=== PATIENT | male | born 1955 | race Caucasian/White ===

== ENCOUNTER 2024-03-06 20:45 | Inpatient (IN) | payer MEDICARE, SELFPAY ==
[2024-03-06] VITALS (10 sets, daily range): BP systolic 115–135; BP diastolic 78–95; BMI 28.5
[2024-03-06 16:26] LABS: Glucose - Point of Care 70 mg/dl (70-99)
--- NOTE | 2024-03-06 16:34 | ED.GENMED ---
History of Present Illness
General
Chief Complaint: Change in Mental Status
Source: health care facilities inspector, physician ([employer]) and senior living records
Exam Limitations: altered mental status
Time Seen by Provider: 03/06/24 16:25
Nursing documentation reviewed up to this point in time: agreed with
Travel History
Have you had any contact with someone who has COVID-19?: Unable to Answer
Do you have any symptoms of coronavirus? Fever > 100 degrees, chills, cough, shortness of breath, sore throat, loss of taste or smell, muscle aches, or headache?: Unable to Answer
History of Present Illness
History of Present Illness:
69-year-old male with a past medical history of hypertension, hyperlipidemia, diabetes, recent stroke, alcohol abuse who presents to the emergency department from cardiology office for a change in mental status. Patient cannot participate in
history as he is essentially unresponsive. Chart review shows that he had a stroke last year and has severe dysarthria and is a chronic senior living resident. According to caregiver patient apparently has had increasing lethargy over the past 5
days. Apparently today presented to a routine cardiology appointment and physician walked in to find patient essentially unresponsive and he was sent over to the emergency room to be assessed. Had an EKG in the office which showed sinus
tachycardia. Reviewed senior living records�patient is DNR/DNI.
Past History
Past History
ED Past Medical History: CVA (2017 and 2022), HTN, Hypercholesterolemia, NIDDM, Psychiatric (Generalized anxiety disorder) and Other (Orthostatic hypotension, episode encephalopathy January 2023)
ED Past Surgical History: Orthopedic
Patient has exhibited threatening behavior?: No
PSI?: No
Social History
Tobacco: Smoker
Alcohol: Other (unclear from October 2022)
Drug: None
Personal:
Living: with family
Employment: Employed ([employer])
Family History
Family History: Other (reviewed and non-contributory)
Review of Systems
Review of Systems
Unable to obtain full review of systems at this time due to: non-verbal
All Other Systems: Not applicable
Phy Exam
Physical Exam
Physical Exam:
General: Laying in bed eyes closed, opens eyes to vigorous physical stimulation; not responding verbally to questioning
Head: Normocephalic, atraumatic
Eyes: Conjunctiva normal, pupils are equal round and reactive to light bilaterally approximately 3 to 4 mm
Throat: Airway intact, handling secretions
Neck: Trachea midline, supple without meningismus
Lungs: Diminished at the lung bases bilaterally; his respiratory rate is in the low 20s, pulse ox 94% on room air
Heart: Tachycardia with regular rhythm, no murmurs, gallops, or rubs
Abd: Soft, non distended, no palpable masses
Neuro: Lethargic and difficult to arouse, no verbal response; he is contracted in his extremities
Extremities: Contracted, no edema in extremities, equal pulses in all extremities
Scores
Heart Failure Risk
Heart Failure Risk Score: Not Applicable
Heart Score for Chest Pain Patients
STEMI patient?: Not applicable
Withdrawal Assessment of Alcohol
Withdrawal Assessment Completed?: Not applicable
Course
Orders/Labs/Results
Orders:
Orders
03/06/24 16:25
CT Head W/o Iv Contrast Urgent
Comment:
Reason For Exam: unresponsive
03/06/24 16:26
Electrocardiogram (*1) Urgent
Reason for Study: Fatigue / Weakness
EKG- Treatment ONCE
CR Chest Portable - 1 View Urgent
Comment:
Reason For Exam: confused, eval for pna
Reason Study Needs to be Portable: Unable to Transport
03/06/24 16:27
Electrocardiogram (*1) Urgent
Reason for Study: Tachycardia
EKG- Treatment ONCE
03/06/24 16:30
Dextrose 50%-Water [Dextrose 50% Syringe] 25 grams .ROUTE .[facility]
03/06/24 16:31
Acetaminophen [Tylenol/Feverall] 650 mg .ROUTE .[facility]
03/06/24 17:00
Alcohol Urgent
CPK [Creatine Phosphokinase] Urgent
Complete Blood Count/With Diff Urgent
Comprehensive Metabolic Panel Urgent
Lactate Level [Lactic Acid] Urgent
Blood Culture Q30M
DOM Source: Blood/Venous
Specimen Description:
Blood Culture Q30M
DOM Source: Blood/Venous
Specimen Description:
03/06/24 17:30
Drug Screen, Urine [Urine Drug Abuse Screen] Urgent
Date Specimen was Collected: 03/06/24
Time Specimen was Collected: 17:28
Urinalysis Reflex To Culture Urgent
Date Specimen was Collected: 03/06/24
Time Specimen was Collected: 17:28
Urine Microscopic Reflex Cult Urgent
Urine Culture Urgent
DOM Source: U
Specimen Description:
Date Specimen was Collected: 03/06/24
Time Specimen was Collected: 17:28
03/06/24 17:32
COVID-19 Antigen Urgent
Source: Nasal Swab
Influenza A+B Rapid Molecular Urgent
DOM Source: Nasal Swab
Specimen Description:
03/06/24 18:13
Dextrose 50%-Water [Dextrose 50% Syringe] 25 grams IV NOW STA
03/06/24 18:26
Acetaminophen [Tylenol/Feverall] 650 mg RECTAL NOW STA
03/06/24 18:28
0.9% Sodium Chloride 500 ml [Nss] 500 ml IV BOLUS
03/06/24 19:30
Vancomycin 1500 mg IVPB NOW Vancomycin [Vancocin] 1,500 mg 0.9% Sodium Chloride [Nss] 20 ml 0.9% Sodium Chloride 250 ml [Nss] 250 ml IV NOW
Zosyn 3.375 grams IVPB NOW Piperacillin/Tazo 3.375 Gram [Zosyn] 3.375 gram in 50 ml IV NOW
Abnormal Lab Results
03/06/24 03/06/24
17:00 17:30
WBC 14.0 H 10^3/uL
(4.8-10.8)
MCHC 31.7 L g/dL
(33.0-37.0)
MPV 11.5 H fL
(7.4-10.4)
Abs Immat Gran (auto) 0.1 H 10^3/uL
(0-0.05)
Absolute Neuts (auto) 11.5 H 10^3/uL
(1.4-6.5)
Absolute Monos (auto) 1.2 H 10^3/uL
(0.1-0.6)
Neutrophils % 82.4 H %
(42.2-75.2)
Lymphocytes % 8.6 L %
(20.5-51.1)
Sodium 154 H mmol/L
(135-145)
Chloride 114 H mmol/L
(98-107)
BUN 75 H mg/dl
(9-20)
Creatinine 1.9 H mg/dL
(0.7-1.3)
Alkaline Phosphatase 154 H U/L
(38-126)
Creatine Kinase 294 H U/L
(55-170)
Urine Bilirubin 1+ A
(Negative)
Urine Urobilinogen 2+ A
(Neg - 1+)
Leukocyte Esterase Rfl 1+ A
(Negative)
Urine WBC (Reflex) 11-15 A /HPF
(0-5)
Urine Bacteria (Reflex) Many A
(Negative)
03/06/24 17:00
03/06/24 17:00
Vital Signs
Temp: 39.3 C
Initial and Last Documented VS:
Initial Vital Signs
Pulse Resp BP Pulse Ox
141 25 118/95 94
03/06/24 16:26 03/06/24 16:26 03/06/24 16:26 03/06/24 16:26
Last Documented Vital Signs
Temp Pulse Resp BP Pulse Ox
39.3 C H 104 18 130/83 94
03/06/24 17:14 03/06/24 17:00 03/06/24 17:00 03/06/24 17:00 03/06/24 17:00
MDM/Problems Addressed
Differential Diagnosis Includes:
Infection including UTI or pneumonia, stroke/brain hemorrhage, hypoglycemia, seizure with postictal period
MDM/Problems Addressed:
69-year-old male with history as documented presents unresponsive from cardiology office�apparently has had worsening lethargy over the past 5 days. He arrives to us tachycardic, febrile, tachypneic; normotensive, normal pulse ox. Exam as above.
EKG shows sinus tachycardia. Accu-Chek 70 on arrival given one half amp of D50. IV fluids: 500 cc bolus. Given 650 mg rectal Tylenol. IV placed labs sent off including CBC and CMP, lactate and blood cultures. Will send a urinalysis. Check a
stat chest x-ray. Call placed to [facility] take for stat CT head. Concern at this point is sepsis causing encephalopathy. Will monitor closely reassess after the above�anticipate admission.
Labs reviewed: CBC shows leukocytosis to 14 with predominant neutrophils. CMP shows significant hypernatremia 154 with an DENAE creatinine of 1.9 suspect likely hypovolemic, IV fluids in progress. Lactate less than 2. His urinalysis is positive for
infection with bacteria and pyuria. Chest x-ray shows no acute disease. Heart rate improved with fluids and antipyretic but still mildly tachycardic. Concern would be for sepsis at this point secondary to UTI. Will cover with broad-spectrum
antibiotics and admit for continued management. Case discussed with hospitalist for admission.
Chronic conditions affecting care:
Diabetes, prior stroke
*Radiology
Radiology exam reviewed: preliminary read by ED provider and radiology read reviewed
*Pulse Oximetry
Patient hypoxic: no
*EKG
Interpreted by ED Provider?: Yes
Heart Rate: 140
Rate: tachycardiac
Rhythm: sinus and sinus tachycardia
[place]: left axis deviation
Interval: normal interval
QRS Pattern: normal QRS
Ischemia: non-specific ST changes
*Critical Care Note
Total Time (30-74mins, 75-104mins- exclusive of procedures): 36
comment:
Critical care statement: A total of 36 minutes of critical care time was provided for this patient. This includes management of unstable vital signs, evaluation of the patient at bedside, frequent reassessment, discussion with
consultants/hospitalist, and review of pertinent medical records. This time was separate from time utilized to perform any aforementioned documented procedures
Data Reviewed
Review of Other/Old Records Reveals: Labs, Records and Discharge Summary
Source: records, health care facilities inspector and physician
Patient Management
Discussion with other providers: Hospitalist (Discussed with hospitalist)
Escalation/DeEscalation of care consider admission/obs:
Admission indicated
ED Attending Note
-
Portions of this chart may have been created with voice recognition software.� Occasional wrong word or��sound alike� substitutions may have occurred due to the inherent limitations of voice recognition software.
Discharge Plan
Departure
Patient Disposition: Admit
Date of Disposition: 03/06/24
Time of Disposition: 19:31
Admit to doctor: Magdalena
Presentation/result/management discussed w/ accepting MD/DO: Hospitalist
Discharge Problem:
Sepsis, Acute UTI, DENAE (acute kidney injury), Hypernatremia
Prescriptions:
No Action
acetaminophen 325 mg Tablet
650 mg PO Q6H PRN (Reason: mild pain/temp>100.4)
midodrine 5 mg Tablet
5 mg PO BID
Rx Instructions:
hold for sbp>140
magnesium hydroxide [Milk of Magnesia] 400 mg/5 mL Suspension
30 ml PO DAILY PRN (Reason: if no bm x3 days)
nystatin 100,000 unit/gram Powder
1 applic TOPICAL BID
Rx Instructions:
apply to rash on groin area
lidocaine [Aspercreme (lidocaine)] 4 % adhesive patch,medicated
1 patch topical DAILY
Patient Comments:
03/06/2024: left hip
bisacodyl 10 mg suppository
10 mg [place] DAILY PRN (Reason: if mom ineffective)
insulin aspart U-100 [Novolog FlexPen U-100 Insulin] 100 unit/mL (3 mL) insulin pen
1 - 6 sliding scale dose SC AC
Patient Comments:
03/06/2024: if 150-200= 1; 201-250=2; 251-300= 3; 301-340= 4; 341-380= 5; 381-420= 6
atorvastatin 40 mg tablet
40 mg PO QPM
thiamine HCl (vitamin B1) 100 mg tablet
100 mg PO BID
clopidogrel 75 mg tablet
75 mg PO DAILY
Fleet Enema 19-7 gram/118 mL Enema
118 ml NH DAILY PRN (Reason: if suppository is ineffective)
mupirocin 2 % Ointment
1 applic TOPICAL DAILY
Patient Comments:
03/06/2024: apply L foot great toe
furosemide 20 mg Tablet
20 mg PO DAILY
insulin aspart U-100 [Novolog FlexPen U-100 Insulin] 100 unit/mL (3 mL) Insulin Pen
13 unit SC BIDWMEAL
insulin aspart U-100 [Novolog FlexPen U-100 Insulin] 100 unit/mL (3 mL) Insulin Pen
14 sliding scale dose SC DAILY
cyclobenzaprine 5 mg Tablet
5 mg PO DAILY
melatonin 1 mg Tablet
8 mg PO DAILY@1999
pregabalin [Lyrica] 50 mg capsule
50 mg PO DAILY
pregabalin [Lyrica] 75 mg capsule
75 mg PO QPM
insulin glargine [Lantus Solostar U-100 Insulin] 100 unit/mL (3 mL) insulin pen
21 unit SC HS
Referrals:
Jesus Guerra DO [Family Provider] -
Discharge Date and Time
Print Language: ALBANIAN
[2024-03-06 17:20] LABS: % Basophils 0.2 % (0-2); % Immature Granulocytes 0.4 % (0-0.5); % Lymphocytes 8.6 % (20.5-51.1); % Monocytes 8.4 % (1.7-9.3); % Neutrophils 82.4 % (42.2-75.2); Absolute Immature Granulocytes 0.1 10^3/uL (0-0.05); Absolute Lymphocytes 1.2 10^3/uL (1.2-3.4); Absolute Monocytes 1.2 10^3/uL (0.1-0.6); Absolute Neutrophils 11.5 10^3/uL (1.4-6.5); Hematocrit 50.2 % (39.0-52.0); Hemoglobin 15.9 g/dL (13.0-18.0); Mean Corp Hgb Conc. 31.7 g/dL (33.0-37.0); Mean Corpuscular Hgb 29.3 pg (27.0-31.0); Mean Corpuscular Volume 92.6 fL (80.0-94.0); Mean Platelet Volume 11.5 fL (7.4-10.4); Nucleated Red Blood Cells % 0 % (-); Platelet Count 221 10^3/uL (130-400); Red Blood Cell Count 5.42 10^6/uL (4.70-6.10); Red Cell Dist. Width 13.9 % (11.5-14.5)
[2024-03-06 17:30] LABS: Lactic Acid 1.7 mmol/L (0.7-2.0)
[2024-03-06 17:32] LABS: AST (SGOT) 39 U/L (17-59); Albumin 4.3 g/dl (3.5-5.0); Alkaline Phosphatase 154 U/L (38-126); Blood Urea Nitrogen 75 mg/dl (9-20); Calcium 9.5 mg/dl (8.4-10.2); Carbon Dioxide 30 mmol/L (22-30); Chloride 114 mmol/L (98-107); Creatine Phosphokinase 294 U/L (55-170); Glucose 79 mg/dl (70-99); Potassium 4.2 mmol/L (3.5-5.1); Sodium 154 mmol/L (135-145); Total Bilirubin 1.3 mg/dl (0.2-1.3); Total Protein 8.2 g/dl (6.3-8.2); eGFR 37.95
[2024-03-06 17:33] LABS: ALT (SGPT) 27 U/L (0-50); Alcohol None Detected
[2024-03-06 17:47] LABS: Urine Albumin Trace (Neg - Trace); Urine Bilirubin 1+ (Negative); Urine Character Clear (Clear); Urine Color Yellow; Urine Glucose Negative (Negative); Urine Ketone Negative (Negative); Urine Leukocyte 1+ (Negative); Urine Nitrite Negative (Negative); Urine Occult Blood Negative (Negative); Urine Urobilinogen 2+ (Neg - 1+); Urine pH 6.5 (5.0-9.0)
[2024-03-06 17:59] LABS: Urine Bacteria Many (Negative); Urine Red Blood Cell 0-2 /HPF (0-2)
[2024-03-06] MEDS: DEXTROSE 50% SYRINGE 25 GRAMS IV (18:13)
[2024-03-06 18:15] LABS: Amphetamines Negative (Negative); Barbiturates Negative (Negative); Benzodiazepines Negative (Negative); Buprenorphine Negative (Negative); Cocaine Negative (Negative); Marijuana Negative (Negative); Methadone Negative (Negative); Methamphetamines Negative (Negative); Opiates Negative (Negative); Phencyclidine Negative (Negative); Tricyclic Antidepressants Negative (Negative)
[2024-03-06] MEDS: TYLENOL/FEVERALL 650 MG RECTAL (18:27)
[2024-03-06] MEDS: NSS 500 IV (18:28)
--- NOTE | 2024-03-06 19:45 | HPS.HSE ---
Family Physician
-
Family Physician: Jesus Guerra, DO
Chief Complaint
-
Lethargic
History of Present Illness
69-year-old male with a past medical history of hypertension, hyperlipidemia, diabetes, recent stroke, alcohol abuse who presents to the emergency department from cardiology office for a change in mental status. Patient is extremely lethargic.
Opens eyes when called 9. patient cannot participate in history as he is essentially unresponsive.
Positive UA. Patient received Vanco and Zosyn in ER. Patient received fluids in the ER. Admitting for further management
Medical History
Past Medical History
Past Medical History: Reports Other
Additional Past Medical History:
Cardioembolic stroke
Hypertension
Tobacco abuse disorder
Hyperlipidemia
Type 2 diabetes
Cerebral fraction
Past Surgical History: Reports None
Social History
Unable to obtain full social history at this time due to: Acuity
Family History
Family History: Not pertinent
Allergies / Home Medications
Allergies reflects when Allergies were last updated in [employer] (acquired by [employer]).
Home Medications with original date entered in [employer] (acquired by [employer])
Allergy/Medication List:
Allergies
Allergy/AdvReac Type Severity Reaction Status Date / Time
No Known Allergies Allergy Verified 06/05/23 15:06
Home Medications
acetaminophen 325 mg tablet 650 mg PO Q6H PRN mild pain/temp>100.4 06/05/23
atorvastatin 40 mg tablet 40 mg PO QPM High Cholesterol 06/05/23
bisacodyl 10 mg rectal suppository 10 mg AL DAILY PRN if mom ineffective 06/05/23
clopidogrel 75 mg tablet 75 mg PO DAILY Blood Clot Prevention/Tx 06/05/23
insulin aspart U-100 100 unit/mL (3 mL) subcutaneous pen (Novolog FlexPen U-100 Insulin aspart) 1 - 6 sliding scale dose SC AC Diabetes 06/05/23
lidocaine 4 % topical patch (Aspercreme (lidocaine)) 1 patch topical DAILY topical pain 06/05/23
magnesium hydroxide 400 mg/5 mL oral suspension (Milk of Magnesia) 30 ml PO DAILY PRN if no bm x3 days 06/05/23
midodrine 5 mg tablet 5 mg PO BID Blood Pressure 06/05/23
nystatin 100,000 unit/gram topical powder 1 applic topical BID Infection 06/05/23
thiamine HCl (vitamin B1) 100 mg tablet 100 mg PO BID Supplement 06/05/23
cyclobenzaprine 5 mg tablet 5 mg PO DAILY 03/06/24
furosemide 20 mg tablet 20 mg PO DAILY 03/06/24
insulin aspart U-100 100 unit/mL (3 mL) subcutaneous pen (Novolog FlexPen U-100 Insulin aspart) 13 unit SC BIDWMEAL 03/06/24
insulin aspart U-100 100 unit/mL (3 mL) subcutaneous pen (Novolog FlexPen U-100 Insulin aspart) 14 sliding scale dose SC DAILY 03/06/24
insulin glargine 100 unit/mL (3 mL) subcutaneous pen (Lantus Solostar U-100 Insulin) 21 unit SC HS Diabetes 03/06/24
melatonin 1 mg tablet 8 mg PO DAILY@199903/06/24
mupirocin 2 % topical ointment 1 applic topical DAILY 03/06/24
pregabalin 50 mg capsule (Lyrica) 50 mg PO DAILY 03/06/24
pregabalin 75 mg capsule (Lyrica) 75 mg PO QPM 03/06/24
sodium phosphates 19 gram-7 gram/118 mL enema (Fleet Enema) 118 ml AL DAILY PRN if suppository is ineffective 03/06/24
Review of Systems
-
Unable to obtain full review of systems at this time due to: Acuity
Physical Exam
Vital Signs
Vital Signs
Temp Pulse Resp BP Pulse Ox
102.8 F H 104 18 130/83 94
03/06/24 17:14 03/06/24 17:00 03/06/24 17:00 03/06/24 17:00 03/06/24 17:00
Physical Exam
General: Well Developed, Well Nourished and No Apparent Distress
HEENT: NormoCephalic, Moist mucous membranes and Atraumatic
Respiratory: Clear
Cardiac: S1/S2 and Regular Rhythm; No Murmur or Rub
GI: Soft, Non Tender, Non Distended and Normal Bowel Sounds; No Organomegaly
Rectal: Deferred by Provider
Musculoskeletal: No Clubbing, No Cyanosis and No Edema
Skin: No Rash
Neuro: Sedated
Laboratory Results
-
03/06/24 17:00
03/06/24 17:00
Laboratory Results
Lactic Acid 1.7 mmol/L (0.7-2.0) 03/06/24 17:00
Total Bilirubin 1.3 mg/dl (0.2-1.3) 03/06/24 17:00
AST 39 U/L (17-59) 03/06/24 17:00
ALT 27 U/L (0-50) 03/06/24 17:00
Alkaline Phosphatase 154 U/L (38-126) H 03/06/24 17:00
Data Reviewed
-
Diagnostic Radiology: Report Reviewed by me
CT Scan: Report Reviewed by me
Lab Data: Labs Reviewed by me
Impression/Plan
-
# Lethargy/sepsis likely from urinary tract infection
-WBC 14.0, tachycardia, temperature of 102.8
-Positive urinalysis
-Chest x-ray with impression of No radiographic evidence for pneumonia.Mild elevation of the right hemidiaphragm with adjacent mild subsegmental atelectasis/scarring in the right lower lung.
-Head CT No CT evidence for acute intracranial hemorrhage or obstructive hydrocephalus.
2. Moderate diffuse cerebral and cerebellar volume loss.
3. Severe white matter leukoaraiosis in the frontal and parietal lobes.
4. Chronic periventricular white matter infarcts in both frontal lobes.
5. Chronic infarcts in both thalami.
-Blood culture and urine culture sent from ER
-IV Vanco and Zosyn continued
-Tylenol as needed for fever
-Fluids continued
# Hyponatremia/acute kidney injury likely from hypovolemic
-Sodium 154, creatinine 1.9
-Fluids continued
-Monitor BMP in a.m.
# History of severe dysphagia - related to strokes.
-Has been on pur�ed diet with thickened liquids in the custodial
-Keep patient n.p.o. until fully awake
consulted speech therapy.�
#DM 2
-Sliding scale
-Accu-Chek every 6 hours as patient is n.p.o.
#Essential hypertension -stable.
# DVT prophylaxis
-Heparin subcu
DNR
[2024-03-06 20:03] LABS: COVID-19 Antigen Negative (Negative)
[2024-03-06] MEDS: ZOSYN 50 IV (20:04)
[2024-03-06] MEDS: VANCOCIN 300 MG IV (20:30)
[2024-03-06] MEDS: VANCOCIN 300 ML IV (20:30)
--- NOTE | 2024-03-06 20:32 | W.PN.UPDATE ---
Update Note
Progress Note Update
This is an addendum to the H&P written by SARINA Valenzuela on 03/06/2024. Patient seen examined independent with PROGRAMMING INTERN. 69-year-old male past medical history of prior likely embolic bilateral strokes in January 2023 with residual dysphagia, diabetes,
hypertension, normocytic anemia, presenting for change in mental status. Patient is essentially unresponsive.
Patient with tachycardia, fever 102, leukocytosis with metabolic encephalopathy/sepsis likely secondary to urinary tract infection. CT head shows no acute abnormality. Chest x-ray shows no evidence of pneumonia. Labs also show DENAE with creatinine
1.9, hypernatremia with sodium of 154. Check urine culture, blood cultures, IV fluids with normal saline. Vancomycin/Zosyn. Patient will not be able to take oral medications at this time.
--- NOTE | 2024-03-06 21:53 | PHA.VAN.IN ---
Assessment
- Assessment
Renal Function: Appears elevated from baseline (06/03/23 BASELINE SCR: 0.7)
Concomitant Antimicrobials: ZOSYN
- Previous Dosing Experience
Previous Regimen: DOSING BY RANDOM LEVELS
Date of Regimen: 06/06/23
Provided Trough of: UNKNOWN
Provided AUC of: UNKNOWN
Patient's SCR is: Elevated compared to previous dosing experience (06/06/23 SCR = 1.0)
Patient's weight is: Elevated compared to previous dosing experience (06/06/23 WT = 62.8 KG)
Plan
- Plan
Initial / Loading Dose: 1500MG
Maintenance Regimen: DOSING BY RANDOM LEVELS
Monitoring: RANDOM VANCOMYCI LEVEL 03/07/24 AM
Pharmacokinetics Vancomycin I
- -
Patient Age: 69
Patient Sex: Male
Vancomycin Day #: 1
Indication: Genito-Urinary Tract (SEPSIS)
Requesting Provider: JOSSELIN
Height / Weight:
Height 5 ft 1 in
Actual Weight 68.5 kg
Pertinent Past Medical History: DM
- Vital Signs / Lab Results
Temp Pulse Resp BP Pulse Ox
102.8 F H 98 16 121/89 95
03/06/24 17:14 03/06/24 21:00 03/06/24 21:00 03/06/24 21:00 03/06/24 21:00
Lab Results - Hematology
03/06/24
17:00
WBC 14.0 H
Lab Results - Chemistry
03/06/24
17:00
BUN 75 H
Creatinine 1.9 H
Albumin 4.3
03/06/24
17:00
Lactic Acid 1.7
Lab Results - Urine
03/06/24
17:30
Urine Nitrite (Reflex) Negative
Leukocyte Esterase Rfl 1+ A
Urine WBC (Reflex) 11-15 A
Ur Squamous Epith Cells 6-10
Urine Bacteria (Reflex) Many A
Microbiology Results
03/06/24 19:30 Influenza Types A & B (MARGOT) - Final
Nasal Swab Negative for Influenza A & B, NAAT
Negative results must be combined with clinical observations
and patient history.
Nucleic Acid Amplification test (NAAT)performed on the
[employer] platform.
[2024-03-06] MEDS: NSS 1000 IV (22:26)
[2024-03-07] VITALS (8 sets, daily range): BP systolic 119–147; BP diastolic 78–94; PULSE 100–101; O2SAT 99–100
[2024-03-07] MEDS: ZOSYN 50 IV (03:00)
--- NOTE | 2024-03-07 04:44 | DOWNTIME ---
There was a [employer] Client Transmission Assembler Downtime on 03/07/2024 from 0100 to 03/07/2024 at 0439. Downtime documentation of patient's care, including medication administrations, has been reconciled in the electronic record per guidelines. Refer to the
patient's paper chart under the miscellaneous tab to see printed paper medication records and downtime forms.
[2024-03-07 06:01] LABS: Hematocrit 44.5 % (39.0-52.0); Hemoglobin 14.2 g/dL (13.0-18.0); Mean Corp Hgb Conc. 31.9 g/dL (33.0-37.0); Mean Corpuscular Volume 94.1 fL (80.0-94.0); Mean Platelet Volume 11.8 fL (7.4-10.4); Platelet Count 166 10^3/uL (130-400); Red Blood Cell Count 4.73 10^6/uL (4.70-6.10); Red Cell Dist. Width 13.6 % (11.5-14.5); White Blood Cell Count 16.6 10^3/uL (4.8-10.8)
[2024-03-07 06:12] LABS: Blood Urea Nitrogen 83 mg/dl (9-20); Calcium 8.5 mg/dl (8.4-10.2); Carbon Dioxide 21 mmol/L (22-30); Chloride 116 mmol/L (98-107); Estimated Creatinine Clearance 35 ml/min; Glucose 197 mg/dl (70-99); Potassium 3.7 mmol/L (3.5-5.1); Sodium 154 mmol/L (135-145); eGFR 43.37
[2024-03-07 06:24] LABS: Vancomycin Random 16.1 ug/ml
[2024-03-07 08:26] LABS: Glucose - Point of Care 199 mg/dl (70-99)
--- NOTE | 2024-03-07 09:11 | W.PN.HOSP.TC ---
Today's Communication/Plan
-
Change antibiotics to IV ceftriaxone
Change IV fluids to half-normal saline
Follow electrolytes
Assessment / Plan
Assessment / Plan
# Change in mental status secondary to toxic metabolic encephalopathy
-Head CT No CT evidence for acute intracranial hemorrhage or obstructive hydrocephalus. Straight UTI and metabolic disturbance and follow-up.
# Sepsis likely from urinary tract infection
-Positive urinalysis
-Chest x-ray with impression of No radiographic evidence for pneumonia.Mild elevation of the right hemidiaphragm with adjacent mild subsegmental atelectasis/scarring in the right lower lung.
-Blood culture and urine culture sent from ER
-For UTI coverage switch antibiotics to IV ceftriaxone. E. coli in the most recent urine culture noted.
-Tylenol as needed for fever
-Fluids continued
# Hypernatremia/acute kidney injury likely from hypovolemic and poor oral intake
-Continue with IV fluids
-Speech eval once more awake
# History of severe dysphagia - related to strokes.
-Has been on pur�ed diet with thickened liquids in the [facility]
-Keep patient n.p.o. until fully awake
consulted speech therapy.�
#DM 2
-Sliding scale
-Accu-Chek every 6 hours as patient is n.p.o.
#Essential hypertension -stable.
# DVT prophylaxis
-Heparin subcu
DNR
Total time spent on today's encounter was 52 minutes which included time spent in counseling the patient regarding diagnosis and treatment plan as listed above, goals of care, and symptom management. Case was discussed with nursing staff. All labs
and imaging personally reviewed by me. Remainder the time spent in detailed review of previous records, lab data, imaging, and other medical provider documentation.
Anticipated Discharge: > 48 hours
Subjective/Interval History
-
Date of Service: March 07, 2024
Eyes open but not verbalizing. Not following commands.
lethargic.
Objective Data
-
Labs:
Laboratory Results
03/07/24
05:40
WBC 16.6 H
Hgb 14.2
Hct 44.5
Plt Count 166 D
Sodium 154 H
Potassium 3.7
Chloride 116 H
Carbon Dioxide 21 L
BUN 83 H
Creatinine 1.7 H
Glucose 197 H
Calcium 8.5
Vital Signs:
Vital Signs
Temp Pulse Resp BP Pulse Ox
99.1 F 111 20 147/85 97
03/07/24 08:00 03/07/24 08:00 03/07/24 08:00 03/07/24 08:00 03/07/24 08:00
Review of Systems
-
Unable to obtain full review of systems at this time due to: Patient Non-verbal (and lethargy; told he is severly dysarthric)
Physical Exam
-
General: No Apparent Distress
HEENT: Negative Moist Mucous Membranes (dry)
Respiratory: Rhonchi (few rhonchi bl) and Non Labored Respirations; Negative Accessory Resp Muscle Use
Cardiac: Regular Rhythm and S1/S2
GI: Soft
Neuro: Awake; Negative Alert or No Motor Deficits (Hard to examine because patient does not follow commands. Left side is weaker with increased tone)
Psych: Calm
Data Reviewed
-
Labs: Labs Reviewed by me
[2024-03-07 09:12] LABS: Glycohemoglobin (HgbA1c) 8.2 % (4.0-5.6)
[2024-03-07] MEDS: NOVOLOG FLEXPEN-LOW RESISTANCE 3 UNITS SC ×2 (10:02→13:06)
[2024-03-07 10:07] LABS: Glucose - Point of Care 238 mg/dl (70-99)
--- NOTE | 2024-03-07 10:29 | PTOTSP ---
Speech Therapy Swallowing Assessment
Currently the patient is not alert enough to safely eat. He tolerated several spoonfuls of moderately thick liquid and pureed textures without overt signs of aspiration. However, swallow timing varied widely with occasional delays of up to 45
seconds. Overt signs of aspiration with thin liquids.
Recommend
1. NPO until patient is more alert.
2. Allow meds crushed in applesauce.
3. Once patient is consistently alert, recommend IDDSI Level 4 (pureed) and Moderately Thick Liquids (honey) with supervision.
4. Aspiration precautions
5. Oral care with suction toothbrush at least 4x/daily
ST will follow.
[2024-03-07] MEDS: 0.45%NACL 1000 IV ×2 (10:31→21:12)
[2024-03-07] MEDS: HEPARIN 5000 UNITS SC ×2 (10:33→21:13)
[2024-03-07] MEDS: STERILE WATER FOR INJECTION 10 ML IV (10:35)
[2024-03-07] MEDS: ROCEPHIN 1000 MG IV (10:36)
--- NOTE | 2024-03-07 12:49 | PHA.VAN.FU ---
Vancomycin Assessment / Plan
- Assessment
Renal Function: SCR Decreasing
WBC's are: Trending Up
Concomitant Antimicrobials: ceftriaxone
- Assessment - Therapeutic Drug Monitoring
Random Level: 16.1 - drawn ~9H after 1500mg loading dose
- Dosing Plan
Dosing by Level: Re-dose today (Vanc 750mg)
- Monitoring Plan
Random Level: 03/08 0600
- Follow Up
Pharmacy will continue to follow.
Vancomycin Follow UP
- -
Patient Age: 69
Patient Sex: Male
Vancomycin Day #: 2
Indication: Genito-Urinary Tract
Requesting Provider: Dr. Johns
Pertinent Antimicrobial Allergies:
NKDA
Height / Weight:
Height 5 ft 1 in
Actual Weight 68.5 kg
Pertinent Past Medical History: DM
- Vital Signs / Lab Results
Temp Pulse Resp BP Pulse Ox
99.1 F 111 20 147/85 97
03/07/24 08:00 03/07/24 08:00 03/07/24 08:00 03/07/24 08:00 03/07/24 08:00
Lab Results - Hematology
03/06/24 03/07/24
17:00 05:40
WBC 14.0 H 16.6 H
Lab Results - Chemistry
03/06/24 03/07/24
17:00 05:40
BUN 75 H 83 H
Creatinine 1.9 H 1.7 H
Estimated Creat Clear 35
Albumin 4.3
03/06/24
17:00
Lactic Acid 1.7
Lab Results - Urine
03/06/24
17:30
Urine Nitrite (Reflex) Negative
Leukocyte Esterase Rfl 1+ A
Ur Squamous Epith Cells 6-10
Microbiology Results
03/06/24 17:30 Urine Culture - Preliminary
Urine Staph aureus MRSA
03/06/24 17:00 Blood Culture - Preliminary
Blood/Venous Positive culture in progress
Gram Stain - Preliminary
03/06/24 19:30 Influenza Types A & B (MARGOT) - Final
Nasal Swab Negative for Influenza A & B, NAAT
Negative results must be combined with clinical observations
and patient history.
Nucleic Acid Amplification test (NAAT)performed on the
[employer] platform.
Therapeutic Drug Monitoring
Random Vancomycin 16.1 ug/ml 03/07/24 05:40
[2024-03-07 13:11] LABS: Glucose - Point of Care 295 mg/dl (70-99)
[2024-03-07] MEDS: NSS IV (14:47)
[2024-03-07] MEDS: ZOSYN IV (14:47)
[2024-03-07 15:07] LABS: Glucose - Point of Care 330 mg/dl (70-99)
[2024-03-07] MEDS: VANCOCIN 150 IV (15:22)
[2024-03-07] MEDS: NOVOLOG FLEXPEN-LOW RESISTANCE 4 UNITS SC (16:14)
--- NOTE | 2024-03-07 16:42 | PTCARENOTE ---
Pt received into rm [id number], pt in existing bed from ER. Pt is oriented to self only, will sometimes answer questions when asked, follow commands at times. Sinus tach on tele. + 1 edema of the L leg. Breath sounds clear, 98% on RA. Pt is ordered NPO at
this time.
[2024-03-07 23:38] LABS: Glucose - Point of Care 318 mg/dl (70-99)
[2024-03-08] MEDS: NOVOLOG FLEXPEN-LOW RESISTANCE 4 UNITS SC ×3 (00:04→12:49)
[2024-03-08] MEDS: 0.45%NACL 1000 IV ×2 (05:51→16:53)
[2024-03-08 05:55] LABS: Glucose - Point of Care 300 mg/dl (70-99)
[2024-03-08 07:00] VITALS: BP 136/75
[2024-03-08 07:35] LABS: Hemoglobin 12.5 g/dL (13.0-18.0); Mean Corp Hgb Conc. 32.9 g/dL (33.0-37.0); Mean Corpuscular Volume 91.3 fL (80.0-94.0); Mean Platelet Volume 11.7 fL (7.4-10.4); Platelet Count 143 10^3/uL (130-400); Red Blood Cell Count 4.16 10^6/uL (4.70-6.10); Red Cell Dist. Width 13.5 % (11.5-14.5); White Blood Cell Count 12.7 10^3/uL (4.8-10.8)
[2024-03-08 07:47] LABS: Vancomycin Random 10.7 ug/ml
[2024-03-08 07:48] LABS: Blood Urea Nitrogen 69 mg/dl (9-20); Calcium 8.5 mg/dl (8.4-10.2); Carbon Dioxide 23 mmol/L (22-30); Chloride 116 mmol/L (98-107); Estimated Creatinine Clearance 76 ml/min; Glucose 323 mg/dl (70-99); Potassium 3.4 mmol/L (3.5-5.1); Sodium 150 mmol/L (135-145); eGFR > 60.00
--- NOTE | 2024-03-08 09:42 | W.PN.HOSP.TC ---
Addendum entered and electronically signed by Mo Johns MD 03/08/24 18:20:
left superficial femoral vein thrombosis noted-initiated on IV heparin and will switch to oral anticoagulations once acute issues are overall.
Original Note:
Today's Communication/Plan
-
Continue ceftriaxone vancomycin. Consult ID.
Repeat blood cultures.
Obtain ultrasound of the left leg due to swelling and also left hip x-ray.
Continue with IV fluids. Started on diet when cleared by speech therapy.
Assessment / Plan
Assessment / Plan
# Change in mental status secondary to toxic metabolic encephalopathy
-Head CT No CT evidence for acute intracranial hemorrhage or obstructive hydrocephalus. Treat UTI and metabolic disturbance and follow-up.
# Sepsis likely from urinary tract infection/ bacteremia
-Positive urinalysis
-Chest x-ray with impression of No radiographic evidence for pneumonia.Mild elevation of the right hemidiaphragm with adjacent mild subsegmental atelectasis/scarring in the right lower lung.
-For UTI coverage switch antibiotics to IV ceftriaxone. E. coli in the most recent urine culture noted.
-Tylenol as needed for fever
-Fluids continued
# Bacteremia-admitting blood cultures to/2 shows gram-positive cocci in clusters. Patient currently on vancomycin. Consult ID.
# Left hip pain full range of motion-start with a plain x-ray to rule out any fracture; might need more evaluation as pt has bacteremia.
# Hypernatremia/acute kidney injury likely from hypovolemic and poor oral intake
-Continue with IV fluids
- slowly improving Na and Cr
-Speech eval once more awake
# History of severe dysphagia - related to strokes.
-Has been on pur�ed diet with thickened liquids in the fdc
-Keep patient n.p.o. until fully awake
consulted speech therapy.�
#DM 2
-Sliding scale
-Accu-Chek every 6 hours as patient is n.p.o.
#Essential hypertension -stable.
# DVT prophylaxis
-Heparin subcu
DNR
Total time spent on today's encounter was 52 minutes which included time spent in counseling the patient regarding diagnosis and treatment plan as listed above, goals of care, and symptom management. Case was discussed with nursing staff, ID. All
labs and imaging personally reviewed by me. Remainder the time spent in detailed review of previous records, lab data, imaging, and other medical provider documentation.
Anticipated Discharge: > 48 hours
Subjective/Interval History
-
Date of Service: March 08, 2024
Patient bit more alert today. No history is available because of aphasia. He seems to be discomfort with movement of the left leg.
Objective Data
-
Labs:
Laboratory Results
03/08/24
07:06
WBC 12.7 H
Hgb 12.5 L
Hct 38.0 L
Plt Count 143
Sodium 150 H
Potassium 3.4 L
Chloride 116 H
Carbon Dioxide 23
BUN 69 H
Creatinine 0.9
Glucose 323 H
Calcium 8.5
Vital Signs:
Vital Signs
Temp Pulse Resp BP Pulse Ox
99.7 F 84 16 136/75 100
03/08/24 07:00 03/08/24 07:00 03/08/24 07:00 03/08/24 07:00 03/08/24 07:00
I&O
03/07/24 03/08/24 03/09/24
06:59 06:59 06:59
Intake Total 0 / 0
Balance 0 / 0
Review of Systems
-
Unable to obtain full review of systems at this time due to: Other (speech impairment)
Physical Exam
-
General: No Apparent Distress
HEENT: Moist Mucous Membranes
Respiratory: Clear to Auscultation (anteriorly)
Cardiac: Regular Rhythm and S1/S2; Negative Tachycardic
GI: Soft
Musculoskeletal: Edema, Left Lower Extrem and Other (PROM in left hip including joint line tenderness ; because of aphasia)
Neuro: Awake; Negative Alert, No Motor Deficits (left hemiparesis) or Slurred Speech (aphasia)
Psych: Calm
Data Reviewed
-
Labs: Labs Reviewed by me
--- NOTE | 2024-03-08 09:46 | PHA.VAN.FU ---
Vancomycin Assessment / Plan
- Assessment
Renal Function: SCR Decreasing
WBC's are: Trending Down
In the past 24 hrs, patient has been: Afebrile
Concomitant Antimicrobials: ceftriaxone
- Assessment - Therapeutic Drug Monitoring
Random Level: 10.7 - drawn ~15.5H after previous dose of 750mg
- Dosing Plan
Dosing by Level: Re-dose today (Vanc 1250mg)
Re-dose today with 1250mg (~18 mg/kg)
Keep dosing by level for now given BUN remains elevated - follow levels to ensure clearing appropriately
Will give larger single dose today but may eventually require Q12H interval
- Monitoring Plan
Random Level: 03/09 0600
- Follow Up
Pharmacy will continue to follow.
Vancomycin Follow UP
- -
Patient Age: 69
Patient Sex: Male
Vancomycin Day #: 3
Indication: Genito-Urinary Tract
Requesting Provider: Dr. Johns
Pertinent Antimicrobial Allergies:
NKDA
Height / Weight:
Height 5 ft 10 in
Actual Weight 68.5 kg
Pertinent Past Medical History: DM
- Vital Signs / Lab Results
Temp Pulse Resp BP Pulse Ox
99.7 F 84 16 136/75 100
03/08/24 07:00 03/08/24 07:00 03/08/24 07:00 03/08/24 07:00 03/08/24 07:00
Lab Results - Hematology
03/06/24 03/07/24 03/08/24
17:00 05:40 07:06
WBC 14.0 H 16.6 H 12.7 H
Lab Results - Chemistry
03/06/24 03/07/24 03/08/24
17:00 05:40 07:06
BUN 75 H 83 H 69 H
Creatinine 1.9 H 1.7 H 0.9
Estimated Creat Clear 35 76
Albumin 4.3
03/06/24
17:00
Lactic Acid 1.7
Lab Results - Urine
03/06/24
17:30
Urine Nitrite (Reflex) Negative
Leukocyte Esterase Rfl 1+ A
Ur Squamous Epith Cells 6-10
Microbiology Results
03/06/24 17:30 Urine Culture - Final
Urine Staph aureus MRSA
03/06/24 17:00 Blood Culture - Preliminary
Blood/Venous Positive culture in progress
Gram Stain - Preliminary
03/06/24 17:00 Blood Culture - Preliminary
Blood/Venous Positive culture in progress
Gram Stain - Preliminary
03/06/24 19:30 Influenza Types A & B (MARGOT) - Final
Nasal Swab Negative for Influenza A & B, NAAT
Negative results must be combined with clinical observations
and patient history.
Nucleic Acid Amplification test (NAAT)performed on the
[employer] platform.
Therapeutic Drug Monitoring
Random Vancomycin 10.7 ug/ml 03/08/24 07:06
--- NOTE | 2024-03-08 10:08 | PTOTSP ---
Speech Therapy
Patient seen bedside. Awake and remained with eyes open throughout session which is improvement from yesterday. Followed some simple one step commands though inconsistent.
Prolonged lingual pumping across trials with suspected posterior leakage and swallow delay. No coughing or changes in vocal/respiratory quality, but risk for aspiration is elevated.
Recommend
1. Begin IDDSI levle 4 and Moderately thick liqudis
2. Meds crushed in applesauce.
3. Assist to feed - Wait/watch for swallow
4. Aspiration precautions.
[2024-03-08] MEDS: HEPARIN 5000 UNITS SC (10:30)
[2024-03-08] MEDS: STERILE WATER FOR INJECTION 10 ML IV (10:31)
[2024-03-08] MEDS: ROCEPHIN 1000 MG IV (10:31)
[2024-03-08 10:56] VITALS: BP 133/74
[2024-03-08 11:37] LABS: Glucose - Point of Care 320 mg/dl (70-99)
[2024-03-08] MEDS: VANCOCIN 275 MG IV (12:51)
--- NOTE | 2024-03-08 14:11 | CON.ORTHO ---
Consultation
-
Date/Time Consultation Requested: 03/08/2024; time unknown
Date/Time Consultation Performed: 03/08/2024; 1200
Requesting Provider: Dr. Johns
Performing Provider: Anel Nelson PA-C / Dr. Rekha Bean
Reason for Consultation: Left femur fracture
Consultation - Orthopedics
History
Mr. Negron is a 69-year-old male with a past medical history of hypertension, hyperlipidemia, diabetes, recent stroke, and previous alcohol abuse seen today for his left hip. His cousin/POA, Fili, is at the bedside. He reports that Mr. Negron has had
significant deficits following his stroke. He has limited ability to ambulate and has been living at a usp. He reports that over the last month or so he has received several calls stating that staff found Jeet on the ground. He was never
evaluated following these falls. Mr. Negron is resting comfortably in bed this afternoon. He does endorse some pain about the hip, but otherwise is doing well. Unfortunately, he is currently admitted for bacteremia, dehydration, and DENAE.
His cousin, Fili, reports that he was uninsured at the time of his stroke, and they have been working on getting him insurance since. He has not had any physical therapy since having the stroke due to being uninsured.
Allergies / Home Medications
Allergy/AdvReac Type Severity Reaction Status Date / Time
No Known Allergies Allergy Verified 06/05/23 15:06
�Medication �Instructions �Recorded
acetaminophen 325 mg tablet 650 mg PO Q6H PRN mild 06/05/23
pain/temp>100.4
atorvastatin 40 mg tablet 40 mg PO QPM High Cholesterol 06/05/23
bisacodyl 10 mg rectal suppository 10 mg WA DAILY PRN if mom 06/05/23
ineffective
clopidogrel 75 mg tablet 75 mg PO DAILY Blood Clot 06/05/23
Prevention/Tx
insulin aspart U-100 100 unit/mL 1 - 6 sliding scale dose SC AC 06/05/23
(3 mL) subcutaneous pen (Novolog Diabetes
FlexPen U-100 Insulin aspart)
lidocaine 4 % topical patch 1 patch topical DAILY topical pain 06/05/23
(Aspercreme (lidocaine))
magnesium hydroxide 400 mg/5 mL 30 ml PO DAILY PRN if no bm x3 days 06/05/23
oral suspension (Milk of Magnesia)
midodrine 5 mg tablet 5 mg PO BID Blood Pressure 06/05/23
nystatin 100,000 unit/gram topical 1 applic topical BID Infection 06/05/23
powder
thiamine HCl (vitamin B1) 100 mg 100 mg PO BID Supplement 06/05/23
tablet
cyclobenzaprine 5 mg tablet 5 mg PO DAILY 03/06/24
furosemide 20 mg tablet 20 mg PO DAILY 03/06/24
insulin aspart U-100 100 unit/mL 13 unit SC BIDWMEAL 03/06/24
(3 mL) subcutaneous pen (Novolog
FlexPen U-100 Insulin aspart)
insulin aspart U-100 100 unit/mL 14 sliding scale dose SC DAILY 03/06/24
(3 mL) subcutaneous pen (Novolog
FlexPen U-100 Insulin aspart)
insulin glargine 100 unit/mL (3 21 unit SC HS Diabetes 03/06/24
mL) subcutaneous pen (Lantus
Solostar U-100 Insulin)
melatonin 1 mg tablet 8 mg PO DAILY@199903/06/24
mupirocin 2 % topical ointment 1 applic topical DAILY 03/06/24
pregabalin 50 mg capsule (Lyrica) 50 mg PO DAILY 03/06/24
pregabalin 75 mg capsule (Lyrica) 75 mg PO QPM 03/06/24
sodium phosphates 19 gram-7 118 ml WA DAILY PRN if suppository 03/06/24
gram/118 mL enema (Fleet Enema) is ineffective
Vital Signs / Lab Results
Temp Pulse Resp BP Pulse Ox
98.3 F 88 15 133/74 97
03/08/24 10:56 03/08/24 10:56 03/08/24 10:56 03/08/24 10:56 03/08/24 10:56
03/08/24 07:06
03/08/24 07:06
XR Left Hip 03/08/24 independently interpreted by me reveal displaced, angulated femoral neck fracture.
Directed exam fo the left lower extremity reveals generalized edema throughout the left lower extremity compared to contralateral side. No significant erythema, ecchymosis or lesions about the hip. Leg shortened and externally rotated. Patient
grimaces with palpation about the hip. ROM deferred secondary to known fracture. Positive log roll. Thigh soft and compressible. Calf soft and nontender. Patient able to wiggle toes, plantar and dorsiflex ankle. Neurovascularly intact distally.
Assessment / Plan
Left femoral neck fracture
--Unfortunately, Mr. Negron sustained a femoral neck fracture, likely in one of his recent falls. We recommend a left hip hemiarthroplasty. We discussed that Mr. Negron's activity will still be limited secondary to the residual deficits from his
stroke, but his pain will be improved following surgery. The risks, benefits, alteratives, recovery process and potential complications were discussed in detail. POA verbalized understanding, and would like to proceed with surgical intervention of
his fracture. Surgical and blood consents are signed and in the patient's chart. We will tentatively plan for OR Tuesday (03/12/24) under the direction of Dr. Bean. Patient will certainly need clearance from medical team given current bacteremia.
We appreciate the assistance of all teams in care of this patient.
--NWB to LLE until surgery.
--NPO after midnight for tentative OR Monday 03/12.
--Continue pain control per primary. Ice and elevation prn for pain and edema control.
--Orthopedics will continue to follow along.
[2024-03-08 15:00] VITALS: BP 124/66
--- NOTE | 2024-03-08 16:45 | CON.ID ---
Consultation
-
Date/Time Consultation Requested: 03/08/2024 08:53
Date/Time Consultation Performed: 03/08/2024 1646
Requesting Provider: Dr. Johns
Performing Provider: Dr. Dias
Reason for Consultation: Bacteremia
Chief Complaint / Past History
History of Present Illness
Jeet Negron is a 69-year-old man being evaluated at the request of Dr. Johns in regards to bacteremia. History is obtained from chart review along with patient interview, although the patient was found to be able to provide exceedingly limited
history to me.
The patient has a significant past medical history of CVA, and resides in a assisted. He presented to [facility] 03/06/2025 from his head sulfide operator's office secondary to reported change in mental status. He was found in the ER to be
essentially unresponsive, and according to reviewed notes he has had increasing lethargy over the prior 5 days prior to admission.
Workup in the emergency room included blood cultures which are now found to be positive. He additionally was found to have leukocytosis, along with hyponatremia. Imaging of the left hip today shows an acute fracture through the left femoral neck.
He has been evaluated by Orthopedics and is tentatively for the OR on 03/12/2024.
Currently the patient reports left hip discomfort, but cannot provide any further additional history for me.
Past History
Additional Past Medical History:
Hx CVA
HTN
Dyslipidemia
DM
Anxiety
Past Surgical History: Orthopedic
Allergy History:
No Known Allergies Allergy (Verified 06/05/23 15:06)
Medications Reviewed: Yes
Current Antibiotics:
Ceftriaxone
Vancomycin
Social History
Tobacco: Smoker
Alcohol: None
Drug: None
Living: Alf
Employment: Disabled
Family History
Family History: Unable to Obtain
Review of Systems
Vital Signs
Temp Pulse Resp BP Pulse Ox
98 F 80 17 124/66 99
03/08/24 15:00 03/08/24 15:00 03/08/24 15:00 03/08/24 15:00 03/08/24 15:00
Physical Exam
Physical Exam
Constitutional: No Acute Distress, Comfortable, Chronically Ill and Non-toxic
Eyes: No Conjunctival Hemorrhage and Sclera Anicteric
Oral: No Thrush and No Ulcers
Cardiovascular: S1/S2; Negative S3/S4
Pulmonary: Clear; Negative Wheezes, Rales or Rhonchi
Gastrointestinal: Soft, Non Tender, Non Distended, Normal Bowel Sounds, No Rebound and No Guarding
Genito-Urinary: Negative Cabrera
Extremities: Negative Edema, Cyanosis or Erythema
Musculoskeletal: Other (Left hip tenderness)
Skin: Warm and Dry; Negative Rash or Jaundice
Neurological: Awake, Alert and Other (lethargic)
Lab / Diagnostic Study Results
03/08/24 07:06
03/08/24 07:06
Abs Immat Gran (auto) 0.1 10^3/uL (0-0.05) H 03/06/24 17:00
Absolute Neuts (auto) 11.5 10^3/uL (1.4-6.5) H 03/06/24 17:00
Absolute Lymphs (auto) 1.2 10^3/uL (1.2-3.4) 03/06/24 17:00
Absolute Monos (auto) 1.2 10^3/uL (0.1-0.6) H 03/06/24 17:00
Absolute Basos (auto) 0.0 10^3/uL (0-0.2) 03/06/24 17:00
Immature Gran % 0.4 % (0-0.5) 03/06/24 17:00
Neutrophils % 82.4 % (42.2-75.2) H 03/06/24 17:00
Lymphocytes % 8.6 % (20.5-51.1) L 03/06/24 17:00
Monocytes % 8.4 % (1.7-9.3) 03/06/24 17:00
Eosinophils % 0.0 % (0-6) 03/06/24 17:00
Basophils % 0.2 % (0-2) 03/06/24 17:00
Lactic Acid 1.7 mmol/L (0.7-2.0) 03/06/24 17:00
Ur Squamous Epith Cells 6-10 /LPF (Few) 03/06/24 17:30
Microbiology Results
Micro:
03/06/24 17:00 Blood Culture - Preliminary
Blood/Venous Coagulase neg. staphylococcus
Gram Stain - Preliminary
03/06/24 17:00 Blood Culture - Preliminary
Blood/Venous Coagulase neg. staphylococcus
Gram Stain - Preliminary
03/06/24 17:30 Urine Culture - Final
Urine Staph aureus MRSA
03/08/24 07:06 Blood Culture - Pending
Blood/Venous
03/06/24 19:30 Influenza Types A & B (MARGOT) - Final
Nasal Swab Negative for Influenza A & B, NAAT
Negative results must be combined with clinical observations
and patient history.
Nucleic Acid Amplification test (NAAT)performed on the
[employer] platform.
Assessment / Plan
Bacteremia with CoNS (3 of 4 bottles)
MRSA bacteriURIA
Left hip Fx
Hx CVA
HTN
Dyslipidemia
DM
Anxiety
Recommendations:
Continue with vancomycin for the present.
Will ask microbiology to workup the isolated coag negative staph to determine species.
Repeat blood cultures to assess clearance have been collected. Will await results.
Monitor white count and temperature curve.
Follow vancomycin levels.
[2024-03-08 17:04] LABS: Glucose - Point of Care 299 mg/dl (70-99)
[2024-03-08] MEDS: NOVOLOG FLEXPEN-LOW RESISTANCE 3 UNITS SC (17:41)
[2024-03-08 18:43] LABS: Hematocrit 38.2 % (39.0-52.0); Hemoglobin 12.2 g/dL (13.0-18.0); Mean Corp Hgb Conc. 31.9 g/dL (33.0-37.0); Mean Corpuscular Volume 94.1 fL (80.0-94.0); Platelet Count 136 10^3/uL (130-400); Red Blood Cell Count 4.06 10^6/uL (4.70-6.10); Red Cell Dist. Width 13.3 % (11.5-14.5); White Blood Cell Count 10.8 10^3/uL (4.8-10.8)
--- NOTE | 2024-03-08 19:07 | W.PN.UPDATE ---
Update Note
Progress Note Update
Patient was seen and examined and I spoke with his cousin who is his power of senior trial attorney Iraj Willoughby. I agree with orthopedic PA note. Patient is nonverbal. Patient lays in bed and contorted position. Patient is mainly a nonambulator but
apparently according to his cousin he does somehow get out of bed and has fallen over the past month on several occasions.
Left lower extremity: Flexed and externally rotated. Positive logroll. Patient has soft tissue breakdown. This is pre-existing.
X-rays performed at [facility] and lateral of the left hip shows a displaced left femoral neck fracture.
Impression: Displaced left femoral neck fracture
Plan: Nonoperative and operative approaches were discussed with patient's cousin/power of senior trial attorney,Iraj. The goal of treatment is palliative care to allow for him to be moved from bed to chair or bed to wheelchair without discomfort. I recommend
left hip hemiarthroplasty. They understand that this needs to be delayed due to his current state of bacteremia, severe dehydration, and acute kidney insufficiency. Currently we have him on the operating room schedule for Tuesday If the patient is
medically optimized and cleared from his systemic infection. The risks are but are not limited to infection, need for further surgery, need for physical therapy, stiffness, DVT, PE, AR, CVA, , periprosthetic fracture, hip dislocation,
neurovascular impairment, foot drop, leg length discrepancy, catastrophic occurrences, etc. All questions were answered.
[2024-03-08] MEDS: HEPARIN 25000 UNITS/250 ML IV (19:45)
[2024-03-08 20:00] VITALS: BP 155/90
[2024-03-08 21:33] LABS: Glucose - Point of Care 273 mg/dl (70-99)
[2024-03-09] VITALS (7 sets, daily range): BP systolic 129–157; BP diastolic 72–93
[2024-03-09 02:23] LABS: APTT 114.7 Sec (23.4-35.0)
[2024-03-09 07:00] LABS: Glucose - Point of Care 269 mg/dl (70-99)
[2024-03-09] MEDS: ROCEPHIN 1000 MG IV (09:20)
[2024-03-09] MEDS: NOVOLOG FLEXPEN-LOW RESISTANCE 3 UNITS SC ×2 (09:20→16:41)
[2024-03-09 09:57] LABS: Hematocrit 38.9 % (39.0-52.0); Hemoglobin 12.7 g/dL (13.0-18.0); Mean Corp Hgb Conc. 32.6 g/dL (33.0-37.0); Mean Corpuscular Hgb 29.7 pg (27.0-31.0); Mean Corpuscular Volume 90.9 fL (80.0-94.0); Mean Platelet Volume 12.2 fL (7.4-10.4); Platelet Count 136 10^3/uL (130-400); Red Blood Cell Count 4.28 10^6/uL (4.70-6.10); Red Cell Dist. Width 13.4 % (11.5-14.5); White Blood Cell Count 8.3 10^3/uL (4.8-10.8)
[2024-03-09 10:12] LABS: APTT 84.7 Sec (23.4-35.0)
[2024-03-09 10:31] LABS: Vancomycin Random 10.1 ug/ml
[2024-03-09] MEDS: STERILE WATER FOR INJECTION 10 ML IV (10:40)
[2024-03-09 10:54] LABS: Blood Urea Nitrogen 40 mg/dl (9-20); Calcium 8.6 mg/dl (8.4-10.2); Carbon Dioxide 26 mmol/L (22-30); Chloride 121 mmol/L (98-107); Estimated Creatinine Clearance 98 ml/min; Glucose 296 mg/dl (70-99); Potassium 3.7 mmol/L (3.5-5.1); Sodium 151 mmol/L (135-145); eGFR > 60.00
--- NOTE | 2024-03-09 11:00 | PHA.VAN.FU ---
Vancomycin Assessment / Plan
- Assessment
Renal Function: Stable
WBC's are: WNL
In the past 24 hrs, patient has been: Afebrile
- Assessment - Therapeutic Drug Monitoring
Random Level: 10.1
- Dosing Plan
Dosing by Level: Re-dose today (1250mg)
Keep dosing by level for now given BUN remains elevated - follow levels to ensure clearing appropriately
Will give larger single dose today but may eventually require Q12H interval
- Monitoring Plan
Random Level: 03/10 @ 0600
- Follow Up
Pharmacy will continue to follow.
Vancomycin Follow UP
- -
Patient Age: 69
Patient Sex: Male
Vancomycin Day #: 4
Indication: Genito-Urinary Tract
Requesting Provider: Dr. Johns
Pertinent Antimicrobial Allergies:
NKDA
Height / Weight:
Height 5 ft 10 in
Actual Weight 68.5 kg
Pertinent Past Medical History: DM
- Vital Signs / Lab Results
Temp Pulse Resp BP Pulse Ox
98.3 F 83 16 141/85 98
03/09/24 07:00 03/09/24 07:00 03/09/24 07:00 03/09/24 07:00 03/09/24 07:00
Lab Results - Hematology
03/06/24 03/07/24 03/08/24
17:00 05:40 07:06
WBC 14.0 H 16.6 H 12.7 H
03/08/24 03/09/24
18:34 09:42
WBC 10.8 8.3
Lab Results - Chemistry
03/06/24 03/07/24 03/08/24
17:00 05:40 07:06
BUN 75 H 83 H 69 H
Creatinine 1.9 H 1.7 H 0.9
Estimated Creat Clear 35 76
Albumin 4.3
03/09/24
09:42
BUN 40 H
Creatinine 0.7
Estimated Creat Clear 98
Albumin
03/06/24
17:00
Lactic Acid 1.7
Microbiology Results
03/06/24 17:00 Blood Culture - Preliminary
Blood/Venous Staphylococcus epidermidis
Additional testing on request
Gram Stain - Preliminary
03/06/24 17:00 Blood Culture - Preliminary
Blood/Venous Coagulase neg. staphylococcus
Gram Stain - Preliminary
03/08/24 07:06 Blood Culture - Preliminary
Blood/Venous No Growth in 24 hours- Final report to follow
03/06/24 17:30 Urine Culture - Final
Urine Staph aureus MRSA
Therapeutic Drug Monitoring
Random Vancomycin 10.1 ug/ml 03/09/24 09:42
[2024-03-09 11:31] LABS: Glucose - Point of Care 311 mg/dl (70-99)
[2024-03-09] MEDS: VANCOCIN 275 MG IV (12:51)
[2024-03-09] MEDS: NOVOLOG FLEXPEN-LOW RESISTANCE 4 UNITS SC (12:51)
--- NOTE | 2024-03-09 14:30 | W.PN.ID1 ---
Date of Service
Date of Service: March 09, 2024
Today's Communication
continue vanco for today.
Assessment / Plan
Bacteremia with CoNS (3 of 4 bottles)
- suspect contaminate
MRSA bacteriURIA / possible UTI
Left hip Fx
Hx CVA
HTN
Dyslipidemia
DM
Anxiety
Recommendations:
Continue with vancomycin for the present.
Suspect blood cultures are cantinate only.
Repeat blood cultures to assess clearance have been collected. Will await results.
Monitor white count and temperature curve.
Follow vancomycin levels.
For tentative left hip ORIF on Tuesday.
Chief Complaint
-: Leukocytosis and Bacteremia
Subjective / Review of Systems
Review of Systems: No Fever
Vital Signs / Physical Exam
Vital Signs
Vital Signs
Temp Pulse Resp BP Pulse Ox
97.7 F 84 14 133/81 100
03/09/24 11:00 03/09/24 11:00 03/09/24 11:00 03/09/24 11:00 03/09/24 11:00
Physical Exam
Constitutional: Chronically Ill and Non-toxic
Eyes: No Conjunctival Hemorrhage and Sclera Anicteric
Cardiovascular: S1/S2; Negative S3/S4 or Murmur
Pulmonary: Non Labored
Gastrointestinal: Soft and Non Distended
Skin: Warm and Dry; Negative Rash or Jaundice
Neurological: Awake and Other (minimally verbal)
Objective Data
Lab Data
Lab Results
03/09/24 09:42
03/09/24 09:42
APTT 84.7 Sec (23.4-35.0) H 03/09/24 09:42
Estimated Creat Clear 98 ml/min 03/09/24 09:42
Lactic Acid 1.7 mmol/L (0.7-2.0) 03/06/24 17:00
Total Bilirubin 1.3 mg/dl (0.2-1.3) 03/06/24 17:00
AST 39 U/L (17-59) 03/06/24 17:00
ALT 27 U/L (0-50) 03/06/24 17:00
Alkaline Phosphatase 154 U/L (38-126) H 03/06/24 17:00
Most recent labs reviewed.
Micro Results:
03/09/24 09:42 Blood Culture - Pending
Blood/Venous
03/06/24 17:00 Blood Culture - Preliminary
Blood/Venous Staphylococcus epidermidis
Additional testing on request
Gram Stain - Preliminary
03/06/24 17:00 Blood Culture - Preliminary
Blood/Venous Coagulase neg. staphylococcus
Gram Stain - Preliminary
03/08/24 07:06 Blood Culture - Preliminary
Blood/Venous No Growth in 24 hours- Final report to follow
03/06/24 17:30 Urine Culture - Final
Urine Staph aureus MRSA
03/06/24 19:30 Influenza Types A & B (MARGOT) - Final
Nasal Swab Negative for Influenza A & B, NAAT
Negative results must be combined with clinical observations
and patient history.
Nucleic Acid Amplification test (NAAT)performed on the
[employer] platform.
--- NOTE | 2024-03-09 15:16 | W.PN.HOSP.TC ---
Today's Communication/Plan
-
treat UTI
correct sodium
then hip fracture repair
Assessment / Plan
Assessment / Plan
pt is a 69 year old male
Change in mental status secondary to toxic metabolic encephalopathy--Head CT No CT evidence for acute intracranial hemorrhage or obstructive hydrocephalus--Treat UTI and metabolic disturbance and follow-up.
Sepsis likely from urinary tract infection/ bacteremia---Positive urinalysis--blood cultures suspected of being a contaminant per ID (coag neg staph)--cont vanco--apprec ID
Left hip pain full range of motion--acute left hip fracture--apprec ortho--for surgery Tuesday
Hypernatremia/acute kidney injury likely from hypovolemic and poor oral intake--cont with 1/4NSS at 60ml
History of severe dysphagia - related to strokes--Has been on pur�ed diet with thickened liquids in the senior living--apprec speech
Type DM 2--Sliding scale--Accu-Chek every 6 hours as patient is n.p.o.
Essential hypertension -stable.
DVT prophylaxis--Heparin subcu
code status --DNR
Anticipated Discharge: > 48 hours
Subjective/Interval History
-
Date of Service: March 09, 2024
pt speaks very little--unclear how much Belarusian he understands
Objective Data
-
Labs:
Laboratory Results
03/09/24 03/09/24
09:42 15:45
WBC 8.3
Hgb 12.7 L
Hct 38.9 L
Plt Count 136
APTT 84.7 H Pending
Sodium 151 H
Potassium 3.7
Chloride 121 H
Carbon Dioxide 26
BUN 40 H
Creatinine 0.7
Glucose 296 H
Calcium 8.6
Vital Signs:
max temp for 24 hours
03/09/24
03:39
Temp 98.5 F
Vital Signs
Temp Pulse Resp BP Pulse Ox
97.7 F 84 14 133/81 100
03/09/24 11:00 03/09/24 11:00 03/09/24 11:00 03/09/24 11:00 03/09/24 11:00
I&O
03/08/24 03/09/24 03/10/24
06:59 06:59 06:59
Intake Total 0 / 0 220 / 220
Balance 0 / 0 / 220
Review of Systems
-
Unable to obtain full review of systems at this time due to: Other (unsure if dementia, language barrier as cause for minimal interaction)
Physical Exam
-
General: Well Developed and Well Nourished
HEENT: Normocephalic and Atraumatic
Respiratory: Clear to Auscultation; Negative Wheezes or Rhonchi
Cardiac: Regular Rhythm and S1/S2; Negative Murmur
GI: Soft, Nontender, Nondistended and Normal Bowel Sounds
Musculoskeletal: No Clubbing, No Cyanosis and No Edema
Neuro: Awake
Psych: Calm
[2024-03-09] MEDS: SODIUM CHLORIDE 1009.625 MEQ IV (16:19)
[2024-03-09 16:33] LABS: Glucose - Point of Care 269 mg/dl (70-99)
--- NOTE | 2024-03-09 16:39 | W.PN.UPDATE ---
Update Note
Progress Note Update
Patient seen this morning on a.m. rounds.
Plan for left hip hemiarthroplasty for displaced femoral neck fracture with Dr. Bean 12 March 2024. Patient currently admitted and suspected bacteremic septic relative to UTI at this timeframe. Pending further medical treatment optimization
for OR; will continue to follow
[2024-03-09 17:52] LABS: APTT 96.2 Sec (23.4-35.0)
[2024-03-09] MEDS: HEPARIN 25000 UNITS/250 ML IV (18:55)
--- NOTE | 2024-03-09 19:45 | PTCARENOTE ---
Patient placed on static air mattress for pressure ulcer prevention. Skin intact at sacrum. [id number]. Dressing changed to L foot/L great toe.
[2024-03-09 21:10] LABS: Glucose - Point of Care 254 mg/dl (70-99)
[2024-03-10 07:00] VITALS: BP 160/93
[2024-03-10 08:02] LABS: Hematocrit 35.1 % (39.0-52.0); Hemoglobin 11.4 g/dL (13.0-18.0); Mean Corp Hgb Conc. 32.5 g/dL (33.0-37.0); Mean Corpuscular Hgb 29.5 pg (27.0-31.0); Mean Corpuscular Volume 90.9 fL (80.0-94.0); Platelet Count 142 10^3/uL (130-400); Red Blood Cell Count 3.86 10^6/uL (4.70-6.10); Red Cell Dist. Width 13.5 % (11.5-14.5); White Blood Cell Count 8.5 10^3/uL (4.8-10.8)
[2024-03-10 08:08] LABS: Glucose - Point of Care 291 mg/dl (70-99)
[2024-03-10 08:11] LABS: APTT 103.5 Sec (23.4-35.0)
[2024-03-10 08:16] LABS: Albumin 2.6 g/dl (3.5-5.0); Blood Urea Nitrogen 29 mg/dl (9-20); Carbon Dioxide 27 mmol/L (22-30); Estimated Creatinine Clearance 98 ml/min; Total Protein 5.3 g/dl (6.3-8.2); eGFR > 60.00
[2024-03-10 08:37] LABS: Vancomycin Random 10.5 ug/ml
[2024-03-10] MEDS: NOVOLOG FLEXPEN-LOW RESISTANCE 3 UNITS SC (08:39)
[2024-03-10] MEDS: ROCEPHIN 1000 MG IV (08:40)
[2024-03-10] MEDS: STERILE WATER FOR INJECTION 10 ML IV (08:40)
[2024-03-10 08:50] LABS: ALT (SGPT) 34 U/L (0-50); AST (SGOT) 29 U/L (17-59); Alkaline Phosphatase 129 U/L (38-126); Calcium 8.1 mg/dl (8.4-10.2); Chloride 121 mmol/L (98-107); Glucose 302 mg/dl (70-99); Magnesium 2.4 mg/dl (1.6-2.3); Potassium 3.3 mmol/L (3.5-5.1); Sodium 149 mmol/L (135-145); Total Bilirubin 0.9 mg/dl (0.2-1.3)
--- NOTE | 2024-03-10 09:03 | PHA.VAN.FU ---
Vancomycin Assessment / Plan
- Assessment
Renal Function: Stable (BUN STILL ELEVATED BUT IMPROVING)
WBC's are: WNL
In the past 24 hrs, patient has been: Afebrile
Concomitant Antimicrobials: CEFTRIAXONE
- Assessment - Therapeutic Drug Monitoring
Random Level: 10.5
- Dosing Plan
Dosing by Level: Re-dose today (1500MG)
Dosing Comments: CONSIDER SWITCHING TO SCHEDULE IF BUN DECREASES TOMORROW
- Monitoring Plan
Random Level: 03/11 IN AM
- Follow Up
Pharmacy will continue to follow.
Vancomycin Follow UP
- -
Patient Age: 69
Patient Sex: Male
Vancomycin Day #: 5
Indication: Genito-Urinary Tract
Requesting Provider: Dr. Johns
Pertinent Antimicrobial Allergies:
NKDA
Height / Weight:
Height 5 ft 10 in
Actual Weight 68.5 kg
Pertinent Past Medical History: DM
- Vital Signs / Lab Results
Temp Pulse Resp BP Pulse Ox
97.6 F 88 16 160/93 98
03/10/24 07:00 03/10/24 07:00 03/10/24 07:00 03/10/24 07:00 03/10/24 07:00
Lab Results - Hematology
03/08/24 03/08/24 03/09/24
07:06 18:34 09:42
WBC 12.7 H 10.8 8.3
03/10/24
07:15
WBC 8.5
Lab Results - Chemistry
03/08/24 03/09/24 03/10/24
07:06 09:42 07:15
BUN 69 H 40 H 29 H
Creatinine 0.9 0.7 0.7
Estimated Creat Clear 76 98 98
Albumin 2.6 L
Microbiology Results
03/08/24 07:06 Blood Culture - Preliminary
Blood/Venous No Growth in 48 hours- Final report to follow
03/06/24 17:00 Blood Culture - Preliminary
Blood/Venous Staphylococcus epidermidis
Additional testing on request
Gram Stain - Preliminary
03/06/24 17:00 Blood Culture - Preliminary
Blood/Venous Coagulase neg. staphylococcus
Gram Stain - Preliminary
03/06/24 17:30 Urine Culture - Final
Urine Staph aureus MRSA
Therapeutic Drug Monitoring
Random Vancomycin 10.5 ug/ml 03/10/24 07:15
[2024-03-10] MEDS: VANCOCIN 300 ML IV (09:35)
[2024-03-10] MEDS: VANCOCIN 300 MG IV (09:35)
[2024-03-10] MEDS: SODIUM CHLORIDE 1009.625 MEQ IV (09:35)
--- NOTE | 2024-03-10 09:55 | W.PN.UPDATE ---
Update Note
Progress Note Update
Patient seen and evaluated by orthopedic surgery this morning on rounds.
Plan for left hip hemiarthroplasty for displaced femoral neck fracture with Dr. Bean on 03/12/2024, as long as medically optimized and cleared from his systemic infection. Surgery is currently delayed due to his current state of
bacteremia, severe dehydration, and acute kidney insufficiency.
Plan:
- NWB LLE until post-op.
- NPO pMN Tuesday03/11/2024 for tentative OR Tuesday03/12/2024.
- Continue pain control per primary. Ice and elevation for pain and edema control.
- Preoperative Ancef and irrigation on-call to OR.
- Hemoglobin this AM 11.4. Continue to monitor and trend.
- Orthopedic surgery will continue to follow along.
[2024-03-10 11:31] LABS: Glucose - Point of Care 356 mg/dl (70-99)
[2024-03-10] MEDS: NOVOLOG FLEXPEN-LOW RESISTANCE 5 UNITS SC ×2 (12:34→17:02)
--- NOTE | 2024-03-10 13:13 | CM ---
CM following re: discharge planning.
Reviewed pt's chart, met with pt.
Pt is a 69 year old male, admitted with primary dx of toxic metabolic encephalopathy.
Pt is not a great historian. 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 Pt is on bed hold at [facility]. Pt's cousin has POA.
D/C plan: return back to [facility] when medically stable.
CM will follow with discharge plan updates as hospitalization progresses
[2024-03-10 15:00] VITALS: BP 132/66
--- NOTE | 2024-03-10 15:02 | W.PN.HOSP.TC ---
Today's Communication/Plan
-
increase IVF rate
treat MRSA UTI--cont vanco
for surgery Tuesday
Assessment / Plan
Assessment / Plan
pt is a 69 year old male
Change in mental status secondary to toxic metabolic encephalopathy--Head CT No CT evidence for acute intracranial hemorrhage or obstructive hydrocephalus--Treat UTI and metabolic disturbance and follow-up.
Sepsis likely from urinary tract infection/ bacteremia---MRSA UTI--blood cultures suspected of being a contaminant per ID (coag neg staph)--cont vanco--apprec ID
Left hip pain--acute left hip fracture--apprec ortho--for surgery Tuesday
Hypernatremia/acute kidney injury likely from hypovolemic and poor oral intake--cont with 1/4NSS at 80ml
hypokalemia--replete
History of severe dysphagia - related to strokes--Has been on pur�ed [facility]--apprec speech
Type DM 2--Sliding scale--Accu-Chek every 6 hours as patient is n.p.o.
Essential hypertension -stable.
DVT prophylaxis--Heparin subcu
code status --DNR
Anticipated Discharge: > 48 hours
Subjective/Interval History
-
Date of Service: March 10, 2024
pt did not react when I went in the room
Objective Data
-
Labs:
Laboratory Results
03/10/24
07:15
WBC 8.5
Hgb 11.4 L
Hct 35.1 L
Plt Count 142
APTT 103.5 H
Sodium 149 H
Potassium 3.3 L
Chloride 121 H
Carbon Dioxide 27
BUN 29 H
Creatinine 0.7
Glucose 302 H
Calcium 8.1 L
Total Bilirubin 0.9
AST 29
ALT 34
Alkaline Phosphatase 129 H
Vital Signs:
max temp for 24 hours
03/10/24
11:00
Temp 98.8 F
Vital Signs
Temp Pulse Resp BP Pulse Ox
98.8 F 87 16 160/93 93
03/10/24 11:00 03/10/24 11:00 03/10/24 11:00 03/10/24 07:00 03/10/24 11:00
I&O
03/09/24 03/10/24 03/11/24
06:59 06:59 06:59
Intake Total 220 / 220 650 / 650
Balance 220 / 220 650 / 650
Review of Systems
-
Unable to obtain full review of systems at this time due to: Acuity
Physical Exam
-
General: Appears Chronically Ill
HEENT: Normocephalic and Atraumatic
Respiratory: Clear to Auscultation; Negative Wheezes or Rhonchi
Cardiac: Regular Rhythm and S1/S2; Negative Murmur
GI: Soft, Nontender, Nondistended and Normal Bowel Sounds
Musculoskeletal: No Clubbing, No Cyanosis and No Edema
Neuro: Negative Awake
[2024-03-10] MEDS: KCL 270 MEQ IV (16:35)
[2024-03-10 16:49] LABS: Glucose - Point of Care 355 mg/dl (70-99)
[2024-03-10] MEDS: HEPARIN 25000 UNITS/250 ML IV (17:05)
[2024-03-10 19:32] VITALS: BP 121/80
[2024-03-10 22:02] LABS: Glucose - Point of Care 292 mg/dl (70-99)
[2024-03-10 23:20] VITALS: BP 118/71
[2024-03-11 03:36] VITALS: BP 130/74
[2024-03-11 07:25] LABS: Glucose - Point of Care 313 mg/dl (70-99)
[2024-03-11 07:46] LABS: Hematocrit 34.4 % (39.0-52.0); Hemoglobin 11.1 g/dL (13.0-18.0); Mean Corp Hgb Conc. 32.3 g/dL (33.0-37.0); Mean Corpuscular Hgb 29.8 pg (27.0-31.0); Mean Corpuscular Volume 92.5 fL (80.0-94.0); Mean Platelet Volume 13.3 fL (7.4-10.4); Platelet Count 139 10^3/uL (130-400); Red Blood Cell Count 3.72 10^6/uL (4.70-6.10); Red Cell Dist. Width 13.5 % (11.5-14.5); White Blood Cell Count 7.3 10^3/uL (4.8-10.8)
[2024-03-11] MEDS: NOVOLOG FLEXPEN-LOW RESISTANCE 4 UNITS SC (07:52)
[2024-03-11 07:54] LABS: Vancomycin Random 10.7 ug/ml
[2024-03-11 08:00] VITALS: BP 144/86
[2024-03-11 08:11] LABS: APTT 79.3 Sec (23.4-35.0)
[2024-03-11 08:18] LABS: Blood Urea Nitrogen 23 mg/dl (9-20); Calcium 8.1 mg/dl (8.4-10.2); Carbon Dioxide 27 mmol/L (22-30); Chloride 120 mmol/L (98-107); Estimated Creatinine Clearance 114 ml/min; Glucose 277 mg/dl (70-99); Magnesium 2.2 mg/dl (1.6-2.3); Potassium 3.6 mmol/L (3.5-5.1); Sodium 149 mmol/L (135-145); eGFR > 60.00
[2024-03-11] MEDS: SODIUM CHLORIDE 1009.625 MEQ IV (08:28)
[2024-03-11] MEDS: ROCEPHIN 1000 MG IV (08:29)
[2024-03-11] MEDS: STERILE WATER FOR INJECTION 10 ML IV (08:29)
--- NOTE | 2024-03-11 09:04 | PHA.VAN.FU ---
Vancomycin Assessment / Plan
- Assessment
Renal Function: SCR Decreasing
WBC's are: WNL
In the past 24 hrs, patient has been: Afebrile
Concomitant Antimicrobials: CEFTRIAXONE
- Assessment - Therapeutic Drug Monitoring
Random Level: 10.7
- Dosing Plan
Adjust Regimen to: 1000MG Q12H
New Regimen Predicts: AUC (498), Peak (32.1), Trough (12.3)
- Monitoring Plan
No level(s) ordered at this time: consider at steady state
- Follow Up
Pharmacy will continue to follow.
Vancomycin Follow UP
- -
Patient Age: 69
Patient Sex: Male
Vancomycin Day #: 6
Indication: Genito-Urinary Tract
Requesting Provider: Dr. Johns
Pertinent Antimicrobial Allergies:
NKDA
Height / Weight:
Height 5 ft 10 in
Actual Weight 68.5 kg
Pertinent Past Medical History: DM
- Vital Signs / Lab Results
Temp Pulse Resp BP Pulse Ox
98.5 F 85 18 144/86 97
03/11/24 08:00 03/11/24 08:00 03/11/24 03:36 03/11/24 08:00 03/11/24 08:00
Lab Results - Hematology
03/08/24 03/09/24 03/10/24
18:34 09:42 07:15
WBC 10.8 8.3 8.5
03/11/24
06:53
WBC 7.3
Lab Results - Chemistry
03/09/24 03/10/24 03/11/24
09:42 07:15 06:53
BUN 40 H 29 H 23 H
Creatinine 0.7 0.7 0.6 L
Estimated Creat Clear 98 98 114
Albumin 2.6 L
Microbiology Results
03/08/24 07:06 Blood Culture - Preliminary
Blood/Venous No Growth in 72 hours- Final report to follow
03/09/24 09:42 Blood Culture - Preliminary
Blood/Venous No Growth in 24 hours- Final report to follow
03/06/24 17:00 Blood Culture - Preliminary
Blood/Venous Staphylococcus epidermidis
Additional testing on request
Gram Stain - Preliminary
03/06/24 17:00 Blood Culture - Preliminary
Blood/Venous Coagulase neg. staphylococcus
Gram Stain - Preliminary
Therapeutic Drug Monitoring
Random Vancomycin 10.7 ug/ml 03/11/24 06:53
--- NOTE | 2024-03-11 10:02 | W.PN.UPDATE ---
Update Note
Progress Note Update
Patient seen and evaluated by orthopedic surgery this morning on rounds.
Plan for left hip hemiarthroplasty for displaced femoral neck fracture with Dr. Bean on 03/12/2024, as long as medically cleared. Appreciate primary team and ID. Patient currently being treated for MRSA UTI. Initial blood cultures
suspected of being a contaminant per ID. Repeat blood cultures without growth thus far.
Plan:
- NWB LLE until post-op.
- NPO pMN Tuesday03/11/2024 for tentative OR Tuesday03/12/2024.
- Continue pain control per primary. Ice and elevation for pain and edema control.
- Please hold IV Heparin after 1800 03/11/2024. Discussed with Dr. Sebastian.
- Preoperative Ancef and irrigation on-call to OR.
- Hemoglobin this AM 11.1 Continue to monitor and trend. Type and Screen ordered this AM.
- Surgical and blood consent forms signed in patient's chart. Surgical site marked as the left hip.
- Orthopedic surgery will continue to follow along.
[2024-03-11 12:01] LABS: Glucose - Point of Care 245 mg/dl (70-99)
[2024-03-11] MEDS: VANCOCIN 200 IV ×2 (12:01→18:04)
[2024-03-11] MEDS: NOVOLOG FLEXPEN-LOW RESISTANCE 2 UNITS SC ×2 (12:05→18:03)
[2024-03-11 12:08] VITALS: BP 131/81
--- NOTE | 2024-03-11 14:25 | W.PN.HOSP.TC ---
Today's Communication/Plan
-
stop heparin tonight for surgery tomorrow
Assessment / Plan
Assessment / Plan
pt is a 69 year old male
Change in mental status secondary to toxic metabolic encephalopathy---resolved?--Head CT No CT evidence for acute intracranial hemorrhage or obstructive hydrocephalus--Treat UTI and metabolic disturbance and follow-up.
Sepsis likely from urinary tract infection/ bacteremia---MRSA UTI--blood cultures suspected of being a contaminant per ID (coag neg staph)--cont vanco--apprec ID
Left hip pain--acute left hip fracture--apprec ortho--for surgery Tuesday--IV heparin to stop tonight 03/11 at 6PM
Hypernatremia/acute kidney injury likely from hypovolemic and poor oral intake--cont with 1/4NSS at 80ml
hypokalemia--replete
History of severe dysphagia - related to strokes--Has been on pur�ed diet with thickened liquids in the residential--apprec speech
Type DM 2--Sliding scale--Accu-Chek every 6 hours as patient is n.p.o.
Essential hypertension -stable.
DVT prophylaxis--Heparin subcu
code status --DNR
Anticipated Discharge: > 48 hours
Subjective/Interval History
-
Date of Service: March 11, 2024
pt awake but still minimal interaction with me
Objective Data
-
Labs:
Laboratory Results
03/11/24
06:53
WBC 7.3
Hgb 11.1 L
Hct 34.4 L
Plt Count 139
APTT 79.3 H
Sodium 149 H
Potassium 3.6
Chloride 120 H
Carbon Dioxide 27
BUN 23 H
Creatinine 0.6 L
Glucose 277 H
Calcium 8.1 L
Vital Signs:
max temp for 24 hours
03/10/24
23:20
Temp 99.8 F
Vital Signs
Temp Pulse Resp BP Pulse Ox
98.6 F 80 18 131/81 98
03/11/24 12:08 03/11/24 12:08 03/11/24 03:36 03/11/24 12:08 03/11/24 12:08
I&O
03/10/24 03/11/24 03/12/24
06:59 06:59 06:59
Intake Total 650 / 650 2 / 2261
Balance 650 / 650 2261 / 2261
Review of Systems
-
Unable to obtain full review of systems at this time due to: Dementia (?) and Language Barrier (?)
Physical Exam
-
General: Appears Chronically Ill
HEENT: Normocephalic and Atraumatic
Respiratory: Clear to Auscultation; Negative Wheezes or Rhonchi
Cardiac: Regular Rhythm and S1/S2; Negative Murmur
GI: Soft, Nontender, Nondistended and Normal Bowel Sounds
Musculoskeletal: No Clubbing, No Cyanosis and No Edema
[2024-03-11 16:44] LABS: Glucose - Point of Care 225 mg/dl (70-99)
--- NOTE | 2024-03-11 17:00 | PTCARENOTE ---
Pt is not 'non-verbal'... Pt is Syriac speaking. Understands a bit of Tuvaluan. Language Line Ipad put in Pt room. RN Chiqui translated. Surgery and procedures explained in Syriac to Pt. Pt expressed understanding. Pt c/o mild pain at L Hip Fx site.
TT to Dr. Sebastian to request scheduled tylenol. Order rec'd and given (from micah gonzalez MD). Pt is for Hip Fx repair in OR tomorrow. Heparin gtt DC'd @ 1800 per order. Plan of care ongoing.
[2024-03-11] MEDS: TYLENOL 1000 MG PO (18:04)
[2024-03-11 21:38] LABS: Glucose - Point of Care 343 mg/dl (70-99)
[2024-03-11 23:18] VITALS: BP 136/76
[2024-03-12] VITALS (14 sets, daily range): BP systolic 123–171; BP diastolic 77–99; PULSE 83; O2SAT 97
[2024-03-12] MEDS: TYLENOL 1000 MG PO ×4 (00:18→17:40)
[2024-03-12] MEDS: SODIUM CHLORIDE 1009.625 MEQ IV ×2 (03:57→12:27)
[2024-03-12] MEDS: VANCOCIN 200 IV (05:17)
--- NOTE | 2024-03-12 06:30 | PTCARENOTE ---
Pt. was sent to [facility], report given to Shahriar, Ancef sent down with pt., vs stable, preop wipes done with gown and bed linen change.
--- NOTE | 2024-03-12 07:26 | PTOTSP ---
Patient NPO for OR today. New orders required to continue therapy with EDUCATION REP after surgery. Please place as able/appropriate. Thank you.
--- NOTE | 2024-03-12 07:34 | PHA.VAN.FU ---
Vancomycin Assessment / Plan
- Assessment
Renal Function: Stable
WBC's are: Stable
In the past 24 hrs, patient has been: Afebrile
Concomitant Antimicrobials: Cefazolin
- Monitoring Plan
No level(s) ordered at this time: Consider levels in next few days
- Follow Up
Pharmacy will continue to follow.
Vancomycin Follow UP
- -
Patient Age: 69
Patient Sex: Male
Vancomycin Day #: 7
Indication: Genito-Urinary Tract
Requesting Provider: Dr. Johns
Pertinent Antimicrobial Allergies:
NKDA
Height / Weight:
Height 5 ft 10 in
Actual Weight 68.5 kg
Pertinent Past Medical History: DM
- Vital Signs / Lab Results
Temp Pulse Resp BP Pulse Ox
97.6 F 79 16 137/95 97
03/12/24 03:43 03/12/24 03:43 03/12/24 03:43 03/12/24 03:43 03/12/24 03:43
Lab Results - Hematology
03/09/24 03/10/24 03/11/24
09:42 07:15 06:53
WBC 8.3 8.5 7.3
Lab Results - Chemistry
03/09/24 03/10/24 03/11/24
09:42 07:15 06:53
BUN 40 H 29 H 23 H
Creatinine 0.7 0.7 0.6 L
Estimated Creat Clear 98 98 114
Albumin 2.6 L
Microbiology Results
03/08/24 07:06 Blood Culture - Preliminary
Blood/Venous No Growth in 4 days- Final report to follow
03/09/24 09:42 Blood Culture - Preliminary
Blood/Venous No Growth in 48 hours- Final report to follow
Therapeutic Drug Monitoring
Random Vancomycin 10.7 ug/ml 03/11/24 06:53
[2024-03-12] MEDS: NOVOLOG FLEXPEN-LOW RESISTANCE SC (11:27)
[2024-03-12 11:28] LABS: Glucose - Point of Care 335 mg/dl (70-99)
--- NOTE | 2024-03-12 12:00 | PTCARENOTE ---
Rec'd Pt back from OR s/p L Hip arthroplasty. Pt is drowsy but rousable. Re-oriented to room with call vilchis in place.
[2024-03-12] MEDS: SODIUM CHLORIDE IV (12:27)
[2024-03-12] MEDS: NOVOLOG FLEXPEN-LOW RESISTANCE 5 UNITS SC (12:30)
--- NOTE | 2024-03-12 12:47 | W.PN.ID1 ---
Date of Service
Date of Service: March 12, 2024
Today's Communication
Transition to oral doxy
Assessment / Plan
Bacteremia with CoNS (3 of 4 bottles)
- contaminate
MRSA bacteriURIA / possible UTI
Left hip Fx
- s/p ORIF 03/12/2024
Hx CVA
HTN
Dyslipidemia
DM
Anxiety
Recommendations:
Transition abx to doxycycline 100 mg PO bid, for an additional 7 days.
Chief Complaint
-: Leukocytosis and Bacteremia
Vital Signs / Physical Exam
Vital Signs
Vital Signs
Temp Pulse Resp BP Pulse Ox
98.1 F 90 18 148/87 96
03/12/24 11:30 03/12/24 11:30 03/12/24 11:30 03/12/24 11:30 03/12/24 11:30
Physical Exam
Constitutional: No Acute Distress, Chronically Ill and Non-toxic
Cardiovascular: S1/S2; Negative S3/S4
Pulmonary: Non Labored
Gastrointestinal: Soft, Non Distended and Normal Bowel Sounds
Musculoskeletal: Other (left hip dressing in place)
Psychological: Calm
Objective Data
Lab Data
APTT 79.3 Sec (23.4-35.0) H 03/11/24 06:53
Estimated Creat Clear 114 ml/min 03/11/24 06:53
Lactic Acid 1.7 mmol/L (0.7-2.0) 03/06/24 17:00
Total Bilirubin 0.9 mg/dl (0.2-1.3) 03/10/24 07:15
AST 29 U/L (17-59) 03/10/24 07:15
ALT 34 U/L (0-50) 03/10/24 07:15
Alkaline Phosphatase 129 U/L (38-126) H 03/10/24 07:15
Most recent labs reviewed.
Micro Results:
03/09/24 09:42 Blood Culture - Preliminary
Blood/Venous No Growth in 72 hours- Final report to follow
03/08/24 07:06 Blood Culture - Preliminary
Blood/Venous No Growth in 4 days- Final report to follow
03/06/24 17:00 Blood Culture - Preliminary
Blood/Venous Staphylococcus epidermidis
Additional testing on request
Gram Stain - Preliminary
03/06/24 17:00 Blood Culture - Preliminary
Blood/Venous Coagulase neg. staphylococcus
Gram Stain - Preliminary
03/06/24 17:30 Urine Culture - Final
Urine Staph aureus MRSA
03/06/24 19:30 Influenza Types A & B (MARGOT) - Final
Nasal Swab Negative for Influenza A & B, NAAT
Negative results must be combined with clinical observations
and patient history.
Nucleic Acid Amplification test (NAAT)performed on the
[employer] platform.
[2024-03-12 13:20] LABS: Hematocrit 36.3 % (39.0-52.0); Hemoglobin 12.4 g/dL (13.0-18.0); Mean Corp Hgb Conc. 34.2 g/dL (33.0-37.0); Mean Corpuscular Hgb 30.1 pg (27.0-31.0); Mean Corpuscular Volume 88.1 fL (80.0-94.0); Mean Platelet Volume 12.8 fL (7.4-10.4); Platelet Count 140 10^3/uL (130-400); Red Blood Cell Count 4.12 10^6/uL (4.70-6.10); Red Cell Dist. Width 13.2 % (11.5-14.5); White Blood Cell Count 12.8 10^3/uL (4.8-10.8)
[2024-03-12 13:29] LABS: APTT 26.7 Sec (23.4-35.0); INR 1.08; PT 13.8 Sec (11.4-14.6)
--- NOTE | 2024-03-12 13:45 | W.PN.HOSP.TC ---
Today's Communication/Plan
-
pt will return to SNF in 1-2 days
Assessment / Plan
Assessment / Plan
pt is a 69 year old male
Change in mental status secondary to toxic metabolic encephalopathy (lethargy)--resolved--Head CT No CT evidence for acute intracranial hemorrhage or obstructive hydrocephalus--Treat UTI and metabolic disturbance and follow-up.
Sepsis likely from urinary tract infection/ bacteremia---MRSA UTI--blood cultures suspected of being a contaminant per ID (coag neg staph)--cont vanco--apprec ID
Left hip pain--acute left hip fracture--apprec ortho--s/p surgery Tuesday
Hypernatremia/acute kidney injury likely from hypovolemic and poor oral intake--cont with 1/4NSS at 80ml
hypokalemia--replete
History of severe dysphagia - related to strokes--Has been on pur�ed diet with thickened liquids in the senior living--apprec speech
Type DM 2--Sliding scale--Accu-Chek every 6 hours as patient is n.p.o.
Essential hypertension -stable.
DVT prophylaxis--Heparin subcu
code status --DNR
Anticipated Discharge: 24 - 48 hours
Subjective/Interval History
-
Date of Service: March 12, 2024
pt speaks FIJIAN
had surgery for left hip fracture
Objective Data
-
Labs:
Laboratory Results
03/12/24
13:07
WBC 12.8 H
Hgb 12.4 L
Hct 36.3 L
Plt Count 140
PT 13.8
INR 1.08
APTT 26.7
Sodium Pending
Potassium Pending
Chloride Pending
Carbon Dioxide Pending
BUN Pending
Creatinine Pending
Glucose Pending
Calcium Pending
Vital Signs:
max temp for 24 hours
03/12/24
11:30
Temp 98.1 F
Vital Signs
Temp Pulse Resp BP Pulse Ox
98.0 F 92 17 150/88 98
03/12/24 12:30 03/12/24 12:30 03/12/24 12:30 03/12/24 12:30 03/12/24 12:30
I&O
03/11/24 03/12/24 03/13/24
06:59 06:59 06:59
Intake Total 2261 100 / 100
Balance 2261 100 / 100
Review of Systems
-
Unable to obtain full review of systems at this time due to: Language Barrier
Physical Exam
-
General: Well Developed, Well Nourished and No Apparent Distress
HEENT: Normocephalic and Atraumatic
Respiratory: Clear to Auscultation; Negative Wheezes or Rhonchi
Cardiac: Regular Rhythm and S1/S2; Negative Murmur
GI: Soft, Nontender, Nondistended and Normal Bowel Sounds
Musculoskeletal: No Clubbing, No Cyanosis and No Edema
Neuro: Awake
--- NOTE | 2024-03-12 13:54 | CM ---
senior investment manager reviewed patient's chart and patient was admitted with a fractured left hip from [facility], patient is for possible OR today. senior investment manager spoke with Corazon in admissions at [facility] and patient will need Auth from [place]
[phone]
Dr Guerra [phone]
Plan; Patient to return to [facility] needs Auth.
[2024-03-12 14:20] LABS: Blood Urea Nitrogen 22 mg/dl (9-20); Calcium 7.9 mg/dl (8.4-10.2); Carbon Dioxide 28 mmol/L (22-30); Chloride 112 mmol/L (98-107); Estimated Creatinine Clearance 98 ml/min; Glucose 337 mg/dl (70-99); Magnesium 2.1 mg/dl (1.6-2.3); Potassium 4.4 mmol/L (3.5-5.1); Sodium 142 mmol/L (135-145); eGFR > 60.00
[2024-03-12 15:57] LABS: Glucose - Point of Care 379 mg/dl (70-99)
[2024-03-12] MEDS: ProAmatine PO (17:40)
[2024-03-12] MEDS: NOVOLOG FLEXPEN-MODERATE RESISTANCE 9 UNITS SC (17:41)
[2024-03-12] MEDS: NOVOLOG FLEXPEN 2 UNITS SC (17:41)
[2024-03-12] MEDS: LIPITOR 40 MG PO (17:42)
[2024-03-12] MEDS: LYRICA 75 MG PO (17:43)
[2024-03-12] MEDS: BACTROBAN 2% OINTMENT 1 APPLIC NASAL (20:30)
[2024-03-12] MEDS: HEPARIN 5000 UNITS SC (20:31)
[2024-03-12] MEDS: COLACE 100 MG PO (20:31)
[2024-03-12] MEDS: MELATONIN 8 MG PO (20:31)
[2024-03-12] MEDS: VIBRAMYCIN 100 MG PO (20:34)
[2024-03-12] MEDS: SENOKOT 17.2 MG PO (20:34)
[2024-03-12] MEDS: VITAMIN B1 100 MG PO (20:35)
[2024-03-12 21:27] LABS: Glucose - Point of Care 367 mg/dl (70-99)
[2024-03-12] MEDS: LANTUS 0.21 UNITS SC (21:39)
[2024-03-12] MEDS: TYLENOL PO (23:13)
[2024-03-13] VITALS (8 sets, daily range): BP systolic 84–127; BP diastolic 51–79; PULSE 89; O2SAT 92; BMI 21.7
[2024-03-13] MEDS: TYLENOL 1000 MG PO ×4 (05:21→23:18)
--- NOTE | 2024-03-13 07:19 | W.PN.ORTHO ---
Today's Communication / Plan
-
PT/OT
Hip precautions with abductor pillow while in bed
DVT prophylaxis per medicine
Antibiotics per ID
Skin clip removal 2 weeks postop
[facility] facility once medically stable
Assessment
.
Distal Motor Intact: Yes
Dressing:
Clean, dry and intact.
Plan
.
Surgery / Date: L hip hemiarthroplasty 03/12 [place]
DVT Prophylaxis: Heparin
Activity:
Out of bed.
PT/OT
Discharge Plan: SNF
Subjective
.
.:
Patient resting comfortably.
Vital Signs and Labs
.
Vital Signs and Labs:
Lab Results
03/12/24 13:07
Temp Pulse Resp BP Pulse Ox
97.8 F 84 16 127/74 97
03/13/24 03:35 03/13/24 03:35 03/13/24 03:35 03/13/24 03:35 03/13/24 03:35
PT 13.8 Sec (11.4-14.6) 03/12/24 13:07
INR 1.08 03/12/24 13:07
[2024-03-13 08:08] LABS: Hematocrit 31.4 % (39.0-52.0); Hemoglobin 10.5 g/dL (13.0-18.0)
[2024-03-13 08:30] LABS: Glucose - Point of Care 282 mg/dl (70-99)
[2024-03-13] MEDS: NOVOLOG FLEXPEN 2 UNITS SC ×3 (10:01→17:43)
[2024-03-13] MEDS: BACTROBAN 2% OINTMENT 1 APPLIC NASAL ×2 (10:01→20:03)
[2024-03-13] MEDS: NOVOLOG FLEXPEN-MODERATE RESISTANCE 5 UNITS SC (10:01)
[2024-03-13] MEDS: HEPARIN 5000 UNITS SC ×2 (10:02→20:01)
[2024-03-13] MEDS: VITAMIN B1 100 MG PO ×2 (10:02→20:01)
[2024-03-13] MEDS: VIBRAMYCIN 100 MG PO ×2 (10:03→20:01)
[2024-03-13] MEDS: SENOKOT 17.2 MG PO ×2 (10:03→20:01)
[2024-03-13] MEDS: COLACE 100 MG PO ×2 (10:03→20:01)
[2024-03-13] MEDS: FLEXERIL 5 MG PO (10:04)
[2024-03-13] MEDS: ProAmatine 5 MG PO ×2 (10:04→17:44)
[2024-03-13] MEDS: LYRICA 50 MG PO (10:05)
[2024-03-13] MEDS: VIBRAMYCIN PO (10:07)
[2024-03-13 12:26] LABS: Glucose - Point of Care 336 mg/dl (70-99)
[2024-03-13] MEDS: NOVOLOG FLEXPEN-MODERATE RESISTANCE 7 UNITS SC (12:28)
[2024-03-13] MEDS: DILAUDID 0.25 MG IV (12:33)
--- NOTE | 2024-03-13 13:16 | W.PN.ID1 ---
Date of Service
Date of Service: March 13, 2024
Today's Communication
Continue antibiotics.
Assessment / Plan
Bacteremia with CoNS (3 of 4 bottles)
- contaminate
MRSA bacteriURIA / possible UTI
Left hip Fx
- s/p ORIF 03/12/2024
Hx CVA
HTN
Dyslipidemia
DM
Anxiety
Recommendations:
Continue doxycycline 100 mg PO bid, for an additional 6 days.
Little more to offer from an Infectious Diseases standpoint.
Will see again at your request.
����������������������������������������������������������
Chief Complaint
-: Leukocytosis and Bacteremia
Subjective / Review of Systems
Review of Systems: No Fever
Vital Signs / Physical Exam
Vital Signs
Vital Signs
Temp Pulse Resp BP Pulse Ox
97.4 F 96 18 117/78 99
03/13/24 11:24 03/13/24 11:24 03/13/24 11:24 03/13/24 11:24 03/13/24 11:24
Physical Exam
Constitutional: Comfortable, Chronically Ill and Non-toxic
Eyes: Sclera Anicteric
Cardiovascular: S1/S2; Negative S3/S4
Pulmonary: Non Labored
Objective Data
Lab Data
Lab Results
03/13/24 07:22
03/12/24 13:07
PT 13.8 Sec (11.4-14.6) 03/12/24 13:07
INR 1.08 03/12/24 13:07
APTT 26.7 Sec (23.4-35.0) 03/12/24 13:07
Estimated Creat Clear 98 ml/min 03/12/24 13:07
Lactic Acid 1.7 mmol/L (0.7-2.0) 03/06/24 17:00
Total Bilirubin 0.9 mg/dl (0.2-1.3) 03/10/24 07:15
AST 29 U/L (17-59) 03/10/24 07:15
ALT 34 U/L (0-50) 03/10/24 07:15
Alkaline Phosphatase 129 U/L (38-126) H 03/10/24 07:15
Most recent labs reviewed.
Micro Results:
03/09/24 09:42 Blood Culture - Preliminary
Blood/Venous No Growth in 4 days- Final report to follow
03/08/24 07:06 Blood Culture - Final
Blood/Venous No Growth - Final Report
03/06/24 17:00 Blood Culture - Preliminary
Blood/Venous Staphylococcus epidermidis
Additional testing on request
Gram Stain - Preliminary
03/06/24 17:00 Blood Culture - Preliminary
Blood/Venous Coagulase neg. staphylococcus
Gram Stain - Preliminary
03/06/24 17:30 Urine Culture - Final
Urine Staph aureus MRSA
03/06/24 19:30 Influenza Types A & B (MARGOT) - Final
Nasal Swab Negative for Influenza A & B, NAAT
Negative results must be combined with clinical observations
and patient history.
Nucleic Acid Amplification test (NAAT)performed on the
[employer] platform.
--- NOTE | 2024-03-13 14:23 | W.PN.HOSP.TC ---
Today's Communication/Plan
-
anticipate d/c back to SNF in AM
Assessment / Plan
Assessment / Plan
pt is a 69 year old male
Change in mental status secondary to toxic metabolic encephalopathy (lethargy)--resolved--Head CT No CT evidence for acute intracranial hemorrhage or obstructive hydrocephalus--Treat UTI and metabolic disturbance and follow-up.
Sepsis likely from urinary tract infection/ bacteremia---MRSA UTI--blood cultures suspected of being a contaminant per ID (coag neg staph)--on vanco--apprec ID--cont doxycycline 100 mg BID through 03/19/24
Left hip pain--acute left hip fracture--apprec ortho--s/p surgery
Hypernatremia/acute kidney injury likely from hypovolemic and poor oral intake--cont with 1/4NSS at 80ml
hypokalemia--replete
History of severe dysphagia - related to strokes--Has been on pur�ed diet with thickened liquids in the intermediate--apprec speech
Type DM 2--Sliding scale--Accu-Chek every 6 hours as patient is n.p.o.
Essential hypertension -stable.
DVT prophylaxis--Heparin subcu
code status --DNR
Anticipated Discharge: Within 24 hours
Subjective/Interval History
-
Date of Service: March 13, 2024
unclear if pt in pain--nursing reports elevated HR
Objective Data
-
Labs:
Laboratory Results
03/13/24
07:22
Hgb 10.5 L
Hct 31.4 L
Vital Signs:
max temp for 24 hours
03/12/24
19:35
Temp 99.3 F
Vital Signs
Temp Pulse Resp BP Pulse Ox
97.4 F 96 18 117/78 99
03/13/24 11:24 03/13/24 11:24 03/13/24 11:24 03/13/24 11:24 03/13/24 11:24
I&O
03/12/24 03/13/24 03/14/24
06:59 06:59 06:59
Intake Total 2069 100 / 100
Balance 2069 100 / 100
Review of Systems
-
Unable to obtain full review of systems at this time due to: Language Barrier
Physical Exam
-
General: Appears Chronically Ill
HEENT: Normocephalic and Atraumatic; Negative Oxygen
Respiratory: Clear to Auscultation; Negative Wheezes or Rhonchi
Cardiac: Regular Rhythm, S1/S2 and Tachycardic; Negative Murmur
GI: Soft, Nontender, Nondistended and Normal Bowel Sounds
Musculoskeletal: No Clubbing, No Cyanosis and No Edema
[2024-03-13] MEDS: LOPRESSOR 5 MG IV (14:28)
--- NOTE | 2024-03-13 15:54 | PTCARENOTE ---
Pt noted to be tachy on tele monitor--- sustaining 120's-130's... TT to Dr. Sebastian... n/o lopressor 5 mg PRN. Given to Pt. HR reduced into 80's. Plan of care ongoing.
--- NOTE | 2024-03-13 15:57 | CM ---
Patient is for discharge back to [facility] tomorrow, patient does not have [facility] insurance, patient does not have Medicare, patient is ineligible for Medicaid, pillowcase cutter spoke with admissions at [facility] who are aware of above.
Plan; Patient to return to [facility] tomorrow.
[2024-03-13 17:33] LABS: Glucose - Point of Care 211 mg/dl (70-99)
[2024-03-13] MEDS: NOVOLOG FLEXPEN-MODERATE RESISTANCE 3 UNITS SC (17:42)
[2024-03-13] MEDS: LYRICA 75 MG PO (17:44)
[2024-03-13] MEDS: LIPITOR 40 MG PO (17:44)
[2024-03-13] MEDS: MELATONIN 8 MG PO (20:01)
[2024-03-13 21:32] LABS: Glucose - Point of Care 179 mg/dl (70-99)
[2024-03-13] MEDS: LANTUS 0.21 UNITS SC (22:05)
[2024-03-14] MEDS: DILAUDID 0.25 MG IV (01:22)
[2024-03-14 03:31] VITALS: BP 115/75
[2024-03-14] MEDS: TYLENOL 1000 MG PO ×2 (05:54→12:35)
[2024-03-14 07:00] VITALS: BP 100/46
[2024-03-14 07:37] LABS: Hematocrit 32.4 % (39.0-52.0); Hemoglobin 10.7 g/dL (13.0-18.0)
[2024-03-14 08:29] LABS: Glucose - Point of Care 136 mg/dl (70-99)
[2024-03-14] MEDS: NOVOLOG FLEXPEN 2 UNITS SC ×2 (09:11→12:33)
[2024-03-14] MEDS: NOVOLOG FLEXPEN-MODERATE RESISTANCE SC (09:12)
[2024-03-14] MEDS: VITAMIN B1 100 MG PO (09:16)
[2024-03-14] MEDS: SENOKOT 17.2 MG PO (09:17)
[2024-03-14] MEDS: ProAmatine 5 MG PO (09:17)
[2024-03-14] MEDS: LYRICA 50 MG PO (09:19)
[2024-03-14] MEDS: VIBRAMYCIN 100 MG PO (09:19)
[2024-03-14] MEDS: COLACE 100 MG PO (09:19)
[2024-03-14] MEDS: PLAVIX 75 MG PO (09:20)
[2024-03-14] MEDS: FLEXERIL 5 MG PO (09:20)
[2024-03-14] MEDS: HEPARIN 5000 UNITS SC (09:21)
[2024-03-14 11:00] VITALS: BP 111/68
[2024-03-14 11:08] VITALS: BP 112/70
[2024-03-14 11:19] LABS: Glucose - Point of Care 189 mg/dl (70-99)
--- NOTE | 2024-03-14 11:32 | W.PN.UPDATE ---
Update Note
Progress Note Update
Mr. Negron is POD3 following his left hip hemiarthroplasty performed by Dr. Bean. He is resting comfortably in bed this morning.
Directed exam of the left lower extremity reveals Aquacel dressing clean, dry and intact. Abductor pillow in place. Thigh soft and compressible. Calf soft and nontender. Patient able to wiggle toes, plantar and dorsiflex ankle. Sensation intact to
light touch distally.
PT/OT. Hip precautions with abductor pillow while in bed
DVT prophylaxis per medicine.
Antibiotics per ID.
Skin clip removal 2 weeks postop.
senior living facility once medically stable.
[2024-03-14] MEDS: NOVOLOG FLEXPEN-MODERATE RESISTANCE 1 UNITS SC (12:33)
--- NOTE | 2024-03-14 12:56 | W.PN.HOSP.TC ---
Today's Communication/Plan
-
d/c to SNF
Assessment / Plan
Assessment / Plan
pt is a 69 year old male
Change in mental status secondary to toxic metabolic encephalopathy (lethargy)--resolved--Head CT No CT evidence for acute intracranial hemorrhage or obstructive hydrocephalus--Treat UTI
Sepsis likely from urinary tract infection/ bacteremia---MRSA UTI--blood cultures suspected of being a contaminant per ID (coag neg staph)--on vanco--apprec ID--cont doxycycline 100 mg BID through 03/19/24
Left hip pain--acute left hip fracture--apprec ortho--s/p surgery
Hypernatremia/acute kidney injury likely from hypovolemic and poor oral intake--cont with 1/4NSS at 80ml
hypokalemia--replete
History of severe dysphagia - related to strokes--Has been on pur�ed diet with thickened liquids in the [facility]--apprec speech
Type DM 2--Sliding scale--Accu-Chek every 6 hours as patient is n.p.o.
Essential hypertension -stable.
DVT prophylaxis--Heparin subcu
code status --DNR
Anticipated Discharge: Today
Subjective/Interval History
-
Date of Service: March 14, 2024
pt ready for d/c
Objective Data
-
Labs:
Laboratory Results
03/14/24
07:26
Hgb 10.7 L
Hct 32.4 L
Vital Signs:
max temp for 24 hours
03/13/24
23:30
Temp 98.3 F
Vital Signs
Temp Pulse Resp BP Pulse Ox
98.1 F 106 18 112/70 96
03/14/24 11:08 03/14/24 11:08 03/14/24 11:08 03/14/24 11:08 03/14/24 11:08
I&O
03/13/24 03/14/24 03/15/24
06:59 06:59 06:59
Intake Total 740 / 740
Balance 740 / 740
Review of Systems
-
All other systems: Reviewed and negative
Physical Exam
-
General: Well Developed, Well Nourished and No Apparent Distress
HEENT: Normocephalic and Atraumatic
Respiratory: Clear to Auscultation; Negative Wheezes or Rhonchi
Cardiac: Regular Rhythm and S1/S2; Negative Murmur
GI: Soft, Nontender, Nondistended and Normal Bowel Sounds
Musculoskeletal: No Clubbing, No Cyanosis and No Edema
Psych: Calm
--- NOTE | 2024-03-14 14:07 | CM ---
off track betting manager reviewed patient's chart and patient has been cleared for discharge today, patient to return to [facility]. 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
[facility]
Report [phone]
[2024-03-14 15:20] VITALS: BP 99/53
--- NOTE | 2024-03-15 07:39 | W.DCSUMMARY ---
Discharge Summary
Discharge Data
Date of Admission: 03/06/24
Date of Discharge: 03/14/24
-
Pending Results: No
Hospital Course
Primary care physician : Jesus Guerra
Principal Discharge diagnosis : Toxic metabolic encephalopathy due to methicillin resistant Staphylococcus aureus urinary tract infection with sepsis and bacteremia, acute left hip fracture
Chronic Discharge diagnosis : Hyponatremia, hypokalemia, history of severe dysphagia related to previous strokes, type 2 diabetes mellitus, essential hypertension
Hospital Course : Patient was a 69-year-old male with a past medical history of hypertension, hyperlipidemia, diabetes, recent stroke, alcohol abuse who presented to the emergency department from cardiology office for a change in mental status.
Patient was extremely lethargic. Patient cannot participate in history as he is essentially unresponsive. It should be noted, that the patient also speaks Chinese. Workup found him to have a positive UA. Patient received Vanco and Zosyn in ER.
Patient received fluids in the ER. Patient was admitted.
Problem #1: Toxic metabolic encephalopathy due to methicillin-resistant staphylococcal aureus urinary tract infection. Patient was found on admission to have sepsis and bacteremia. He was seen in consultation by infectious disease. Blood cultures
obtained on March 06 showed Staphylococcus epidermidis which is a contaminant. Urine culture however did show methicillin resistant Staph aureus. Infectious disease was consulted. Patient was continued on IV vancomycin. He was then converted to
doxycycline at discharge to complete 6 more days. Patient mental status did improve.
Problem #2: Acute left hip fracture. Patient was found to have left hip pain on full range of motion. X-ray was done which showed acute left hip fracture. Orthopedics was consulted. Patient was medically optimized prior to surgery. Patient
eventually did undergo left hip hemiarthroplasty on March 12, 2024. Hemoglobin was stable postoperatively. Physical therapy and Occupational Therapy were consulted. Patient can return to his snf with follow-up with orthopedics in 2 weeks.
Problem #3: All other medical issues. These include Hyponatremia, hypokalemia, history of severe dysphagia related to previous strokes, type 2 diabetes mellitus, essential hypertension. These medical issues were stable during his hospitalization
or corrected with IV fluids during his hospitalization. Medications were continued as able.
Patient is stable to return to his snf at this time. If there are any questions regarding this dictation or his hospital stay, please not hesitate to call. Our office number is [phone].
Important imaging findings :
HIP X-RAY IMPRESSION: Acute angulated probably comminuted left femoral neck fracture as described above. New
Mild bony demineralization. Stable
Procedure findings :
DATE OF OPERATION: 03/12/2024
SURGEON: Rekha Bean DO
DICTATED BY: Rekha Bean DO
PREOPERATIVE DIAGNOSIS: Displaced left femoral neck fracture.
POSTOPERATIVE DIAGNOSIS: Displaced left femoral neck fracture.
PROCEDURE: Left hip hemiarthroplasty.
BOOM BOSS: Anle Nelson PA-C
ANESTHESIA: General.
ESTIMATED BLOOD LOSS: Minimal.
SPECIMENS: None.
DRAINS: None.
COMPLICATIONS: None.
Discharge Plan
-
Patient Disposition: Correction/SNF
Discharge Diagnosis/Procedures: Toxic metabolic encephalopathy likely due to sepsis from methicillin-resistant Staphylococcus aureus urinary tract infection, acute left hip fracture status post left hemiarthroplasty, hyponatremia with acute kidney
injury, hypokalemia, history of severe dysphagia, type 2 diabetes mellitus, essential hypertension
Condition: Fair
Diet: As tolerated and Diabetic, Carb Controlled
Activity: As tolerated
Additional Activity: As per orthopedics
Driving Restrictions: No driving
Bathing Restrictions: None
Referrals:
Jesus Guerra, DO [Family Provider] - in less than 1 week
Rekha Bean DO [Active] - in two weeks
Prescriptions:
New
doxycycline hyclate 100 mg Capsule
100 mg PO Q12 Qty: 12 0RF
Rx Instructions:
take for 6 more days
acetaminophen [Tylenol Extra Strength] 500 mg Tablet
1,000 mg PO Q6 Qty: 0 0RF
tamsulosin 0.4 mg Capsule
0.4 mg PO DAILYPRN PRN (Reason: bladder scan volume > 400 mL) Qty: 0 0RF
sennosides-docusate sodium [Stool Softener-Stimulant Laxat] 8.6-50 mg Tablet
1 tab PO BIDPRN PRN (Reason: constipation) Qty: 0 0RF
docusate sodium 100 mg Capsule
100 mg PO BID Qty: 0 0RF
insulin aspart U-100 100 unit/mL (3 mL) Insulin Pen
2 unit SC AC Qty: 0 0RF
Continued
midodrine 5 mg Tablet
5 mg PO BID
Rx Instructions:
hold for sbp>140
magnesium hydroxide [Milk of Magnesia] 400 mg/5 mL Suspension
30 ml PO DAILY PRN (Reason: if no bm x3 days)
nystatin 100,000 unit/gram Powder
1 applic TOPICAL BID
Rx Instructions:
apply to rash on groin area
bisacodyl 10 mg suppository
[address] DAILY PRN (Reason: if mom ineffective)
atorvastatin 40 mg tablet
40 mg PO QPM
thiamine HCl (vitamin B1) 100 mg tablet
100 mg PO BID
clopidogrel 75 mg tablet
75 mg PO DAILY
Fleet Enema 19-7 gram/118 mL Enema
[address] DAILY PRN (Reason: if suppository is ineffective)
mupirocin 2 % Ointment
1 applic TOPICAL DAILY
Patient Comments:
03/06/2024: apply L foot great toe
furosemide 20 mg Tablet
20 mg PO DAILY
cyclobenzaprine 5 mg Tablet
5 mg PO DAILY
melatonin 1 mg Tablet
8 mg PO DAILY@1999
pregabalin [Lyrica] 50 mg capsule
50 mg PO DAILY
pregabalin [Lyrica] 75 mg capsule
75 mg PO QPM
insulin glargine [Lantus Solostar U-100 Insulin] 100 unit/mL (3 mL) insulin pen
21 unit SC HS
Discontinued
acetaminophen 325 mg Tablet
650 mg PO Q6H PRN (Reason: mild pain/temp>100.4)
lidocaine [Aspercreme (lidocaine)] 4 % adhesive patch,medicated
1 patch topical DAILY
Patient Comments:
03/06/2024: left hip
insulin aspart U-100 [Novolog FlexPen U-100 Insulin] 100 unit/mL (3 mL) insulin pen
1 - 6 sliding scale dose SC AC
Patient Comments:
03/06/2024: if 150-200= 1; 201-250=2; 251-300= 3; 301-340= 4; 341-380= 5; 381-420= 6
insulin aspart U-100 [Novolog FlexPen U-100 Insulin] 100 unit/mL (3 mL) Insulin Pen
13 unit SC BIDWMEAL
insulin aspart U-100 [Novolog FlexPen U-100 Insulin] 100 unit/mL (3 mL) Insulin Pen
14 sliding scale dose SC DAILY
Discharge Orders:
Discharge Patient (As Directed); Ordered 03/14/24
Ordered By: Annie Sebastian
Discharge Date and Time
Discharge Date/Time: 03/14/24 16:10
Print Language: CYMRAES
== END 2024-03-14 16:10 | DRG 853 ==
LOC: 4 WEST ACU 20:45
PROVIDERS: Internal Medicine; Registered Nurse; ADMITTING PHYSICIAN Hospitalist; ATTENDING PHYSICIAN Internal Medicine; CONSULT PHYSICIAN Internal Medicine Infectious Disease; CONSULT PHYSICIAN Orthopaedic Surgery; EMERGENCY PHYSICIAN Emergency Medicine; FAMILY PHYSICIAN Internal Medicine
PROC: 0SRS0J9 Replacement of Left Hip Joint, Femoral Surface with Synthetic Substitute, Cemented, Open Approach (ICD-10-PCS; 2024-03-12)
DX: A41.9 Sepsis, unspecified organism (principal); G92.8 Other toxic encephalopathy; S72.002A Fracture of unspecified part of neck of left femur, initial encounter for closed fracture; I82.412 Acute embolism and thrombosis of left femoral vein; E87.0 Hyperosmolality and hypernatremia; N17.9 Acute kidney failure, unspecified; N39.0 Urinary tract infection, site not specified; E87.1 Hypo-osmolality and hyponatremia; Z66 Do not resuscitate; R65.20 Severe sepsis without septic shock; F17.200 Nicotine dependence, unspecified, uncomplicated; Z11.52 Encounter for screening for COVID-19; E86.1 Hypovolemia; E11.9 Type 2 diabetes mellitus without complications; I10 Essential (primary) hypertension; Z51.5 Encounter for palliative care; E87.6 Hypokalemia; F41.9 Anxiety disorder, unspecified; Y99.9 Unspecified external cause status
CPT/HCPCS: 70450; 71045; 73502; 80048; 80053; 80202; 80306; 81003; 81015; 82077; 82550; 82962; 83036; 83605; 83735; 85014; 85018; 85025; 85027; 85610; 85730; 86850; 86900; 86901; 87040; 87086; 87147; 87150; 87186; 87205; 87502; 87811; 92526; 92610; 93005; 93971; 96361; 96374; 97163; 97530; 97535; 99291; C1713; C1776

== ENCOUNTER 2024-03-17 20:14 | Inpatient (IN) | payer OTHER, SELFPAY ==
[2024-03-17] VITALS (26 sets, daily range): BP systolic 90–139; BP diastolic 67–110; BMI 23.6
[2024-03-17 15:27] LABS: Glucose - Point of Care 281 mg/dl (70-99)
--- NOTE | 2024-03-17 15:35 | EDRN ---
1535 nasal trumpet placed
[address] Ortiz, HR 148, 93%
1541 20 mg etomidate pushed then 100 mg succs pushed by ESSENCE Neal
[address] Ortiz, + color change on CO2 monitor, b/l breath sounds heard, ETT 7.5, 24 cm at lip
1548 portable xray at bedside
[2024-03-17] MEDS: DIPRIVAN 100 IV ×2 (15:55→20:10)
--- NOTE | 2024-03-17 15:56 | ED.GENMED ---
History of Present Illness
General
Chief Complaint: Weakness
Source: records, family, ambulance crew and snf
Exam Limitations: clinical condition
Time Seen by Provider: 03/17/24 15:20
Nursing documentation reviewed up to this point in time: agreed with
Travel History
Have you had any contact with someone who has COVID-19?: Unable to Answer
Do you have any symptoms of coronavirus? Fever > 100 degrees, chills, cough, shortness of breath, sore throat, loss of taste or smell, muscle aches, or headache?: Unable to Answer
History of Present Illness
History of Present Illness:
69-year-old male with a past medical history of stroke, hypertension, hyperlipidemia, diabetes, PUD, alcohol use who presents to the emergency department from snf ([facility]) for evaluation of change in mental status. He presents
essentially unresponsive, hypoxic and tachypneic. Patient cannot participate in history. Per EMS they received a call for unresponsive patient�on their arrival patient was found to be tachycardic, tachypneic, hypoxic and minimally responsive. He
was transported to the emergency room for assessment. Paperwork provided to EMS listed patient is comfort measures only, DNR/DNI however I spoke with his family directly on the phone and they said that this was recently rescinded and that he wishes
for full aggressive care�I explained that that would likely mean he will require intubation here in the emergency room and they indicated that patient wishes to proceed with aggressive measures including intubation if needed. I reviewed patient's
chart�he was notably admitted 03/06 until 03/14 for confusion related to urinary tract infection also having acute left hip fracture that was repaired on 03/12/2024. Spoke with [facility] staff directly: just arrived back to [facility] a few days ago. Since returning
back not eating, increasing hypoxia. Has been on 2L NC. Outpatient CXR was normal yesterday. Today decreasing level of arousal which prompted call to EMS. He has been on doxycycline for MRSA UTI at snf for the past few days.
Past History
Past History
ED Past Medical History: CVA (2017 and 2022), HTN, Hypercholesterolemia, NIDDM, Psychiatric (Generalized anxiety disorder) and Other (Orthostatic hypotension, episode encephalopathy January 2023)
ED Past Surgical History: Orthopedic
Patient has exhibited threatening behavior?: No
PSI?: No
Social History
Tobacco: Smoker
Alcohol: Other (unclear from October 2022)
Drug: None
Personal:
Living: with family
Employment: Employed ([employer])
Family History
Family History: Other (reviewed and non-contributory)
Review of Systems
Review of Systems
Unable to obtain full review of systems at this time due to: due to acuity
All Other Systems: Not applicable
Phy Exam
Physical Exam
Physical Exam:
General: Lying in bed unresponsive�winces to vigorous sternal rub but no verbal response only occasional grunt or groaning- GCS 6 (E1 M4 V2)
Head: Normocephalic, atraumatic
Eyes: Conjunctiva normal, pupils 4 mm and reactive to light bilaterally
Throat: Somewhat dry mucous membranes
Neck: Trachea midline, supple without meningismus
Lungs: Faint scattered rhonchi but no focal rales or wheezing appreciated; patient is in respiratory distress with tachypnea and hypoxia with a maximum oxygen saturation of 87% on 100% nonrebreather mask
Heart: Tachycardia with ostensibly regular rhythm, no murmurs, gallops, or rubs
Abd: Soft, non distended, no mass appreciated
Neuro: GCS 6 as above
Extremities: No edema in extremities, equal pulses in all extremities
Scores
Heart Failure Risk
Heart Failure Risk Score: Not Applicable
Heart Score for Chest Pain Patients
STEMI patient?: Not applicable
Withdrawal Assessment of Alcohol
Withdrawal Assessment Completed?: Not applicable
Course
Orders/Labs/Results
Orders:
Orders
03/17/24 15:18
Etomidate [Amidate] 40 mg .ROUTE .STK-MED ONE
Succinylcholine Chloride [Succinylcholine] 200 mg .ROUTE .STK-MED ONE
03/17/24 15:32
EKG [Electrocardiogram (*1)] Urgent
Reason for Study: Tachycardia
EKG- Treatment ONCE
03/17/24 15:41
Propofol 1,000,000 Mcg/100 ml [Diprivan] 1,000,000 mcg in 100 ml .ROUTE .STK-MED
03/17/24 15:43
Chest X-ray Portable [CR Chest Portable - 1 View] Urgent
Comment:
Reason For Exam: intubation
Reason Study Needs to be Portable: Patient Unstable
03/17/24 15:51
CT Chest Pe Study Urgent
Comment:
Reason For Exam: hypoxia, tachycardia
03/17/24 15:52
ABG [Arterial Blood Gas] Urgent
%Oxygen/Room Air: 70
Complete Blood Count/With Diff Urgent
Comprehensive Metabolic Panel Urgent
Lactic Acid Urgent
Triglycerides Routine
Comment: baseline levels with propofol infusion
Acetaminophen [Tylenol/Feverall] 650 mg RECTAL NOW STA
Propofol 1,000,000 Mcg/100 ml [Diprivan] 1,000,000 mcg in 100 ml IV NOW
Indication:: Light Sedation
Begin Infusion:: Now
Goal:: RASS 0 to -2
Maximum dose in mcg/kg/min:: 50
Initial dose based on RASS:: Yes
If RASS is:: +1 or pt hemodynamically unstable (SBP < 90mmHg), initiate at 10 mcg/kg/min
If RASS is:: +2, initiate at 20 mcg/kg/min
If RASS is:: greater than or equal to +3, initiate at 30 mcg/kg/min
Titration Instructions:: Titrate by 5-10 mcg/kg/min every 5 minutes until RASS 0 to -2 achieved.
Taper Instructions:: If RASS is at or below goal for 4 consecutive hours decrease infusion by
Taper Instructions:: 5-10 mcg/kg/min every 2 hours to off.
Over-sedation Instructions:: If CPOT 0-2 (at goal) AND RASS -3 to -5 (below goal) decrease sedative by
Over-sedation Instructions:: 50% first. If pain score remains at goal and RASS remains below goal in
Over-sedation Instructions:: 1 hour, decrease opioid infusion by 50%.
Notify provider:: immediately if patient exhibits signs/symptoms of propofol-related
Notify provider:: infusion syndrome.
Additional Instructions:: Patient MUST be mechanically ventilated and MUST receive analgesia.
03/17/24 15:54
Piperacillin/Tazo 3.375 Gram [Zosyn] 3.375 gram in 50 ml IV NOW
03/17/24 15:55
0.9% Sodium Chloride 1000 ml [Nss] 1,000 ml IV BOLUS
03/17/24 15:58
Propofol [Diprivan] 20 ml .ROUTE .[facility]
03/17/24 16:08
Cabrera Placement- Treatment ONCE
Reason for insertion: I&O's Critical Care
GI tube insertion- Treatment ONCE
Catheter- Indwelling As Directed
Reason for insertion: I&O's Critical Care
Assess insertion reason daily.Remove if no longer applicable: Yes
03/17/24 16:22
COVID-19 Antigen Urgent
Source: Nasal Swab
Urinalysis Reflex To Culture Urgent
Date Specimen was Collected: 03/17/24
Time Specimen was Collected: 15:55
Blood Culture Q30M
DOM Source: Blood/Venous
Specimen Description:
Influenza A+B Rapid Molecular Urgent
DOM Source: Nasal Swab
Specimen Description:
03/17/24 16:30
Blood Culture Q30M
DOM Source: Blood/Venous
Specimen Description:
03/17/24 16:32
Vancomycin [Vancocin] 1,500 mg 0.9% Sodium Chloride [Nss] 20 ml 0.9% Sodium Chloride 250 ml [Nss] 250 ml IV NOW
03/17/24 17:44
CT Head W/o Iv Contrast Urgent
Comment:
Reason For Exam: change in mentation
03/17/24 18:35
PTT Urgent
Comment: Obtain baseline before beginning heparin infusion if not already collected
Heparin 5,500 units IV NOW STA
Pharmacy Request to Place See Dose Instructions PO NOW STA
Discontinue all Active Warfarin orders?: Yes
Nursing to Place Non Medication Order As Directed
Physician Order: PTT 6 hours after initial start of Heparin infusion
03/17/24 18:45
Heparin 46169 Units/250 ml 25,000 units in 250 ml IV PER PROTOCOL
Weight to be used for heparin protocol in kilograms (kg):: 68.2
Protocol:: DVT/PE
PTT Goal Range to be used:: PTT 73 to 111 seconds
Order type:: Initial
INITIAL Infusion Dose (UNITS/KG/hr) & then follow protocol:: 18 units/kg/hr
Infusion Dose in UNITS/hr & then follow protocol (UNITS/hr):: 1,200
INFUSION RATE in mL/hr & then follow protocol (mL/hr):: 12
For DVT/PE algorithm, re-bolus for low PTT?: Yes
PTT less than or equal to 64 seconds:: Re-bolus 80 units/kg (max 10,000units). Increase by 300 units/hr
(+ 3mL/hr)
PTT 64.1 to 72.9 seconds:: Re-bolus 40 units/kg (max 5,000 units). Increase by 100 units/hr
(+ 1mL/hr)
PTT 73 to 111 seconds:: Target Range. No change in rate.
PTT 111.1 to 130.9 seconds:: Decrease rate by 100 units/hr (- 1 mL/hr)
PTT 131 to 199.9 seconds:: HOLD for 1 hr. Then decrease by 200 units/hr (- 2mL/hr)
PTT greater than or equal to 200 seconds:: HOLD for 2 hrs & Notify Provider. Then decrease by 300 units/hr
(- 3mL/hr)
Lab follow-up:: Each change, PTT q6h until 2 consecutive are therapeutic. Then
PTT daily.
03/17/24 19:[address] See Dose Instructions IV DIRECTED
Abnormal Lab Results
03/17/24 03/17/24 03/17/24
15:26 15:52 16:22
WBC 15.2 H 10^3/uL
(4.8-10.8)
RBC 3.92 L 10^6/uL
(4.70-6.10)
Hgb 11.6 L g/dL
(13.0-18.0)
Hct 36.2 L %
(39.0-52.0)
MCHC 32.0 L g/dL
(33.0-37.0)
RDW 14.6 H %
(11.5-14.5)
MPV 12.1 H fL
(7.4-10.4)
Abs Immat Gran (auto) 0.1 H 10^3/uL
(0-0.05)
Absolute Neuts (auto) 14.0 H 10^3/uL
(1.4-6.5)
Absolute Lymphs (auto) 0.5 L 10^3/uL
(1.2-3.4)
Immature Gran % 0.6 H %
(0-0.5)
Neutrophils % 92.0 H %
(42.2-75.2)
Lymphocytes % 3.4 L %
(20.5-51.1)
pO2 150 H mmHg
(83-108)
ABG O2 Sat (Measured) 98.7 H %
(94-98)
Chloride 111 H mmol/L
(98-107)
BUN 32 H mg/dl
(9-20)
Glucose 234 H mg/dl
(70-99)
Lactic Acid 2.8 H mmol/L
(0.7-2.0)
Alkaline Phosphatase 156 H U/L
(38-126)
Albumin 3.4 L g/dl
(3.5-5.0)
Triglycerides 151 H mg/dl
(10-149)
Urine Ketones 2+ A
(Negative)
Urine Bilirubin 1+ A
(Negative)
POC Glucose 281 H mg/dl
(70-99)
03/17/24 15:52
03/17/24 15:52
Vital Signs
Initial and Last Documented VS:
Initial Vital Signs
Temp Pulse Resp BP Pulse Ox
39.4 C H 147 24 139/79 87
03/17/24 15:22 03/17/24 15:22 03/17/24 15:22 03/17/24 15:22 03/17/24 15:22
Last Documented Vital Signs
Temp Pulse Resp BP Pulse Ox
39.4 C H 122 14 95/67 100
03/17/24 15:22 03/17/24 17:45 03/17/24 17:45 03/17/24 17:45 03/17/24 17:57
Procedures
Intubations
Procedure completed by: Juan Ortiz MD
Method of Intubation: curved blade
Tube size (cm): 7.5
Placement confirmed by: auscutation, CXR, capnography and direct visualization
Breath sounds after intubation: equal
Intubation complications: no complications
MDM/Problems Addressed
Differential Diagnosis Includes:
Sepsis from UTI, pneumonia, pulmonary embolism, pulmonary edema, pneumothorax
MDM/Problems Addressed:
69-year-old male presents from sn[facility] after recent admission to this hospital for UTI and left hip fracture requiring surgery; he presents to us unresponsive, hypoxic, febrile. He was initially listed comfort measures only but per family they
wish for aggressive care including intubation if needed. He is severely tachycardic to the 140s, tachypneic to 30, hypoxic in the 60s on room air only improving up to 87% on 100% nonrebreather mask. Fortunately his blood pressure is normal. His GCS
is 6 on arrival. His Accu-Chek on arrival is 281. Decision made to proceed with intubation given significant respiratory distress and hypoxia despite maximal noninvasive measures and his severely altered mental status making him a poor candidate
for BiPAP as he would be unable to protect his airway. He was intubated as documented procedure note sedated with propofol. Given rectal Tylenol and IV fluids. Stat pleural chest x-ray confirmed ET tube placement and interestingly shows no acute
pathology to account for his significant hypoxia�with his recent surgery and significant tachycardia we will send for CTA to rule out pulmonary embolism. Usual labs sent off including a CBC and a CMP, lactate, blood cultures. Will catheterized
urinalysis. Check an ABG. Send viral swabs. Cover with broad-spectrum antibiotics upfront. ICU admission pending initial evaluation and resuscitation.
Initial labs reviewed: CBC shows leukocytosis to 15.2. Stable anemia. CMP shows hyperglycemia and no other clinically significant abnormalities. Lactate slightly elevated at 2.8�IV fluids in progress. Urinalysis appears to be negative for
infection, urine culture sent. Radiology over read of chest x-ray was questionable for left lower lobe pneumonia retrocardiac�awaiting results of CTA to rule out PE as well as to better evaluate for pneumonia. Covered with broad-spectrum
antibiotics. Admit pending CTA.
CTA positive for pneumonia also positive for small pulmonary embolism but no signs of heart strain. Will plan to treat with heparin given his significant change mental status will CT head in an abundance of caution to rule out any signs of
hemorrhage.
CT head negative for any acute hemorrhage. Started on heparin infusion. Cover with antibiotics as above. Case discussed with hospitalist for admission. Discussed with family to update.
Chronic conditions affecting care:
Hypertension, hyperlipidemia, diabetes, prior stroke
*Radiology
Radiology exam reviewed: preliminary read by ED provider and radiology read reviewed
*Pulse Oximetry
Patient hypoxic: yes
*EKG
Interpreted by ED Provider?: Yes
Heart Rate: 155
Rate: tachycardiac
Rhythm: sinus
[place]: normal axis
Interval: normal interval
QRS Pattern: normal QRS
Ischemia: non-specific ST changes
*Critical Care Note
Total Time (30-74mins, 75-104mins- exclusive of procedures): 41
comment:
Critical care statement: A total of 41 minutes of critical care time was provided for this patient. This includes management of unstable vital signs, evaluation of the patient at bedside, frequent reassessment, discussion with
consultants/hospitalist, and review of pertinent medical records. This time was separate from time utilized to perform any aforementioned documented procedures
Data Reviewed
Review of Other/Old Records Reveals: Labs, Records and Discharge Summary
Source: records, family, ambulance crew and snf
Patient Management
Discussion with other providers: Hospitalist (Discussed with hospitalist)
Escalation/DeEscalation of care consider admission/obs:
Admission indicated
ED Attending Note
-
Portions of this chart may have been created with voice recognition software.� Occasional wrong word or��sound alike� substitutions may have occurred due to the inherent limitations of voice recognition software.
Discharge Plan
Departure
Patient Disposition: Admit
Date of Disposition: 03/17/24
Time of Disposition: 17:44
Admit to doctor: Akila
Presentation/result/management discussed w/ accepting MD/DO: Hospitalist
Discharge Problem:
Acute hypoxemic respiratory failure, Sepsis, Encephalopathy, Pneumonia, Pulmonary embolism
Prescriptions:
No Action
midodrine 5 mg Tablet
5 mg PO BID
Rx Instructions:
hold for sbp>140
magnesium hydroxide [Milk of Magnesia] 400 mg/5 mL Suspension
30 ml PO DAILY PRN (Reason: if no bm x3 days)
nystatin 100,000 unit/gram Powder
1 applic TOPICAL BID
Rx Instructions:
apply to rash on groin area
bisacodyl 10 mg suppository
10 mg OR DAILY PRN (Reason: if mom ineffective)
atorvastatin 40 mg tablet
40 mg PO QPM
thiamine HCl (vitamin B1) 100 mg tablet
100 mg PO BID
clopidogrel 75 mg tablet
75 mg PO DAILY
Fleet Enema 19-7 gram/118 mL Enema
118 ml OR DAILY PRN (Reason: if suppository is ineffective)
mupirocin 2 % Ointment
1 applic TOPICAL DAILY
Patient Comments:
03/06/2024: apply L foot great toe
furosemide 20 mg Tablet
20 mg PO DAILY
cyclobenzaprine 5 mg Tablet
5 mg PO DAILY
melatonin 1 mg Tablet
8 mg PO DAILY@1999
pregabalin [Lyrica] 50 mg capsule
50 mg PO DAILY
pregabalin [Lyrica] 75 mg capsule
75 mg PO QPM
insulin glargine [Lantus Solostar U-100 Insulin] 100 unit/mL (3 mL) insulin pen
21 unit SC HS
doxycycline hyclate 100 mg Capsule
100 mg PO Q12 Qty: 12 0RF
Rx Instructions:
take for 6 more days
acetaminophen [Tylenol Extra Strength] 500 mg Tablet
1,000 mg PO Q6 Qty: 0 0RF
tamsulosin 0.4 mg Capsule
0.4 mg PO DAILYPRN PRN (Reason: bladder scan volume > 400 mL) Qty: 0 0RF
sennosides-docusate sodium [Stool Softener-Stimulant Laxat] 8.6-50 mg Tablet
1 tab PO BIDPRN PRN (Reason: constipation) Qty: 0 0RF
docusate sodium 100 mg Capsule
100 mg PO BID Qty: 0 0RF
insulin aspart U-100 100 unit/mL (3 mL) Insulin Pen
2 unit SC AC Qty: 0 0RF
Referrals:
Jesus Guerra, DO [Family Provider] -
Interventions
Interventions:
*Risk Screen - Suicide Last Done: 03/17/24 15:22
*General Assessment Last Done: 03/17/24 15:22
*Neglect/Abuse Screening Last Done: 03/17/24 15:22
*ED COVID-19 Vaccine History Last Done: 03/17/24 15:22
ED- Cardiac Assessment Last Done: 03/17/24 17:18
ED- Neurological Assessment Last Done: 03/17/24 17:18
ED- Pulmonary Assessment Last Done: 03/17/24 17:18
Discharge Date and Time
Print Language: KAZAKH
[2024-03-17 16:34] LABS: % Basophils 0.1 % (0-2); % Eosinophils 0.1 % (0-6); % Immature Granulocytes 0.6 % (0-0.5); % Lymphocytes 3.4 % (20.5-51.1); % Monocytes 3.8 % (1.7-9.3); Absolute Immature Granulocytes 0.1 10^3/uL (0-0.05); Absolute Lymphocytes 0.5 10^3/uL (1.2-3.4); Absolute Monocytes 0.6 10^3/uL (0.1-0.6); Hematocrit 36.2 % (39.0-52.0); Hemoglobin 11.6 g/dL (13.0-18.0); Mean Corpuscular Hgb 29.6 pg (27.0-31.0); Mean Corpuscular Volume 92.3 fL (80.0-94.0); Mean Platelet Volume 12.1 fL (7.4-10.4); Nucleated Red Blood Cells % 0 % (-); Platelet Count 257 10^3/uL (130-400); Red Blood Cell Count 3.92 10^6/uL (4.70-6.10); Red Cell Dist. Width 14.6 % (11.5-14.5); White Blood Cell Count 15.2 10^3/uL (4.8-10.8)
[2024-03-17] MEDS: NSS 1000 IV ×2 (16:34→22:16)
[2024-03-17] MEDS: ZOSYN 50 IV ×2 (16:34→22:16)
[2024-03-17] MEDS: TYLENOL/FEVERALL 650 MG RECTAL (16:35)
[2024-03-17 16:41] LABS: B.E. 0.5 mmol/L; HCO3 24.3 mmol/L (21-28); O2 Saturation % 98.7 % (94-98); PCO2 35 mmHg (35-48); PO2 150 mmHg (83-108); pH 7.45 (7.35-7.45)
[2024-03-17 16:45] LABS: Lactic Acid 2.8 mmol/L (0.7-2.0)
[2024-03-17 16:53] LABS: Urine Albumin Trace (Neg - Trace); Urine Bilirubin 1+ (Negative); Urine Character Clear (Clear); Urine Color Yellow; Urine Glucose Negative (Negative); Urine Ketone 2+ (Negative); Urine Leukocyte Negative (Negative); Urine Nitrite Negative (Negative); Urine Occult Blood Negative (Negative); Urine Specific Gravity 1.025 (<1.030); Urine Urobilinogen Negative (Neg - 1+)
[2024-03-17 16:54] LABS: COVID-19 Antigen Negative (Negative)
[2024-03-17 17:03] LABS: ALT (SGPT) 25 U/L (0-50); AST (SGOT) 31 U/L (17-59); Albumin 3.4 g/dl (3.5-5.0); Alkaline Phosphatase 156 U/L (38-126); Blood Urea Nitrogen 32 mg/dl (9-20); Calcium 8.4 mg/dl (8.4-10.2); Carbon Dioxide 27 mmol/L (22-30); Chloride 111 mmol/L (98-107); Estimated Creatinine Clearance 73 ml/min; Glucose 234 mg/dl (70-99); Potassium 4.8 mmol/L (3.5-5.1); Sodium 145 mmol/L (135-145); Total Bilirubin 1.2 mg/dl (0.2-1.3); Total Protein 6.9 g/dl (6.3-8.2); Triglycerides 151 mg/dl (10-149); eGFR > 60.00
[2024-03-17] MEDS: VANCOCIN 300 ML IV (17:25)
[2024-03-17] MEDS: VANCOCIN 300 MG IV (17:25)
[2024-03-17] MEDS: HEPARIN 25000 UNITS/250 ML IV (19:25)
[2024-03-17] MEDS: HEPARIN 5500 UNITS IV (19:26)
--- NOTE | 2024-03-17 19:27 | HPS.HSE ---
Family Physician
-
Family Physician: Jesus Guerra, DO
Chief Complaint
-
AMS, SOB
History of Present Illness
The patient is a 69 yo male with PMH significant for stroke, hypertension, hyperlipidemia, diabetes, PUD, alcohol use recent admission here 03/06 to 03/14 due to Toxic metabolic encephalopathy due to methicillin resistant Staphylococcus aureus urinary
tract infection with sepsis and bacteremia, acute left hip fracture, who presents to the ED due to unresponsive and SOB. He is currently intubated cannot provide history. Per ED note 'Per EMS they received a call for unresponsive patient�on their
arrival patient was found to be tachycardic, tachypneic, hypoxic and minimally responsive. He was transported to the emergency room for assessment. Paperwork provided to EMS listed patient is comfort measures only, DNR/DNI however I spoke with his
family directly on the phone and they said that this was recently rescinded and that he wishes for full aggressive care�I explained that that would likely mean he will require intubation here in the emergency room and they indicated that patient
wishes to proceed with aggressive measures including intubation if needed.'
Pt required intubation. Of note per NH, patient was not taking orals with increasing oyxgen requirements, and has been on 2L NC outpatient. OP CXR normal yesterday. He was on Doxy for MRSA UTI and NH for the past several days.
Medical History
Past Medical History
Past Medical History: Reports Other
Additional Past Medical History:
Cardioembolic stroke
Hypertension
Tobacco abuse disorder
Hyperlipidemia
Type 2 diabetes
Cerebral fraction
Past Surgical History: Reports None
Social History
Unable to obtain full social history at this time due to: Acuity
Family History
Family History: Not pertinent
Allergies / Home Medications
Allergies reflects when Allergies were last updated in [employer]
Home Medications with original date entered in [employer]
Allergy/Medication List:
Allergies
Allergy/AdvReac Type Severity Reaction Status Date / Time
No Known Allergies Allergy Verified 03/17/24 17:30
Home Medications
atorvastatin 40 mg tablet 40 mg PO QPM High Cholesterol 06/05/23
bisacodyl 10 mg rectal suppository 10 mg VA DAILY PRN if mom ineffective 06/05/23
clopidogrel 75 mg tablet 75 mg PO DAILY Blood Clot Prevention/Tx 06/05/23
magnesium hydroxide 400 mg/5 mL oral suspension (Milk of Magnesia) 30 ml PO DAILY PRN if no bm x3 days 06/05/23
midodrine 5 mg tablet 5 mg PO BID Blood Pressure 06/05/23
nystatin 100,000 unit/gram topical powder 1 applic topical BID Infection 06/05/23
thiamine HCl (vitamin B1) 100 mg tablet 100 mg PO BID Supplement 06/05/23
cyclobenzaprine 5 mg tablet 5 mg PO DAILY 03/06/24
furosemide 20 mg tablet 20 mg PO DAILY 03/06/24
insulin glargine 100 unit/mL (3 mL) subcutaneous pen (Lantus Solostar U-100 Insulin) 21 unit SC HS Diabetes 03/06/24
melatonin 1 mg tablet 8 mg PO DAILY@199903/06/24
mupirocin 2 % topical ointment 1 applic topical DAILY 03/06/24
pregabalin 50 mg capsule (Lyrica) 50 mg PO DAILY 03/06/24
pregabalin 75 mg capsule (Lyrica) 75 mg PO QPM 03/06/24
sodium phosphates 19 gram-7 gram/118 mL enema (Fleet Enema) 118 ml VA DAILY PRN if suppository is ineffective 03/06/24
acetaminophen 500 mg tablet (Tylenol Extra Strength) 1,000 mg (2 x 500 mg) PO Q6 #0 tabs 03/14/24
docusate sodium 100 mg capsule 100 mg PO BID #0 caps 03/14/24
doxycycline hyclate 100 mg capsule 100 mg PO Q12 #12 caps 03/14/24
insulin aspart U-100 100 unit/mL (3 mL) subcutaneous pen 2 unit (0.02 mL) SC AC #0 mL 03/14/24
sennosides 8.6 mg-docusate sodium 50 mg tablet (Stool Softener-Stimulant Laxative) 1 tab PO BIDPRN PRN constipation #0 tabs 03/14/24
tamsulosin 0.4 mg capsule 0.4 mg PO DAILYPRN PRN bladder scan volume > 400 mL #0 caps 03/14/24
Review of Systems
-
Unable to obtain full review of systems at this time due to: Patient Intubation
Physical Exam
Vital Signs
Vital Signs
Temp Pulse Resp BP Pulse Ox
102.9 F H 106 14 104/72 100
03/17/24 15:22 03/17/24 19:00 03/17/24 19:00 03/17/24 19:00 03/17/24 17:57
Physical Exam
General: Appears Chronically Ill and Other (intubated , sedated)
Respiratory: Rhonchi
Cardiac: S1/S2
GI: Soft and Non Distended
Musculoskeletal: No Clubbing, No Cyanosis and No Edema
Skin: Warm and Dry
Neuro: Sedated
Psych: Other (sedated)
Laboratory Results
-
03/17/24 15:52
03/17/24 15:52
Laboratory Results
pH 7.45 (7.35-7.45) 03/17/24 15:52
pCO2 35 mmHg (35-48) 03/17/24 15:52
pO2 150 mmHg (83-108) H 03/17/24 15:52
HCO3 24.3 mmol/L (21-28) 03/17/24 15:52
Lactic Acid 2.8 mmol/L (0.7-2.0) H 03/17/24 15:52
Total Bilirubin 1.2 mg/dl (0.2-1.3) 03/17/24 15:52
AST 31 U/L (17-59) 03/17/24 15:52
ALT 25 U/L (0-50) 03/17/24 15:52
Alkaline Phosphatase 156 U/L (38-126) H 03/17/24 15:52
Impression/Plan
-
The patient is a 69 yo male with PMH significant for stroke, hypertension, hyperlipidemia, diabetes, PUD, alcohol use recent admission here 03/06 to 03/14 due to Toxic metabolic encephalopathy due to methicillin resistant Staphylococcus aureus urinary
tract infection with sepsis and bacteremia, acute left hip fracture, who presents to the ED due to unresponsive and SOB. He is currently intubated cannot provide history. Per ED note 'Per EMS they received a call for unresponsive patient�on their
arrival patient was found to be tachycardic, tachypneic, hypoxic and minimally responsive. He was transported to the emergency room for assessment. Paperwork provided to EMS listed patient is comfort measures only, DNR/DNI however I spoke with his
family directly on the phone and they said that this was recently rescinded and that he wishes for full aggressive care'
Pt required intubation. Of note per NH, patient was not taking orals with increasing oyxgen requirements, and has been on 2L NC outpatient. OP CXR normal yesterday. He was on Doxy for MRSA UTI and NH for the past several days.
Recent admission: Blood cultures obtained on March 06 showed Staphylococcus epidermidis which is a contaminant. Urine culture however did show methicillin resistant Staph aureus. Infectious disease was consulted. Patient was continued on IV
vancomycin. He was then converted to doxycycline at discharge to complete 6 more days. Patient mental status did improve prior to recent DC to NH.
#Acute hypoxic respiratory failure requiring intubation in the ED, likely multifactorial due to PE and HCAP
- CT chest- rounded pleural-based focus of consolidation in the posterior right lower lobe on image #69 which measures approximately 4.4 x 2.5 cm.. There are 2 small similar findings posterior and medially in the right lower lobe on image 45 and 47.
These findings are likely developing pneumonia in right lower lobe as well.
-ICU admission
-cont respiratory care, Duo-Nebs prn
-vent settings
-blood and respiratory cultures pending
-ETT
-cont sedation w Propofol for now, and wean as per protocol
-Cont IV Vanco and IV Zosyn, awaiting cx
-serial LA
-IVF NS
#Small PE tiny thrombus in a segmental vessels supplying the right upper lobe
-cont Heparin gtt, monitor coags
#Acute toxic metabolic encephalopathy likey due to HCAP
-CT head without acute findings
#Recent DC to NH due to methicillin-resistant staphylococcal aureus urinary tract infection, on outpatient Doxy
#Recent Acute left hip fracture. s/p left hip hemiarthroplasty on March 12, 2024. Stable, wound c/d/i at this time
- Plan at recent discharge was assisted with follow-up with orthopedics in 2 weeks.
#history of severe dysphagia related to previous strokes,
#type 2 diabetes mellitus,
#essential hypertension.
#Severe dysphagia related to previous strokes - chronic b/l thalamic infarcts
DVT proph-hep gtt
Pt is Full Code
70 minutes of critical care time is spent on the care of the patient
[2024-03-17 20:37] LABS: Triglycerides 62 mg/dl (10-149)
--- NOTE | 2024-03-17 22:07 | PHA.VAN.IN ---
Assessment
- Assessment
Renal Function: Appears similar to baseline
Concomitant Antimicrobials: piperacillin/tazobactam
AUC Dosing Plan
- Dosing Variables
Dosing Weight (kg): 68
Dosing CrCl (ml/min): 73
Vd coefficient (L/kg): 0.7
- Empiric Dosing
Initial / Loading Dose: 1500mg - 03/17 17:25
Maintenance Regimen: Vanc 750mg Q12H starting 03/18 0600
Estimated AUC (mcg*h/mL): 501
Estimated Peak (mcg*h/mL): 29.1
Estimated Trough (mcg/ml): 14.2
Estimated Half Life (H): 10.7
- Monitoring
No levels ordered at this time: consider levels in next few days
MRSA Screen: Ordered per protocol
follow renal function - low threshold to change to dose by level if SCR and/or BUN increase
Pharmacokinetics Vancomycin I
- -
Patient Age: 69
Patient Sex: Male
Vancomycin Day #: 1
Indication: Pulmonary/Respiratory
Requesting Provider: Dr. Parson
Pertinent Antimicrobial Allergies:
NKDA
Height / Weight:
Height 5 ft 7 in
Actual Weight 68.2 kg
Pertinent Past Medical History: DM 2
- Vital Signs / Lab Results
Temp Pulse Resp BP Pulse Ox
100.3 F 107 14 117/78 99
03/17/24 21:53 03/17/24 21:33 03/17/24 21:33 03/17/24 21:33 03/17/24 21:33
Lab Results - Hematology
03/17/24
15:52
WBC 15.2 H
Lab Results - Chemistry
03/17/24
15:52
BUN 32 H
Creatinine 0.9
Estimated Creat Clear 73
Albumin 3.4 L
04/27/24
15:52
Lactic Acid 2.8 H
Lab Results - Urine
03/17/24
16:22
Urine Nitrite (Reflex) Negative
Leukocyte Esterase Rfl Negative
Microbiology Results
03/17/24 16:22 Influenza Types A & B (MARGOT) - Final
Nasal Swab Negative for Influenza A & B, NAAT
Negative results must be combined with clinical observations
and patient history.
Nucleic Acid Amplification test (NAAT)performed on the
[email or web address] platform.
[2024-03-17] MEDS: SUBLIMAZE 50 MCG IV ×2 (22:12→23:14)
[2024-03-17 23:08] LABS: Lactic Acid 2.7 mmol/L (0.7-2.0)
[2024-03-17 23:14] LABS: Triglycerides 100 mg/dl (10-149)
[2024-03-17] MEDS: LANTUS 0.209999999999999992 UNITS SC (23:15)
[2024-03-18] VITALS (31 sets, daily range): BP systolic 90–138; BP diastolic 61–101; BMI 24.0
[2024-03-18] MEDS: SUBLIMAZE 50 MCG IV ×5 (00:26→23:44)
--- NOTE | 2024-03-18 00:56 | PTCARENOTE ---
Addendum entered by Paula Wiggins RN 03/18/24 02:20:
Awaiting foot pumps from [facility]
Original Note:
Received patient from ED in bed intubated and sedated. Titrating propofol gtt per order, fentanyl boluses for light sedation per order. Heparin gtt ongoing, PTT at 0125. NSS gtt at 80 mls/hour. Pupils 2 mm, sluggish. RASS -3, responds to tactile
stimulation. Sinus tach, 100s. BP stable, 90s-100s/60s-70s. Rectal probe in, temp 99.5. Weak palpable pedal pulses, palpable radial pulses bilaterally. +1 upper extremity edema. 7.5 ETT, 24 at the lip, on the right side. 14/600/40%+5. Lung sounds
clear, saturating 94%. OG tube, verified placement via auscultation, set to low intermittent suction draining brown liquid. Cabrera in place for critical I&O's draining yellow urine. No BM. Aquacell on left hip with old minimal drainage. Adductor
pillow in between legs. DTIs on heels and sacrum present on admission, pressure injuries on left great toe and pinky toe as well. Foams applied, wound consulted. Foot pumps on, repositioned, CHG bath done, mouth care done. Right forearm #18, right
antecubital #20, and left forearm #18 PIV patent, WNL. Labs sent, urine sent. Hourly rounding and patient safety checks ongoing.
[2024-03-18] MEDS: NOVOLOG FLEXPEN-MODERATE RESISTANCE 5 UNITS SC ×2 (01:57→06:03)
[2024-03-18 02:00] LABS: Glucose - Point of Care 275 mg/dl (70-99)
[2024-03-18 02:21] LABS: Lactic Acid 2.1 mmol/L (0.7-2.0)
[2024-03-18 02:23] LABS: APTT > 200 Sec (23.4-35.0)
--- NOTE | 2024-03-18 02:27 | PTCARENOTE ---
Patient off propofol since 0200, HEAD INSULATION BOARD SAW OPERATOR aware, monitoring closely. PTT >200, holding heparin gtt for 2 hours per protocol. Repositioned.
[2024-03-18] MEDS: ZOSYN 50 IV ×4 (04:54→21:54)
--- NOTE | 2024-03-18 05:01 | PTCARENOTE ---
Patient assessment unchanged from previous. Minimally responsive, not following commands, not making eye contact or purposeful movements, SKILLED NURSING PROFESSIONAL aware. Labs sent, mouth care done, OG tube irrigated, will care done, repositioned.
[2024-03-18 05:26] LABS: Venous Blood Gas B.E. 2.2 mmol/L (-4 to +4); Venous Blood Gas HCO3 26.5 mmol/L (22-27); Venous Blood Gas O2 Sat % 97.3 %; Venous Blood Gas pCO2 39 mmHg (35-48); Venous Blood Gas pH 7.44 (7.32-7.43); Venous Blood Gas pO2 95 mmHg (30-50)
[2024-03-18 05:27] LABS: % Basophils 0.1 % (0-2); % Eosinophils 0.1 % (0-6); % Immature Granulocytes 0.4 % (0-0.5); % Lymphocytes 7.2 % (20.5-51.1); % Monocytes 4.9 % (1.7-9.3); % Neutrophils 87.3 % (42.2-75.2); Absolute Immature Granulocytes 0.1 10^3/uL (0-0.05); Absolute Monocytes 0.7 10^3/uL (0.1-0.6); Absolute Neutrophils 11.8 10^3/uL (1.4-6.5); Hemoglobin 9.9 g/dL (13.0-18.0); Mean Corp Hgb Conc. 31.9 g/dL (33.0-37.0); Mean Corpuscular Volume 93.9 fL (80.0-94.0); Mean Platelet Volume 12.7 fL (7.4-10.4); Nucleated Red Blood Cells % 0 % (-); Platelet Count 195 10^3/uL (130-400); Red Cell Dist. Width 14.6 % (11.5-14.5); White Blood Cell Count 13.6 10^3/uL (4.8-10.8)
[2024-03-18 05:44] LABS: Ammonia < 9 umol/L (9-30); INR 1.34; PT 16.4 Sec (11.4-14.6)
[2024-03-18 06:01] LABS: Glucose - Point of Care 258 mg/dl (70-99)
[2024-03-18] MEDS: VANCOCIN 150 IV ×2 (06:03→17:40)
[2024-03-18 06:04] LABS: ALT (SGPT) 21 U/L (0-50); AST (SGOT) 31 U/L (17-59); Albumin 2.3 g/dl (3.5-5.0); Alkaline Phosphatase 110 U/L (38-126); Blood Urea Nitrogen 32 mg/dl (9-20); Calcium 7.5 mg/dl (8.4-10.2); Carbon Dioxide 27 mmol/L (22-30); Chloride 114 mmol/L (98-107); Creatine Phosphokinase 38 U/L (55-170); Estimated Creatinine Clearance 83 ml/min; Glucose 229 mg/dl (70-99); Potassium 3.6 mmol/L (3.5-5.1); Sodium 146 mmol/L (135-145); Total Bilirubin 0.8 mg/dl (0.2-1.3); Total Protein 5.2 g/dl (6.3-8.2); eGFR > 60.00
--- NOTE | 2024-03-18 08:00 | PTCARENOTE ---
Received pt @ change of shift. Pt. intubated/restrained w b/l soft limb/4 rails-see flow sheet. Sedation off overnight. CPOT 0. Pt. opens eyes/blinks spontaneously, does not track. Pupils 3mm, sluggish b/l. Does not follow commands. Non purposeful
movements @ times. ST on monitor. SpO2 98% on vent settings AC14/600/.40/+5. ETT #7.5, 24 @ lip on R side. Suctioned for small-mod amt of thick white/davis secretions. Coarse breath sounds @ L base. OG in place to LIS w mod amt of brown output;
flushed per orders. Cabrera in place draining basil urine. #18 L wrist w IVF infusing;#20 R FA w heparin gtt; #18 R wrist patent; all dressings c/d/i. Pt. repositioned per protocol. Hygiene care provided. Safe environment maintained.
--- NOTE | 2024-03-18 08:18 | CON.INTV ---
Consultation
Consultation Request
Date/Time Consultation Requested: 03/17/2024 - 2151
Date/Time Consultation Performed: 03/18/2024 - 809
Requesting Provider: CIRILO Horton
Performing Provider: Dr. Marino
Reason for Consultation: Hypoxia/On ventilator
Medical History
-
Chief Complaint: Reduced level of consciousness
History of Present Illness:
69-year-old male with a past medical history of CVA with expressive aphasia/dysarthria, DM type II, former tobacco use disorder, hypertension and hyperlipidemia who presents with altered mental status. Patient was transferred from [facility] via
EMS and had been declining over the last 3 weeks. In the ER, patient febrile to 102.9 �F, tachycardic to 147, tachypneic to 24 breaths/min, BP 139/79 and SpO2 87% on nonrebreather. Labs showed leukocytosis to 15.2, anemia 11.6, hyperglycemia to
234, elevated lactate of 2.8, 2+ urine ketones with no signs of UTI, and COVID antigen negative. Blood cultures were collected. Initial CXR showed suspected LLL pneumonia versus atelectasis. Unfortunately patient's respiratory distress worsened
and he was intubated in the ER. CTA of the chest performed showing a left lower lobe + RLL pneumonia with a small RUL-segmental PE with no evidence of RV strain. He was given antibiotics in the ER with vancomycin/Zosyn, started on heparin drip,
given 1L of NS 0.9%, and started on propofol for sedation. Patient admitted to the ICU for further care, and critical care services consulted for additional management/recommendations.
Of note patient was recently hospitalized here from 03/06or due to AMS likely due to TME from MRSA UTI. He also had an acute left hip fracture and underwent left hip hemiarthroplasty on 03/12/2024. Additional issues that were addressed
were hyponatremia, hypokalemia, severe dysphagia given his history of prior strokes and history of hypertension. He was transferred to fpc/SNF in stable condition and completed another 6-day course of antibiotics (doxycycline).
When I saw the patient this morning, he was awakening to my voice but still not following commands (which is his baseline given his history of CVA with expressive/receptive aphasia, as per documentation and per report from bedside RN). He is
currently on AC�VC at 16/600/40%/5, breathing at 16 breaths/min, with PIP: 30 cmH2O and VTe of 583mL. Current heart rate is 102, BP 121/80 and SpO2 98%.
PMHx: Hypertension, hyperlipidemia, former tobacco use disorder, history of embolic CVA with expressive aphasia/dysarthria, DM type II, history of alcohol abuse, anxiety/depression, impaired vision, stress incontinence
PSHx: Left hip hemiarthroplasty (03/12/2024), right shoulder surgery, right carpal tunnel surgery
Past Medical History
Past Medical History: Other (Above as per HPI)
Past Surgical History: Other (Above as per HPI)
Social History
Tobacco: Former Smoker
Alcohol: None
Drug: None
Family History
Family History: Other (Father & mother: Tuberculosis)
Allergies / Home Medications
Allergies
Allergy/AdvReac Type Severity Reaction Status Date / Time
No Known Allergies Allergy Verified 03/17/24 17:30
Home Medications
�Medication �Instructions �Recorded �Confirmed �Last Taken �Type
atorvastatin 40 mg tablet 40 mg PO QPM High Cholesterol 06/05/23 03/17/24 Unknown History
bisacodyl 10 mg rectal suppository 10 mg NJ DAILY PRN if mom 06/05/23 03/17/24 Unknown History
ineffective
clopidogrel 75 mg tablet 75 mg PO DAILY Blood Clot 06/05/23 03/17/24 Unknown History
Prevention/Tx
magnesium hydroxide 400 mg/5 mL 30 ml PO DAILY PRN if no bm x3 days 06/05/23 03/17/24 Unknown History
oral suspension (Milk of Magnesia)
midodrine 5 mg tablet 5 mg PO BID Blood Pressure 06/05/23 03/17/24 Unknown History
nystatin 100,000 unit/gram topical 1 applic topical BID Infection 06/05/23 03/17/24 Unknown History
powder
thiamine HCl (vitamin B1) 100 mg 100 mg PO BID Supplement 06/05/23 03/17/24 Unknown History
tablet
cyclobenzaprine 5 mg tablet 5 mg PO DAILY 03/06/24 03/17/24 Unknown History
furosemide 20 mg tablet 20 mg PO DAILY 03/06/24 03/17/24 Unknown History
insulin glargine 100 unit/mL (3 21 unit SC HS Diabetes 03/06/24 03/17/24 Unknown History
mL) subcutaneous pen (Lantus
Solostar U-100 Insulin)
melatonin 1 mg tablet 8 mg PO DAILY@199903/06/24 03/17/24 Unknown History
mupirocin 2 % topical ointment 1 applic topical DAILY 03/06/24 03/17/24 Unknown History
pregabalin 50 mg capsule (Lyrica) 50 mg PO DAILY 03/06/24 03/17/24 Unknown History
pregabalin 75 mg capsule (Lyrica) 75 mg PO QPM 03/06/24 03/17/24 Unknown History
sodium phosphates 19 gram-7 118 ml NJ DAILY PRN if suppository 03/06/24 03/17/24 Unknown History
gram/118 mL enema (Fleet Enema) is ineffective
acetaminophen 500 mg tablet 1,000 mg (2 x 500 mg) PO Q6 #0 tabs 03/14/24 03/17/24 Unknown Rx
(Tylenol Extra Strength)
docusate sodium 100 mg capsule 100 mg PO BID #0 caps 03/14/24 03/17/24 Unknown Rx
doxycycline hyclate 100 mg capsule 100 mg PO Q12 #12 caps 03/14/24 03/17/24 Unknown Rx
insulin aspart U-100 100 unit/mL 2 unit (0.02 mL) SC AC #0 mL 03/14/24 03/17/24 Unknown Rx
(3 mL) subcutaneous pen
sennosides 8.6 mg-docusate sodium 1 tab PO BIDPRN PRN constipation 03/14/24 03/17/24 Unknown Rx
50 mg tablet (Stool #0 tabs
Softener-Stimulant Laxative)
tamsulosin 0.4 mg capsule 0.4 mg PO DAILYPRN PRN bladder 03/14/24 03/17/24 Unknown Rx
scan volume > 400 mL #0 caps
Review of Systems
-
Unable to Obtain full review of systems at this time due to: Acuity and Patient Intubation
Vitals / Labs / Diagnostic Testing
Vital Signs
Temp Pulse Resp BP Pulse Ox
99.2 F 103 14 102/62 100
03/18/24 07:06 03/18/24 08:45 03/18/24 08:45 03/18/24 08:15 03/18/24 08:45
Lab Data
03/18/24 04:44
03/18/24 04:44
Laboratory Results
03/17/24 03/17/24 03/18/24
15:52 18:40 01:49
PT
INR
APTT 29.0 > 200 H*
pH 7.45
pCO2 35
pO2 150 H
HCO3 24.3
O2 Delivery Level
03/18/24
04:44
PT 16.4 H
INR 1.34
APTT
pH
pCO2
pO2
HCO3
O2 Delivery Level
Microbiology
03/17/24 22:44 Nose Nasal Screen MRSA (PCR) - Final
MRSA not detected - performed by PCR methodology.
03/17/24 23:55 Urine Legionella Urinary Antigen - Final
Negative for Legionella pneumophila Serogroup 1 antigen.
A negative result does not rule out the possiblity of
Legionella infection due to other serogroups or species of
Legionella. Clinical correlation is recommended.
03/17/24 16:22 Nasal Swab Influenza Types A & B (MARGOT) - Final
Negative for Influenza A & B, NAAT
Negative results must be combined with clinical observations
and patient history.
Nucleic Acid Amplification test (NAAT)performed on the
[employer] platform.
Diagnostic Testing:
Physical Exam
-
HEENT: Normocephalic and Anicteric
Cardiovascular: S1/S2, Peripheral Edema (Negative) and Other (Tachycardic)
Respiratory: Wheeze (Negative), Rhonchi (bilaterally), Accessory Resp Muscle Use (Negative) and Other (ETT in place; mechanical breath sounds heard bilaterally)
GI: Soft, Non Distended and Non Tender
Neurology: Tremors (negative) and Other (Awakens to verbal and tactile stimuli but not following commands)
Skin: Warm and Dry
General: Comfortable, Fever (Negative) and Chills (Negative)
Assessment
-
Assessment: 69-year-old male with a past medical history of CVA with expressive aphasia/dysarthria, DM type II, former tobacco use disorder, hypertension and hyperlipidemia who presents with altered mental status. Patient was transferred from
[facility] via EMS and had been declining over the last 3 weeks. In the ER, patient febrile to 102.9 �F, tachycardic to 147, tachypneic to 24 breaths/min, BP 139/79 and SpO2 87% on nonrebreather. Labs showed leukocytosis to 15.2, anemia 11.6,
hyperglycemia to 234, elevated lactate of 2.8, 2+ urine ketones with no signs of UTI, and COVID antigen negative. Blood cultures were collected. Initial CXR showed suspected LLL pneumonia versus atelectasis. Unfortunately patient's respiratory
distress worsened and he was intubated in the ER. CTA of the chest performed showing a left lower lobe + RLL pneumonia with a small RUL-segmental PE with no evidence of RV strain. He was given antibiotics in the ER with vancomycin/Zosyn, started
on heparin drip, given 1L of NS 0.9%, and started on propofol for sedation. Patient admitted to the ICU for further care, and critical care services consulted for additional management/recommendations.
Chronic conditions [employer]: Hypertension, hyperlipidemia, former tobacco use disorder, history of embolic CVA with expressive aphasia/dysarthria, DM type II, history of alcohol abuse, anxiety/depression, impaired vision, stress incontinence, Hx of
recent MRSA UTI
Impression:
#Acute respiratory failure with hypoxia on mechanical ventilation (intubated 03-17-2024 in ER)
#Multifocal pneumonia/HAP
#LLL atelectasis with mucous plugging - likely secondary to prolonged AMS prior to admission with aspiration and severe LLL pneumonia
#Acute submassive pulmonary embolism without RV strain
#Hx of LLE DVT Dx on 03/08/2024
#Lactic acidosis
#Hyperglycemia
#Phimosis
#Chronic anemia (Hb baseline 12-13.5)
#Hx of CVA with residual expressive aphasia and dysarthria
Plan:
- Continue mechanical ventilation with daily SAT/SBT if clinically appropriate
- Titrate FiO2 and PEEP to maintain SpO2 >90-94%, while keeping plateau pressure <30
- Daily blood gas with vent adjustments as needed
- Start chest PT and start Duonebs and mucomyst in effort to improve LLL atelectasis. If no improvement, then will need bronchoscopy before extubation
- Continue Abx - Zosyn; vanco DC'd given negative MRSA swab; I would favor giving 7-10 days total of ABx
- Follow up blood Cx and respiratory Cx
- IVF but careful not to cause volume overload - I will place a stop date to avoid this
- Continue with systemic anticoagulation with heparin drip � eventual NOAC as per patient's insurance (case management can assist with this)
- Trend lactate levels until <2mmol/L
- Maintain MAP>65
- Pt has acute urinary retention despite having a will --> will was exchanged today but then he developed iatrogenic phimosis --> Urology consulted and reduced his foreskin
- Replete electrolytes with K>4, Mg>2
- Maintain euglycemia with goal BG 140-180
- Transfuse if needed to keep Hb>7, plt>20k
- Pt has an NGT that was on suction on AM of 03/18 (unknown reasons why this was on suction) --> clamp trial for x 6-8 hours, and if no worsening abd distension then start trickle TF and use NGT for PO meds
- DVT ppx
Critical care statement: A total of 40 minutes of critical care time was provided for this patient today. This includes management of unstable vital signs, evaluation of the patient at bedside, reviewing the patient's pertinent medical records
including radiographs, microbiology, laboratory evaluations, and discussion with primary team, consultants, pharmacy, nutrition, physical therapy, case management, charge nurse, critical care nursing, and respiratory therapy.
Data:
CTA Chest 03-17-2024:
Tiny right upper lobe pulmonary embolus. Minimal clot burden. No evidence of right heart strain.
Moderate left lower lobe pneumonia. New
Probable developing mild right lower lobe pneumonia
Intubation.
CT head 03-17-2024:
No acute intracranial abnormality noted.
Moderate atrophy. Stable
Moderate periventricular small vessel ischemic disease. Stable
Old bilateral thalamic infarcts. Stable
CXR 03-18-2024:
1. Endotracheal and orogastric tubes in normal position.
2. SEVERE ACUTE LEFT LOWER LOBE ATELECTASIS secondary to ACUTE MUCOUS PLUGGING in the LEFT LOWER LOBE BRONCHUS as seen on the CT examination performed 03/17/2024. Possible large left lower lobe pneumonia. Airway aspiration is a diagnostic
possibility.
3. Mild to moderate right to left mediastinal shift secondary to progressive volume loss in the left lower lobe which has increased since 03/17/2024 at 3:40 PM.
CXR 03-17-2024: New findings is a mild left lower lobe pneumonia versus atelectasis. Clinical and laboratory correlation recommended
--- NOTE | 2024-03-18 08:32 | PHA.VAN.FU ---
Vancomycin Assessment / Plan
- Assessment
Renal Function: Stable
WBC's are: Trending Down
In the past 24 hrs, patient has been: Febrile (Tmax = 102.9F)
Concomitant Antimicrobials: Piperacillin-tazobactam
- Dosing Plan
Continue: Vanc 750mg IV q12H
- Monitoring Plan
No level(s) ordered at this time: Consider levels after 03/19 1800 dose.
- Follow Up
Pharmacy will continue to follow.
Vancomycin Follow UP
- -
Patient Age: 69
Patient Sex: Male
Vancomycin Day #: 2
Indication: Pulmonary/Respiratory
Requesting Provider: Dr. Parson
Pertinent Antimicrobial Allergies:
NKDA
Height / Weight:
Height 5 ft 7 in
Actual Weight 69.4 kg
Pertinent Past Medical History: DM 2
- Vital Signs / Lab Results
Temp Pulse Resp BP Pulse Ox
99.2 F 103 16 131/86 98
03/18/24 07:06 03/18/24 06:00 03/18/24 06:00 03/18/24 06:00 03/18/24 08:18
Lab Results - Hematology
03/17/24 03/18/24
15:52 04:44
WBC 15.2 H 13.6 H
Lab Results - Chemistry
03/17/24 03/18/24
15:52 04:44
BUN 32 H 32 H
Creatinine 0.9 0.8
Estimated Creat Clear 73 83
Albumin 3.4 L 2.3 L
03/17/24 03/17/24 03/18/24
15:52 22:44 01:49
Lactic Acid 2.8 H 2.7 H 2.1 H
Lab Results - Urine
03/17/24
16:22
Urine Nitrite (Reflex) Negative
Leukocyte Esterase Rfl Negative
Microbiology Results
03/17/24 23:55 Legionella Urinary Antigen - Final
Urine Negative for Legionella pneumophila Serogroup 1 antigen.
A negative result does not rule out the possiblity of
Legionella infection due to other serogroups or species of
Legionella. Clinical correlation is recommended.
03/17/24 16:22 Influenza Types A & B (MARGOT) - Final
Nasal Swab Negative for Influenza A & B, NAAT
Negative results must be combined with clinical observations
and patient history.
Nucleic Acid Amplification test (NAAT)performed on the
[employer] platform.
[2024-03-18] MEDS: MIRALAX TUBE (08:40)
--- NOTE | 2024-03-18 10:01 | W.PN.HOSP.TC ---
Today's Communication/Plan
-
Continue with IV heparin
Continue with IV antibiotics
Wean vent per pulmonary
Assessment / Plan
Assessment / Plan
#Acute hypoxic respiratory failure requiring intubation in the ED, likely multifactorial due to PE and HCAP
- CT chest- rounded pleural-based focus of consolidation in the posterior right lower lobe on image #69 which measures approximately 4.4 x 2.5 cm.. There are 2 small similar findings posterior and medially in the right lower lobe on image 45 and 47.
These findings are likely developing pneumonia in right lower lobe as well.
- cont respiratory care, Duo-Nebs prn
-Continue vent support per bark press operator
-blood and respiratory cultures pending
-cont sedation w Propofol for now, and wean as per protocol
-Cont IV Vanco and IV Zosyn, awaiting cx
-IVF NS
#Small PE tiny thrombus in a segmental vessels supplying the right upper lobe
-cont Heparin gtt, monitor coags
# Left superficial femoral vein thrombosis on recent admission-suspect PE from DVT.
#Recent Acute left hip fracture. s/p left hip hemiarthroplasty on March 12, 2024. Stable, wound c/d/i at this time
- Plan at recent discharge [facility] with follow-up with orthopedics in 2 weeks.
#Recent MRSA bacteriURIA / possible UTI-was on doxycycline on discharge; currently on vancomycin for pneumonia.
# History of severe dysphagia - related to strokes. Was on modified diet. Speech therapist evaluation after extubation.
#History of CVA-continue with statins and Plavix
#Diabetes mellitus type 2-continue with sliding scale insulin. Hold Lantus.
#History essential hypertension-not on any medication in fact on midodrine.
Discussed with RN
Discussed with brother
DVT proph-hep gtt
Pt is Full Code
Total Critical Care Time____32_ minutes. I was immediately available to the patient and staff. I personally examined, reviewed labs, diagnostic images/reports, interpretations, treatment plans, discussed patient care with other providers and
family or caregivers (if patient is unable to make decisions), entered orders as appropriate and documented the medical record.
Anticipated Discharge: > 48 hours
Subjective/Interval History
-
Date of Service: March 18, 2024
Patient currently off of sedation. Still seems sedated.
Opens eyes but not particularly to commands.
He has a history of aphasia.
Objective Data
-
Labs:
Laboratory Results
03/18/24 03/18/24 03/18/24
01:49 04:44 10:30
WBC 13.6 H
Hgb 9.9 L
Hct 31.0 L
Plt Count 195 D
PT 16.4 H
INR 1.34
APTT > 200 H* Pending
Sodium 146 H
Potassium 3.6
Chloride 114 H
Carbon Dioxide 27
BUN 32 H
Creatinine 0.8
Glucose 229 H
Calcium 7.5 L
Total Bilirubin 0.8
AST 31
ALT 21
Alkaline Phosphatase 110
Vital Signs:
Vital Signs
Temp Pulse Resp BP Pulse Ox
99.2 F 103 14 102/62 100
03/18/24 07:06 03/18/24 08:45 03/18/24 08:45 03/18/24 08:15 03/18/24 08:45
I&O
03/17/24 03/18/24 03/19/24
06:59 06:59 06:59
Intake Total 7616.8 / 7705.8 208 / 208
Output Total 425 / 450 300 / 300
Balance 7191.8 / 7255.8 -92 / -92
Review of Systems
-
Unable to obtain full review of systems at this time due to: Other (Due to lethargy and aphasia)
Physical Exam
-
General: No Apparent Distress
HEENT: Moist Mucous Membranes
Respiratory: Clear to Auscultation (anteriorly)
Cardiac: Regular Rhythm and S1/S2
GI: Soft, Nondistended and Normal Bowel Sounds
Neuro: Awake; Negative Alert or No Motor Deficits (difficult to assess)
Psych: Calm
Data Reviewed
-
Labs: Labs Reviewed by me
[2024-03-18] MEDS: NSS 1000 IV (10:36)
[2024-03-18 10:54] LABS: APTT 92.8 Sec (23.4-35.0)
[2024-03-18 11:41] LABS: Glucose - Point of Care 226 mg/dl (70-99)
[2024-03-18] MEDS: PLAVIX TUBE (11:49)
[2024-03-18] MEDS: ProAmatine TUBE (11:58)
[2024-03-18] MEDS: NOVOLOG FLEXPEN-MODERATE RESISTANCE 3 UNITS SC ×2 (11:59→23:37)
--- NOTE | 2024-03-18 12:00 | PTCARENOTE ---
Pt. known to hospitalist, Dr. Johns, and pt.'s neuro baseline is aphasic from hx of CVA; baseline confirmed w family member @ bedside this AM. RT attempted CPAP wean 5/5/.40; unable to keep on settings d/t immediate/freq apnea alarms. Converted
back to original vent settings AC14/600/.40/+5. Return Clerk, Dr. Wilson, aware of wean attempt. Family @ bedside updated on pt. current condition.
--- NOTE | 2024-03-18 14:49 | CONS.URO ---
Consultation
-
Requesting Provider: Ned
Performing Provider: Yordan
Reason for Consultation: paraphimosis
Medical History
History of Present Illness
69 yo male with PMH significant for stroke, hypertension, hyperlipidemia, diabetes, PUD, alcohol use recent admission here 03/06 to 03/14 due to Toxic metabolic encephalopathy due to methicillin resistant Staphylococcus aureus urinary tract infection
with sepsis and bacteremia, acute left hip fracture, who presents to the ED due to unresponsive and SOB. He is currently intubated cannot provide history. Per ED note 'Per EMS they received a call for unresponsive patient�on their arrival patient
was found to be tachycardic, tachypneic, hypoxic and minimally responsive. He was transported to the emergency room for assessment.
Allergies/Home Medications
Allergies
Allergy/AdvReac Type Severity Reaction Status Date / Time
No Known Allergies Allergy Verified 03/17/24 17:30
Home Medications
�Medication �Instructions �Recorded �Confirmed �Type
atorvastatin 40 mg tablet 40 mg PO QPM High Cholesterol 06/05/23 03/17/24 History
bisacodyl 10 mg rectal suppository 10 mg NM DAILY PRN if mom 06/05/23 03/17/24 History
ineffective
clopidogrel 75 mg tablet 75 mg PO DAILY Blood Clot 06/05/23 03/17/24 History
Prevention/Tx
magnesium hydroxide 400 mg/5 mL 30 ml PO DAILY PRN if no bm x3 days 06/05/23 03/17/24 History
oral suspension (Milk of Magnesia)
midodrine 5 mg tablet 5 mg PO BID Blood Pressure 06/05/23 03/17/24 History
nystatin 100,000 unit/gram topical 1 applic topical BID Infection 06/05/23 03/17/24 History
powder
thiamine HCl (vitamin B1) 100 mg 100 mg PO BID Supplement 06/05/23 03/17/24 History
tablet
cyclobenzaprine 5 mg tablet 5 mg PO DAILY 03/06/24 03/17/24 History
furosemide 20 mg tablet 20 mg PO DAILY 03/06/24 03/17/24 History
insulin glargine 100 unit/mL (3 21 unit SC HS Diabetes 03/06/24 03/17/24 History
mL) subcutaneous pen (Lantus
Solostar U-100 Insulin)
melatonin 1 mg tablet 8 mg PO DAILY@199903/06/24 03/17/24 History
mupirocin 2 % topical ointment 1 applic topical DAILY 03/06/24 03/17/24 History
pregabalin 50 mg capsule (Lyrica) 50 mg PO DAILY 03/06/24 03/17/24 History
pregabalin 75 mg capsule (Lyrica) 75 mg PO QPM 03/06/24 03/17/24 History
sodium phosphates 19 gram-7 118 ml NM DAILY PRN if suppository 03/06/24 03/17/24 History
gram/118 mL enema (Fleet Enema) is ineffective
acetaminophen 500 mg tablet 1,000 mg (2 x 500 mg) PO Q6 #0 tabs 03/14/24 03/17/24 Rx
(Tylenol Extra Strength)
docusate sodium 100 mg capsule 100 mg PO BID #0 caps 03/14/24 03/17/24 Rx
doxycycline hyclate 100 mg capsule 100 mg PO Q12 #12 caps 03/14/24 03/17/24 Rx
insulin aspart U-100 100 unit/mL 2 unit (0.02 mL) SC AC #0 mL 03/14/24 03/17/24 Rx
(3 mL) subcutaneous pen
sennosides 8.6 mg-docusate sodium 1 tab PO BIDPRN PRN constipation 03/14/24 03/17/24 Rx
50 mg tablet (Stool #0 tabs
Softener-Stimulant Laxative)
tamsulosin 0.4 mg capsule 0.4 mg PO DAILYPRN PRN bladder 03/14/24 03/17/24 Rx
scan volume > 400 mL #0 caps
Physical Exam
Vital Signs
Vital Signs
Temp Pulse Resp BP Pulse Ox
99.4 F 108 16 91/69 97
03/18/24 11:00 03/18/24 13:30 03/18/24 13:30 03/18/24 13:30 03/18/24 13:30
Lab / Testing Results
Laboratory Results
03/18/24 04:44
03/18/24 04:44
Physical Exam
General: Intubated
Genito-urinary: Cabrera Catheter (paraphimosis -- manually reduced)
Assessment / Plan
-
paraphimosis -- manually reduced
--- NOTE | 2024-03-18 14:59 | PTCARENOTE ---
Urine output noted to be zero for 4 consecutive hrs. Bladder scanned for 200mL. Will replaced with sterile technique and immediately drained 225mL of basil urine. Foreskin pulled back prior to Will insertion. S/P will insertion noted
constriction around shaft and purple discoloration of penis head. Unable to manually move foreskin. Dr. Marino to bedside to assess and urology attending urologist'd. Urology, Dr. Farr, to bedside; manual maneuver performed and blood flow improved. Pt.
repositioned per protocol. Safe environment maintained.
[2024-03-18] MEDS: LYRICA 75 MG TUBE (17:20)
[2024-03-18] MEDS: LIPITOR 40 MG TUBE (17:20)
[2024-03-18] MEDS: ProAmatine 5 MG TUBE (17:20)
[2024-03-18] MEDS: OFIRMEV 100 IV (17:21)
[2024-03-18 17:33] LABS: APTT 86.2 Sec (23.4-35.0)
[2024-03-18 17:36] LABS: Glucose - Point of Care 166 mg/dl (70-99)
[2024-03-18] MEDS: NOVOLOG FLEXPEN-MODERATE RESISTANCE 1 UNITS SC (17:41)
[2024-03-18] MEDS: COLACE LIQUID 100 MG TUBE (19:29)
[2024-03-18] MEDS: HEPARIN 25000 UNITS/250 ML IV (19:43)
--- NOTE | 2024-03-18 20:00 | PTCARENOTE ---
Rec'd pt resting in bed, eyes open, no response to commands, observed moving arms, jean at 3mm, sluggish,ST/ SR, bp stable, temp 100 core, weak distal pulses, + Upper ext edema, abductor pillow in place, on lat rotation bed, skin warm/dry, # 7.5
oral ett- moved to R at 24 cm, ac 14, tv 600, 5 peep, 40 % fio2 , sat 99, lungs decr, coarse left base, scant white/davis secretions, hypo bowel sounds, no bm, abd round, soft, oral [place] clamped for meds, will draining basil urine, hep gtt at 900
units/hr; percussion done per order
[2024-03-18] MEDS: DUONEB 3 ML INH (20:23)
[2024-03-18] MEDS: MUCOMYST 10% 4 ML INH (20:24)
[2024-03-18] MEDS: LANTUS 0.209999999999999992 UNITS SC (21:55)
[2024-03-18 22:04] LABS: Glucose - Point of Care 231 mg/dl (70-99)
[2024-03-18] MEDS: LASIX 20 MG IV (22:08)
--- NOTE | 2024-03-18 22:09 | PTCARENOTE ---
[address]ne [address] NP aware of decr urine output, lasix 20mg iv given as ordered
[2024-03-18 23:45] LABS: Glucose - Point of Care 226 mg/dl (70-99)
--- NOTE | 2024-03-18 23:45 | PTCARENOTE ---
sys reviewed, changes noted, percussion done, fent 50mic given before bath, CHG bath done, linens changed
[2024-03-19] VITALS (27 sets, daily range): BP systolic 88–126; BP diastolic 54–78; PULSE 84; BMI 24.8
[2024-03-19] MEDS: MUCOMYST 10% 4 ML INH ×3 (00:55→14:24)
[2024-03-19] MEDS: DUONEB 3 ML INH ×3 (00:55→14:24)
[2024-03-19] MEDS: NSS 1000 IV (01:12)
[2024-03-19] MEDS: SUBLIMAZE 50 MCG IV (02:06)
--- NOTE | 2024-03-19 02:07 | PTCARENOTE ---
fent 50 josee for cpot 4
[2024-03-19] MEDS: ZOSYN 50 IV ×4 (03:22→21:36)
[2024-03-19 03:25] LABS: Hematocrit 24.7 % (39.0-52.0); Mean Corp Hgb Conc. 32.4 g/dL (33.0-37.0); Mean Corpuscular Volume 92.5 fL (80.0-94.0); Mean Platelet Volume 12.5 fL (7.4-10.4); Platelet Count 170 10^3/uL (130-400); Red Blood Cell Count 2.67 10^6/uL (4.70-6.10); Red Cell Dist. Width 14.5 % (11.5-14.5); White Blood Cell Count 10.1 10^3/uL (4.8-10.8)
[2024-03-19 03:37] LABS: APTT 80.9 Sec (23.4-35.0)
--- NOTE | 2024-03-19 04:00 | PTCARENOTE ---
sys reviewed, ett repos on eft side at 24cm, percussion done
[2024-03-19 04:12] LABS: Blood Urea Nitrogen 27 mg/dl (9-20); Calcium 7.2 mg/dl (8.4-10.2); Carbon Dioxide 26 mmol/L (22-30); Chloride 115 mmol/L (98-107); Estimated Creatinine Clearance 83 ml/min; Glucose 174 mg/dl (70-99); Phosphorus 2.8 mg/dl (2.5-4.5); Potassium 2.7 mmol/L (3.5-5.1); Sodium 145 mmol/L (135-145); eGFR > 60.00
--- NOTE | 2024-03-19 04:16 | PTCARENOTE ---
Wayne cook Np aware of K- 2.7, orders pending
[2024-03-19] MEDS: KCL ELIXIR 40 MEQ TUBE ×2 (05:07→15:03)
[2024-03-19] MEDS: NOVOLOG FLEXPEN-MODERATE RESISTANCE 3 UNITS SC ×2 (05:07→17:38)
[2024-03-19] MEDS: VANCOCIN 150 IV (05:07)
--- NOTE | 2024-03-19 05:09 | PTCARENOTE ---
40 kcl via tube given per order
[2024-03-19] MEDS: TYLENOL ORAL SOLUTION 650 MG PO (05:16)
[2024-03-19] MEDS: KCL 270 MEQ IV (05:16)
[2024-03-19 05:17] LABS: Glucose - Point of Care 217 mg/dl (70-99)
--- NOTE | 2024-03-19 05:17 | PTCARENOTE ---
tylenol 650 mg via tube given for temp; 40 kcl/250 over 4hr hung per order
[2024-03-19 05:22] LABS: B.E. 2.8 mmol/L; HCO3 25.1 mmol/L (21-28); O2 Saturation % 96.5 % (94-98); PCO2 30 mmHg (35-48); PO2 70 mmHg (83-108); pH 7.53 (7.35-7.45)
--- NOTE | 2024-03-19 05:30 | PTCARENOTE ---
TV decr to 550, fio2 inc to 50% by resp per order
--- NOTE | 2024-03-19 07:34 | W.PN.URO.CBU ---
Today's Communication / Plan
-
will sign off
Assessment / Plan
-
paraphimosis -- corrected
Diagnosis
-
Date of Service: March 19, 2024
-
Patient Diagnosis:
paraphimosis s/p manual reduction 03/18
Subjective
-
intubated
Objective
-
Vital Signs
Temp Pulse Resp BP Pulse Ox
100.2 F 114 14 91/60 98
03/19/24 07:00 03/19/24 06:00 03/19/24 06:00 03/19/24 06:00 03/19/24 06:00
Intake and Output
03/18/24 03/19/24 03/20/24
06:59 06:59 06:59
Intake Total 7616.8 / 7705.8 3011.5 / 3011.5
Output Total 425 / 450 1375 / 1375
Balance 7191.8 / 7255.8 1636.5 / 1636.5
Intake:
IV fluids (Total) 7366.8 / 7455.8 2131.5 / 2131.5
KCL 67.5 / 67.5
Nss 1,000 ml @ 80 mls/hr IV . 720 / 800 1848 / 1848
[id number] SHIVANI Rx#:[id number]
heparin 6612 / 6621 216 / 216
propofol 34.8 / 34.8
IV piggybacks 250 / 250 600 / 600
Amount instilled into GI Tube ( 280 / 280
Total)
Stowell Sump 280 / 280
Output:
Gastrointestinal tube output ( 250 / 250
Total)
Stowell Sump 250 / 250
Urine, Cabrera 425 / 450 1125 / 1125
Laboratory Results
03/19/24 03:06
Physical Exam
-
General - intubated, unconscious
Genitalia -Cabrera; uncircumcised foreskin is in normal anatomic position
[2024-03-19] MEDS: LYRICA 50 MG TUBE (08:24)
[2024-03-19] MEDS: COLACE LIQUID 100 MG TUBE (08:24)
[2024-03-19] MEDS: MIRALAX 17 GRAMS TUBE (08:24)
[2024-03-19] MEDS: LASIX 20 MG TUBE (08:24)
[2024-03-19] MEDS: ProAmatine 5 MG TUBE (08:24)
[2024-03-19] MEDS: PLAVIX 75 MG TUBE (08:27)
--- NOTE | 2024-03-19 08:30 | PTCARENOTE ---
Rec'd pt resting in bed, eyes open, tracks with eyes and squeezes with RUE, observed moving R arm, ST, bp stable, now afebrile, + Upper ext edema, abductor pillow in place, on lat rotation bed, skin warm/dry, # 7.5 oral ett- 24 cm, ac 14, tv 550, 5
peep, 50 % fio2 , sat 99, lungs decr, scant davis secretions, hypo bowel sounds, no bm, abd round, soft, oral salem clamped for meds, will draining basil urine, hep gtt at 900 units/hr; percussion done per order
--- NOTE | 2024-03-19 08:39 | W.PN.HOSP.TC ---
Today's Communication/Plan
-
Continue Zosyn. DC vancomycin.
Continue with heparin. Repeat H&H this evening.
Replete potassium and follow-up.
Wean ventilator per pulmonary.
Assessment / Plan
Assessment / Plan
#Acute hypoxic respiratory failure requiring intubation in the ED, likely multifactorial due to PE and HCAP
- CT chest- rounded pleural-based focus of consolidation in the posterior right lower lobe on image #69 which measures approximately 4.4 x 2.5 cm.. There are 2 small similar findings posterior and medially in the right lower lobe on image 45 and 47.
These findings are likely developing pneumonia in right lower lobe as well.
- cont respiratory care, Duo-Nebs prn
- Continue vent support per inspector and clerk
-Not bacteremic. COVID/flu negative. Sputum culture pending. Legionella and streptococcal antigen negative. MRSA screen negative.
-cont IV Zosyn, DC further vancomycin.
#Small PE tiny thrombus in a segmental vessels supplying the right upper lobe
-cont Heparin gtt, monitor coags
# Left superficial femoral vein thrombosis on recent admission-suspect PE from DVT.
#Anemia-drop in H&H noted without any obvious external bleeding. Will check it again this evening. Continues to drop will evaluate further.
#Hypokalemia-replete
#Recent Acute left hip fracture. s/p left hip hemiarthroplasty on March 12, 2024. Stable, wound c/d/i at this time
- Plan at recent discharge was retirement with follow-up with orthopedics in 2 weeks.
#Recent MRSA bacteriuria/ possible UTI-was on doxycycline on discharge . UA neg on this adx - hold further abx from standpoint
# History of severe dysphagia - related to strokes. Was on modified diet. Speech therapist evaluation after extubation.
#History of CVA-continue with statins and Plavix
#Diabetes mellitus type 2-continue with sliding scale insulin. Hold Lantus.
#History essential hypertension-not on any medication in fact on midodrine.
Discussed with RN
Discussed with brother and updated the clinicals from today ,tx plan. According to him his brother is mostly aphasic and can say few words here and there. He can understand everything clearly. He was also surprised to learn that his brother was
able to speak in sentences with the nurse in the recent visit.
DVT proph-hep gtt
Pt is Full Code
Total Critical Care Time_32____ minutes. I was immediately available to the patient and staff. I personally examined, reviewed labs, diagnostic images/reports, interpretations, treatment plans, discussed patient care with other providers and
family or caregivers (if patient is unable to make decisions), entered orders as appropriate and documented the medical record.
Anticipated Discharge: > 48 hours
Subjective/Interval History
-
Date of Service: March 19, 2024
Not on sedation this morning. Needed as needed dose of sedation last night twice. Opens eyes but not following command.
I was told he may be aphasic but was also told he may be able to communicate in Kyrgyz.
Objective Data
-
Labs:
Laboratory Results
03/19/24 03/19/24 03/19/24
03:06 05:13 10:00
WBC 10.1
Hgb 8.0 L
Hct 24.7 L
Plt Count 170
APTT 80.9 H
HCO3 25.1
Sodium 145 Cancelled
Potassium 2.7 L* Cancelled
Chloride 115 H Cancelled
Carbon Dioxide 26 Cancelled
BUN 27 H Cancelled
Creatinine 0.8 Cancelled
Glucose 174 H Cancelled
Calcium 7.2 L Cancelled
03/19/24
12:00
WBC
Hgb
Hct
Plt Count
APTT
HCO3
Sodium Pending
Potassium Pending
Chloride Pending
Carbon Dioxide Pending
BUN Pending
Creatinine Pending
Glucose Pending
Calcium Pending
Vital Signs:
Vital Signs
Temp Pulse Resp BP Pulse Ox
100.2 F 114 14 91/60 99
03/19/24 07:00 03/19/24 07:37 03/19/24 07:37 03/19/24 06:00 03/19/24 07:39
I&O
03/18/24 03/19/24 03/20/24
06:59 06:59 06:59
Intake Total 7616.8 / 7705.8 3011.5 / 3011.5
Output Total 425 / 450 1375 / 1375
Balance 7191.8 / 7255.8 1636.5 / 1636.5
Review of Systems
-
Unable to obtain full review of systems at this time due to: Patient Intubation
Physical Exam
-
General: No Apparent Distress
HEENT: Moist Mucous Membranes
Respiratory: Clear to Auscultation (Anteriorly) and Non Labored Respirations; Negative Accessory Resp Muscle Use
Cardiac: Regular Rhythm and S1/S2
GI: Soft
Neuro: Negative Alert
Psych: Calm (In restraints this morning)
Data Reviewed
-
Labs: Labs Reviewed by me
--- NOTE | 2024-03-19 11:15 | W.PN.INTV ---
Today's Communication / Plan
Recommendations
Hold sedation
Spontaneous breathing trial today if appropriate, continue mechanical ventilation without change
Continue antibiotics
Continue heparin drip, follow PTT
Follow-up electrolytes
Assessment
-
Assessment: 69-year-old male with a past medical history of CVA with expressive aphasia/dysarthria, DM type II, former tobacco use disorder, hypertension and hyperlipidemia who presents with altered mental status. Patient was transferred from
[facility] via EMS and had been declining over the last 3 weeks. In the ER, patient febrile to 102.9 �F, tachycardic to 147, tachypneic to 24 breaths/min, BP 139/79 and SpO2 87% on nonrebreather. Labs showed leukocytosis to 15.2, anemia 11.6,
hyperglycemia to 234, elevated lactate of 2.8, 2+ urine ketones with no signs of UTI, and COVID antigen negative. Blood cultures were collected. Initial CXR showed suspected LLL pneumonia versus atelectasis. Unfortunately patient's respiratory
distress worsened and he was intubated in the ER. CTA of the chest performed showing a left lower lobe + RLL pneumonia with a small RUL-segmental PE with no evidence of RV strain. He was given antibiotics in the ER with vancomycin/Zosyn, started
on heparin drip, given 1L of NS 0.9%, and started on propofol for sedation. Patient admitted to the ICU for further care, and critical care services consulted for additional management/recommendations.
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
recent MRSA UTI
Impression:
#Acute respiratory failure with hypoxia on mechanical ventilation (intubated 03-17-2024 in ER)
#Multifocal pneumonia/HAP
#LLL atelectasis with mucous plugging - likely secondary to prolonged AMS prior to admission with aspiration and severe LLL pneumonia
#Acute submassive pulmonary embolism without RV strain
#Hx of LLE DVT Dx on 03/08/2024
#Lactic acidosis
#Hyperglycemia
#Phimosis
#Chronic anemia (Hb baseline 12-13.5)
#Hx of CVA with residual expressive aphasia and dysarthria
Plan:
He remains critically ill.
-
Mechanical ventilation settings reviewed. Pulmonary mechanics improved.
Attemptted to spontaneous breathing trial this morning: Patient was apneic. He did receive 50 mcg of fentanyl in the last night.
Will hold sedation for now.
- Continue mechanical ventilation with daily SAT/SBT if clinically appropriate
- Titrate FiO2 and PEEP to maintain SpO2 >90-94%, while keeping plateau pressure <30
- Daily blood gas with vent adjustments as needed
Continue secretion clearance intervention
-chest PT and Duonebs and mucomyst in effort to improve LLL atelectasis. If no improvement, then will need bronchoscopy before extubation
- Continue Abx - Zosyn; vanco DC'd given negative MRSA swab; 7-10 days total of ABx
-Sputum culture normal respiratory raad. Negative Legionella antigen. Influenza negative.
Blood cultures negative.
-
Acute pulmonary embolism without RV strain
- Continue with systemic anticoagulation with heparin drip � eventual NOAC as per patient's insurance (case management can assist with this)
Hemodynamically stable without vasopressors.
Hypokalemia noted: Repleted. Labs to be repeated at 2 PM.
- Replete electrolytes with K>4, Mg>2
- Maintain euglycemia with goal BG 140-180
- Transfuse if needed to keep Hb>7, plt>20k
-NG tube in place
- DVT ppx
Critical care statement: A total of 35 minutes of critical care time was provided for this patient today. This includes management of unstable vital signs, evaluation of the patient at bedside, reviewing the patient's pertinent medical records
including radiographs, microbiology, laboratory evaluations, and discussion with primary team, consultants, pharmacy, nutrition, physical therapy, case management, charge nurse, critical care nursing, and respiratory therapy.

Data:
CTA Chest 03-17-2024:
Tiny right upper lobe pulmonary embolus. Minimal clot burden. No evidence of right heart strain.
Moderate left lower lobe pneumonia. New
Probable developing mild right lower lobe pneumonia
Intubation.
CT head 03-17-2024:
No acute intracranial abnormality noted.
Moderate atrophy. Stable
Moderate periventricular small vessel ischemic disease. Stable
Old bilateral thalamic infarcts. Stable
CXR 03-18-2024:
1. Endotracheal and orogastric tubes in normal position.
2. SEVERE ACUTE LEFT LOWER LOBE ATELECTASIS secondary to ACUTE MUCOUS PLUGGING in the LEFT LOWER LOBE BRONCHUS as seen on the CT examination performed 03/17/2024. Possible large left lower lobe pneumonia. Airway aspiration is a diagnostic
possibility.
3. Mild to moderate right to left mediastinal shift secondary to progressive volume loss in the left lower lobe which has increased since 03/17/2024 at 3:40 PM.
CXR 03-17-2024: New findings is a mild left lower lobe pneumonia versus atelectasis. Clinical and laboratory correlation recommended
Subjective Dataa
Subjective Data
Date of Service:
Date of Service: March 19, 2024
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
Subjective:
Intubated, unable to provide history.
Opening eyes to verbal stimuli.
Otherwise noncommunicative
Review of Systems
General: Other (Difficult to obtain due to intubation status and history of aphasia)
Objective Data
Data Reviewed
Vital Signs / I&O / Oxygen:
Vital Signs
Temp Pulse Resp BP Pulse Ox
100.2 F 112 14 105/73 98
03/19/24 07:00 03/19/24 10:00 03/19/24 10:00 03/19/24 10:00 03/19/24 10:00
Intake and Output
03/18/24 03/19/24 03/20/24
06:59 06:59 06:59
Intake Total 7616.8 / 7705.8 3011.5 / 3168.0 569.5 / 569.5
Output Total 425 / 450 1375 / 1375 72 / 72
Balance 7191.8 / 7255.8 1636.5 / 1793.0 497.5 / 497.5
SaO2 [A/C] 98
SaO2 98
Physical Exam
General: Respiratory Distress (n)
HEENT: Normocephalic
Cardiovascular: S1-S2
Respiratory: Clear, Non-Labored Respirations and ET Tube (no secretions)
GI: Soft and Non Distended
Neurology: Other (Aphasic at baseline.) and Other (Lethargic but arousable.)
Skin: Warm
Labs/Micro/Reports
Laboratory Results
03/18/24 03/19/24 03/19/24
17:12 03:06 05:13
APTT 86.2 H 80.9 H
pH 7.53 H
pCO2 30 L
pO2 70 L
HCO3 25.1
O2 Delivery Level
Microbiology
03/18/24 02:17 Sputum Respiratory Culture - Preliminary
Usual Respiratory Raad
03/18/24 02:17 Sputum Gram Stain - Preliminary
03/17/24 16:22 Blood/Venous Blood Culture - Preliminary
No Growth in 24 hours- Final report to follow
03/17/24 22:44 Nose Nasal Screen MRSA (PCR) - Final
MRSA not detected - performed by PCR methodology.
03/17/24 23:55 Urine Legionella Urinary Antigen - Final
Negative for Legionella pneumophila Serogroup 1 antigen.
A negative result does not rule out the possiblity of
Legionella infection due to other serogroups or species of
Legionella. Clinical correlation is recommended.
03/17/24 16:22 Nasal Swab Influenza Types A & B (MARGOT) - Final
Negative for Influenza A & B, NAAT
Negative results must be combined with clinical observations
and patient history.
Nucleic Acid Amplification test (NAAT)performed on the
[employer] platform.
--- NOTE | 2024-03-19 11:22 | CM ---
CM following re: discharge planning.
Discussed in Rounds, reviewed pt's chart, met with pt.
Pt is a 69 year old male, admitted with primary dx of Acute hypoxic respiratory failure requiring intubation in the ED. Per Rounds meeting, pt remains intubated, continue supportive care.
Pt is not a great historian. pt is a retirement care resident at [facility] since january 2023, requires total care, requires 2 people to assist with transferring, Tye lift. Pt is on bed hold at [facility]. Pt's cousin has POA.
D/C plan: return back to [facility] when medically stable.
CM will follow with discharge plan updates as hospitalization progresses
[2024-03-19] MEDS: NOVOLOG FLEXPEN-MODERATE RESISTANCE 5 UNITS SC (11:24)
[2024-03-19] MEDS: NSS (PRESERVATIVE FREE) 10 ML IV (11:24)
[2024-03-19] MEDS: PROTONIX IV 40 MG IV (11:24)
[2024-03-19 11:31] LABS: Glucose - Point of Care 272 mg/dl (70-99)
--- NOTE | 2024-03-19 12:03 | PTCARENOTE ---
sys reviewed, changes noted, percussion done.
--- NOTE | 2024-03-19 13:00 | WOUNDNOTE ---
L 5TH TOE
--- NOTE | 2024-03-19 13:03 | WOUNDNOTE ---
[facility] RN note: Patient admitted with HCAP, acute hypoxic respiratory failure. Patient admitted from [facility].
See H&P for complete history.
PMH: CVA, HTN, DM, PAD, admission 03/06-03/14/24 d/t toxic metabolic encephalopathy, UTI, L hip fracture, s/p L hip hemiarthroplasty 03/12/24.
Wound Location and type/assessment: Patient admitted with: DTI sacrum, DTI bilateral heels. L great toe and L 5th toe dry black necrotic ulcers suspect r/t PAD, trauma. Pedal pulses heard via portable Doppler. L hip post op Aquacell dressing D+I.
Appetite: NPO. NG tube.
Pressure redistribution devices in place: Progressa lateral rotation air mattress. Pillow and air chair cushion off loading heels.
Plan: Sacral shaped silicone border foam changed. Foam dressing change on heels. Heel elevation maintained. Patient turned to L semi side lying position with help from ESSENCE Gan.
Will update and confirm orders with hospitalist and discussed with RN.
Care plan to be updated and will follow as needed.
Note to case management of equipment requested for discharge: Air mattress if not already in place.
Recommend follow up at wound care center upon discharge.
[2024-03-19 13:40] LABS: Hematocrit 24.8 % (39.0-52.0); Hemoglobin 7.8 g/dL (13.0-18.0)
[2024-03-19 14:07] LABS: Blood Urea Nitrogen 26 mg/dl (9-20); Calcium 7.2 mg/dl (8.4-10.2); Carbon Dioxide 28 mmol/L (22-30); Chloride 118 mmol/L (98-107); Estimated Creatinine Clearance 66 ml/min; Glucose 181 mg/dl (70-99); Potassium 3.4 mmol/L (3.5-5.1); Sodium 146 mmol/L (135-145); eGFR > 60.00
[2024-03-19 14:33] LABS: B.E. 1.1 mmol/L; HCO3 24.9 mmol/L (21-28); O2 Saturation % 98.8 % (94-98); PCO2 35 mmHg (35-48); PO2 156 mmHg (83-108); pH 7.46 (7.35-7.45)
--- NOTE | 2024-03-19 15:33 | PTCARENOTE ---
SBT for >2hr. ABG drawn and pt extubated as ordered by Dr Hernadez at 1525. 4L NC applied. Intermittent snoring noted and MD aware. Pt remains somnolent but swallowing saliva. SpO2 100%
--- NOTE | 2024-03-19 16:21 | W.PN.UPDATE ---
Update Note
Progress Note Update
Patient extubated after longer than 1 hour weaning trial.
ABG was appropriate.
Patient remains obtunded but has a cough effort.
Currently not bronchospastic.
Coughing with suctioning, snoring.
Hold any sedation
Keep with the head of the bed elevated
Nocturnal CPAP as patient has history of obstructive sleep apnea 10 cm of water. Discussed with nursing and respiratory therapy
Maintain ICU level of care
[2024-03-19 16:22] LABS: Hematocrit 26.6 % (39.0-52.0); Hemoglobin 8.7 g/dL (13.0-18.0)
--- NOTE | 2024-03-19 16:25 | WOUNDNOTE ---
WO RN note: Anastacio texted [facility] Sarah hip post op Aquacell dressing photo asking if/when nursing should remove the dressing. Anel responded nursing can remove the post op Aquacell dressing anytime in the next few days; fabian will stay
in for now. Care plan updated.
[2024-03-19] MEDS: LYRICA TUBE (17:35)
[2024-03-19] MEDS: ProAmatine TUBE (17:35)
[2024-03-19] MEDS: LIPITOR TUBE (17:35)
[2024-03-19 17:48] LABS: Glucose - Point of Care 215 mg/dl (70-99)
[2024-03-19] MEDS: COLACE LIQUID TUBE (19:08)
--- NOTE | 2024-03-19 20:00 | PTCARENOTE ---
Rec'd pt lethargic, arouses to verbal & tactile stimulation, no response to commands, nonverbal( previous CVA), slight movement noted R hand, CARMINA at 3mm, sluggish, ST, Temp 100.1, + upper ext edema, weak distal pulses, adductor pillow in place,
skin warm/dry, O2 2 liters nc, lungs decr, sat 98, resp shallow, percussion done, hypo bowel sounds, no bm, abd soft/round, NPO, thermister will draining basil urine w/ sediment, heparin gtt at 900 units/hr
[2024-03-19 21:41] LABS: Glucose - Point of Care 184 mg/dl (70-99)
--- NOTE | 2024-03-19 21:41 | PTCARENOTE ---
placed on cpap 10 w/ 2 liters ethan resp therapist for the night
[2024-03-19] MEDS: LANTUS 0.280000000000000027 UNITS SC (21:42)
[2024-03-19 22:39] LABS: Venous Blood Gas B.E. 2.6 mmol/L (-4 to +4); Venous Blood Gas HCO3 27.2 mmol/L (22-27); Venous Blood Gas O2 Sat % 98.8 %; Venous Blood Gas pCO2 41 mmHg (35-48); Venous Blood Gas pH 7.43 (7.32-7.43); Venous Blood Gas pO2 155 mmHg (30-50)
--- NOTE | 2024-03-19 22:40 | PTCARENOTE ---
venous abg sent due to lethargy- see result
[2024-03-19] MEDS: NOVOLOG FLEXPEN-HIGH RESISTANCE 2 UNITS SC (23:11)
[2024-03-19 23:21] LABS: Glucose - Point of Care 190 mg/dl (70-99)
--- NOTE | 2024-03-19 23:49 | PTCARENOTE ---
sys reviewed, changes noted, lethargic, CHG bath done, linens changed, opened eyes during bath, moved R & Larms, no response to commands, percussion done
[2024-03-20] VITALS (24 sets, daily range): BP systolic 88–129; BP diastolic 59–82; PULSE 81–88; O2SAT 96; BMI 23.7
[2024-03-20] MEDS: HEPARIN 25000 UNITS/250 ML IV (01:24)
[2024-03-20 03:19] LABS: Hematocrit 24.3 % (39.0-52.0); Hemoglobin 7.7 g/dL (13.0-18.0); Mean Corp Hgb Conc. 31.7 g/dL (33.0-37.0); Mean Corpuscular Hgb 29.8 pg (27.0-31.0); Mean Corpuscular Volume 94.2 fL (80.0-94.0); Mean Platelet Volume 12.6 fL (7.4-10.4); Platelet Count 189 10^3/uL (130-400); Red Blood Cell Count 2.58 10^6/uL (4.70-6.10); Red Cell Dist. Width 14.8 % (11.5-14.5); White Blood Cell Count 10.5 10^3/uL (4.8-10.8)
[2024-03-20] MEDS: ZOSYN 50 IV ×4 (03:22→22:29)
[2024-03-20 03:32] LABS: APTT 68.5 Sec (23.4-35.0)
[2024-03-20 03:44] LABS: Blood Urea Nitrogen 25 mg/dl (9-20); Calcium 7.4 mg/dl (8.4-10.2); Carbon Dioxide 27 mmol/L (22-30); Chloride 120 mmol/L (98-107); Estimated Creatinine Clearance 73 ml/min; Glucose 125 mg/dl (70-99); Potassium 3.6 mmol/L (3.5-5.1); Sodium 147 mmol/L (135-145); Triglycerides 82 mg/dl (10-149); eGFR > 60.00
[2024-03-20] MEDS: HEPARIN 2700 UNITS IV (03:47)
--- NOTE | 2024-03-20 03:50 | PTCARENOTE ---
Addendum entered by Roxane Mon RN 03/20/24 03:52:
percussion done
Original Note:
sys reviewed, opened eyues when turned, moved upper extremities, ptt 68.5, hep 2700 units bolus followed by hep gtt incr to 1000 units per protocal
[2024-03-20] MEDS: CALCIUM GLUCONATE 130 MG IV (05:00)
--- NOTE | 2024-03-20 05:00 | PTCARENOTE ---
3 gm nora gluconate hung over 1 hr per order
[2024-03-20] MEDS: NOVOLOG FLEXPEN-HIGH RESISTANCE 1 UNITS SC ×2 (05:05→12:17)
[2024-03-20 05:15] LABS: Glucose - Point of Care 121 mg/dl (70-99)
--- NOTE | 2024-03-20 09:13 | W.PN.HOSP.TC ---
Today's Communication/Plan
-
Continue with antibiotics
Speech evaluation and if he passes continue with the diet.
IV fluids.
CT of the abdomen pelvis without contrast to rule out any abdominal/retroperitoneal bleeding
Follow H&H closely.
If okay from pulmonary standpoint we will transfer him out of ICU.
Assessment / Plan
Assessment / Plan
#Acute hypoxic respiratory failure requiring intubation in the ED, likely multifactorial due to PE and HCAP
- CT chest- rounded pleural-based focus of consolidation in the posterior right lower lobe on image #69 which measures approximately 4.4 x 2.5 cm.. There are 2 small similar findings posterior and medially in the right lower lobe on image 45 and 47.
These findings are likely developing pneumonia in right lower lobe as well.
- cont respiratory care, Duo-Nebs prn
- Off of vent support since yesterday and stable oxygenation caba on 2 L of oxygen via nasal cannula
-Not bacteremic. COVID/flu negative. Sputum culture pending. Legionella and streptococcal antigen negative. MRSA screen negative.
-cont IV Zosyn
-White count normalized. Low-grade fevers noted which I would continue to follow.
#Small PE tiny thrombus in a segmental vessels supplying the right upper lobe
-cont Heparin gtt, monitor coags
# Left superficial femoral vein thrombosis on recent admission-suspect PE from DVT.
#Anemia-drop in H&H noted without any obvious external bleeding. No rectal bleeding ,no hematemesis. Difficult historian so unable to localize if any bleeding source. In view of new anemia and significant drop will do a CT of the abdomen pelvis
for intra-abdominal/retroperitoneal hemorrhage. His left thigh femur repair site looks clean without any hematoma. Continue to follow H&H. Aim to keep more than 7.
#Hypokalemia-repleted
#Recent Acute left hip fracture. s/p left hip hemiarthroplasty on March 12, 2024. Stable, wound c/d/i at this time
- Plan at recent discharge was group home with follow-up with orthopedics in 2 weeks.
#Recent MRSA bacteriuria/ possible UTI-was on doxycycline on discharge . UA neg on this adx - hold further abx from standpoint
# History of severe dysphagia - related to strokes. Was on modified diet. Speech therapist evaluation after extubation.
#History of CVA-continue with statins and Plavix
#Diabetes mellitus type 2-continue with sliding scale insulin. Hold Lantus.
#History essential hypertension-not on any medication in fact on midodrine.
Discussed with RN
DW senior product consultant
Total time spent on today's encounter was 52 minutes which included time spent in counseling the family regarding diagnosis and treatment plan as listed above, goals of care, and symptom management. Case was discussed with nursing staff,
specialists, . All labs and imaging personally reviewed by me. Remainder the time spent in detailed review of previous records, lab data, imaging, and other medical provider documentation.
Discussed with brother 03/19 and updated the clinicals ,tx plan. According to him his brother is mostly aphasic and can say few words here and there. He can understand everything clearly. He was also surprised to learn that his brother was able
to speak in sentences with the nurse in the recent visit.
DVT proph-hep gtt
Pt is Full Code
Anticipated Discharge: > 48 hours
Subjective/Interval History
-
Date of Service: March 20, 2024
Extubated yesterday.
Patient with eyes open but does not talk or communicate. Does not seems to follow commands.
Facial droop and left arm and leg weakness which is chronic for him. Also has issues with aphasia chronically after stroke.
Objective Data
-
Labs:
Laboratory Results
03/20/24 03/20/24
02:49 10:00
WBC 10.5
Hgb 7.7 L
Hct 24.3 L
Plt Count 189
APTT 68.5 H Pending
Sodium 147 H
Potassium 3.6
Chloride 120 H
Carbon Dioxide 27
BUN 25 H
Creatinine 0.9
Glucose 125 H
Calcium 7.4 L
Vital Signs:
Vital Signs
Temp Pulse Resp BP Pulse Ox
99.1 F 85 14 105/70 98
03/20/24 07:52 03/20/24 03:00 03/20/24 03:00 03/20/24 03:00 03/20/24 03:00
I&O
03/19/24 03/20/24 03/21/24
06:59 06:59 06:59
Intake Total 3011.5 / 3168.0 1475.5 / 1475.5
Output Total 1375 / 1375 662 / 662
Balance 1636.5 / 1793.0 813.5 / 813.5
Review of Systems
-
Unable to obtain full review of systems at this time due to: Other (speech issues ?aphasia ? language barrier too)
Physical Exam
-
General: No Apparent Distress
HEENT: Moist Mucous Membranes
Respiratory: Clear to Auscultation (anteriorly) and Non Labored Respirations; Negative Accessory Resp Muscle Use
Cardiac: Regular Rhythm and S1/S2
GI: Soft
Neuro: Awake; Negative Alert (slightly lethargic)
Psych: Calm
Data Reviewed
-
Labs: Labs Reviewed by me
[2024-03-20] MEDS: PROTONIX IV 40 MG IV (09:22)
[2024-03-20] MEDS: NSS (PRESERVATIVE FREE) 10 ML IV (09:23)
--- NOTE | 2024-03-20 09:37 | PN.CDI ---
CDI
- -
CDI:
Physician Documentation Request
Admit Date: 03/17/24 20:14
Dear Doctor Andreas,
Please review the following and provide your response in the progress notes.
Clinical Indicators:
The diagnosis of Acute toxic metabolic encephalopathy was documented on 03/17 H&P but is not consistently noted in subsequent documentation.
- 03/17 H&P 'Acute toxic metabolic encephalopathy likey due to HCAP...CT head without acute findings'
- 03/17 ER Physician 'He presents essentially unresponsive, hypoxic and tachypneic'
- 'Lying in bed unresponsive�winces to vigorous sternal rub but no verbal response only occasional grunt or groaning'
- 03/20 PN 'Patient with eyes open but does not talk or communicate. Does not seems to follow commands.'
Please clarify the following:
____ - Toxic metabolic encephalopathy was present on admission and is still being monitored, evaluated or treated
____ - Toxic metabolic encephalopathy was ruled out
____ - Other
Use of terms such as suspected, likely, concern for, or probable (associated with a specific diagnosis that is being evaluated, monitored, or treated as if it exists) are acceptable and can be coded in the inpatient setting, when documented at the
time of discharge.
Thank you,
Ravi Cole RN
CDI Specialist
Please use your independent medical judgment in providing your response.
--- NOTE | 2024-03-20 09:56 | PN.CDI ---
CDI
- -
CDI:
Physician Documentation Request
Admit Date: 03/17/24 20:14
Dear Doctor Andreas,
Please review the following and provide your response in the progress notes.
Clinical Indicators:
- 03/19 Wound Note indicates, all POA:
- DTI sacrum
- DTI b/l heels
- Left great toe/Left 5th toe necrotic ulcers suspect r/t PAD, trauma
Physician documentation of the type and location of wounds is required for compliant documentation. Based on the above clinical findings and your assessment, please provide the following in your progress note:
1. Location of the ulcer/wound, including laterality.
2. Type (etiology) of ulcer/wound:
- Diabetic ulcer
- Arterial (ischemic) ulcer
- Traumatic wound
- Venous stasis ulcer
- Pressure (decubitus) ulcer
- Non-healing surgical wound
- Other
- Unable to determine
Use of terms such as suspected, likely, concern for, or probable (associated with a specific diagnosis that is being evaluated, monitored, or treated as if it exists) are acceptable and can be coded in the inpatient setting, when documented at the
time of discharge.
Thank you,
Ravi Cole RN
CDI Specialist
Please use your independent medical judgment in providing your response.
*Source: National Pressure Ulcer Advisory Panel (NPUAP)
--- NOTE | 2024-03-20 10:20 | PTOTSP ---
Speech Language Pathology
Pt seen for clinical bedside swallow evaluation. Known to SORTING AND FOLDING SUPERVISOR at . Most recently seen on last admit 03/13/24 with recs for IDDSI Level 4/moderately thick liquids. Most recent VSE completed 06/06/23 with silent aspiration of thin liquids,
nectar-thick liquids via cup, and puree. Recs were for consideration for NPO vs dysphagia 1 solids/nectar-thick liquids via tsp. Worsened swallow function noted when compared to prior VSE in January 2023 and found to have acute CVA at that time.
P.O. trials of moderately thick liquids via tsp provided x2. Decreased labial seal on spoon to actively accept bolus. Prolonged oral phase noted. Double swallows per bolus. Continued munching pattern post swallows, suspect behavioral. Delayed
coughing episode noted. Further P.O. trials deferred given mentation.
Recommend:
(1) NPO
(2) Oral care 4x/day with suctioning as needed
(3) Not appropriate for Aspiration Risk Hydration Protocol (ARHP) given mentation
(4) Non-oral meds
(5) Consideration for repeat VSE once more alert
(6) SORTING AND FOLDING SUPERVISOR to continue to follow
[2024-03-20 10:30] LABS: APTT 85.7 Sec (23.4-35.0)
[2024-03-20 10:34] LABS: ALT (SGPT) 22 U/L (0-50); AST (SGOT) 32 U/L (17-59); Albumin 2.2 g/dl (3.5-5.0); Alkaline Phosphatase 109 U/L (38-126); Direct Bilirubin 0.3 mg/dl (0.0-0.4); Total Bilirubin 0.5 mg/dl (0.2-1.3); Total Protein 4.9 g/dl (6.3-8.2)
--- NOTE | 2024-03-20 11:01 | W.PN.INTV ---
Today's Communication / Plan
Recommendations
Transfer to telemetry
Continue nocturnal CPAP
Complete 7 days of antibiotics
Advance diet
Follow H&H
Aspiration precautions
Heparin drip, hopefully transition to oral anticoagulants when able to tolerate diet.
Avoid sedatives
Assessment
-
Assessment: 69-year-old male with a past medical history of CVA with expressive aphasia/dysarthria, DM type II, former tobacco use disorder, hypertension and hyperlipidemia who presents with altered mental status. Patient was transferred from
[facility] via EMS and had been declining over the last 3 weeks. In the ER, patient febrile to 102.9 �F, tachycardic to 147, tachypneic to 24 breaths/min, BP 139/79 and SpO2 87% on nonrebreather. Labs showed leukocytosis to 15.2, anemia 11.6,
hyperglycemia to 234, elevated lactate of 2.8, 2+ urine ketones with no signs of UTI, and COVID antigen negative. Blood cultures were collected. Initial CXR showed suspected LLL pneumonia versus atelectasis. Unfortunately patient's respiratory
distress worsened and he was intubated in the ER. CTA of the chest performed showing a left lower lobe + RLL pneumonia with a small RUL-segmental PE with no evidence of RV strain. He was given antibiotics in the ER with vancomycin/Zosyn, started
on heparin drip, given 1L of NS 0.9%, and started on propofol for sedation. Patient admitted to the ICU for further care, and critical care services consulted for additional management/recommendations.
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
recent MRSA UTI
Impression:
#Acute respiratory failure with hypoxia on mechanical ventilation (intubated 03-17-2024 in ER)
#Multifocal pneumonia/HAP
#LLL atelectasis with mucous plugging - likely secondary to prolonged AMS prior to admission with aspiration and severe LLL pneumonia
#Acute pulmonary embolism without RV strain
#Hx of LLE DVT Dx on 03/08/2024
#Lactic acidosis
#Hyperglycemia
#Phimosis
#Chronic anemia (Hb baseline 12-13.5)
#Hx of CVA with residual expressive aphasia and dysarthria
Plan:
-
Extubated 03/19/2024
Currently off supplemental oxygen.
Continue nocturnal CPAP as the patient has history of obstructive sleep apnea
Aspiration precaution
Not in acute distress
-
Nebulizers as needed for secretion clearance. Has not been needed.
Not bronchospastic on exam.
-
Pneumonia:
Continue Abx - Zosyn. Complete total of 7 days. Okay to switch to Augmentin if able to tolerate orals.
-Sputum culture normal respiratory raad. Negative Legionella antigen. Influenza negative.
Blood cultures negative.
-
Acute pulmonary embolism without RV strain
DVT left lower extremity.
- Continue with systemic anticoagulation with heparin drip � eventual NOAC as per patient's insurance (case management can assist with this)
Follow PTT, therapeutic.
-
Mild hypernatremia.
Speech evaluation
Advance diet if able
May need tube feedings.
-
Hemodynamically stable without vasopressors.
Hypokalemia noted: Repleted. Labs to be repeated at 2 PM.
- Replete electrolytes with K>4, Mg>2
- Maintain euglycemia with goal BG 140-180
- Transfuse if needed to keep Hb>7, plt>20k
-
Anemia: No evidence for bleeding.
Repeat H&H.
Monitor for bleeding, particularly on heparin drip.
- DVT ppx
Will transfer to telemetry.
Critical care team will sign off.
Pulmonary will briefly follow for pulmonary embolism.

Data:
CTA Chest 03-17-2024:
Tiny right upper lobe pulmonary embolus. Minimal clot burden. No evidence of right heart strain.
Moderate left lower lobe pneumonia. New
Probable developing mild right lower lobe pneumonia
Intubation.
CT head 03-17-2024:
No acute intracranial abnormality noted.
Moderate atrophy. Stable
Moderate periventricular small vessel ischemic disease. Stable
Old bilateral thalamic infarcts. Stable
CXR 03-18-2024:
1. Endotracheal and orogastric tubes in normal position.
2. SEVERE ACUTE LEFT LOWER LOBE ATELECTASIS secondary to ACUTE MUCOUS PLUGGING in the LEFT LOWER LOBE BRONCHUS as seen on the CT examination performed 03/17/2024. Possible large left lower lobe pneumonia. Airway aspiration is a diagnostic
possibility.
3. Mild to moderate right to left mediastinal shift secondary to progressive volume loss in the left lower lobe which has increased since 03/17/2024 at 3:40 PM.
CXR 03-17-2024: New findings is a mild left lower lobe pneumonia versus atelectasis. Clinical and laboratory correlation recommended
Subjective Dataa
Subjective Data
Date of Service:
Date of Service: March 20, 2024
Chief Complaint: System Technologist Follow Up (Hypoxemic respiratory failure require mechanical ventilation) and Pneumonia Follow Up
Subjective:
Patient unable to provide history at baseline.
Extubated 03/19/2024, tolerated CPAP overnight.
No new events.
Review of Systems
General: Other (Unable to provide history aphasic at baseline)
Objective Data
Data Reviewed
Vital Signs / I&O / Oxygen:
Vital Signs
Temp Pulse Resp BP Pulse Ox
99.1 F 78 17 109/77 93
03/20/24 07:52 03/20/24 10:00 03/20/24 10:00 03/20/24 10:00 03/20/24 10:00
Intake and Output
03/19/24 03/20/24 03/21/24
06:59 06:59 06:59
Intake Total 3011.5 / 3168.0 1475.5 / 1485.5 40 / 40
Output Total 1375 / 1375 662 / 662 125 / 125
Balance 1636.5 / 1793.0 813.5 / 823.5 -85 / -85
SaO2 [A/C] 100
SaO2 93
Nasal Cannula flow liters per 2
minute
Physical Exam
General: Respiratory Distress (n)
HEENT: Normocephalic
Cardiovascular: S1-S2
Respiratory: Clear, Non-Labored Respirations and ET Tube (no secretions)
GI: Soft and Non Distended
Neurology: Awake, Alert and Other (Aphasic at baseline, unable to provide history. )
Skin: Warm
Labs/Micro/Reports
Lab Data
03/20/24 02:49
Laboratory Results
03/19/24 03/20/24 03/20/24
14:15 02:49 10:07
APTT 68.5 H 85.7 H
pH 7.46 H
pCO2 35
pO2 156 H
HCO3 24.9
O2 Delivery Level
Microbiology
03/17/24 16:22 Blood/Venous Blood Culture - Preliminary
No Growth in 48 hours- Final report to follow
03/18/24 02:17 Sputum Respiratory Culture - Preliminary
Usual Respiratory Raad
03/18/24 02:17 Sputum Gram Stain - Preliminary
03/17/24 22:44 Nose Nasal Screen MRSA (PCR) - Final
MRSA not detected - performed by PCR methodology.
03/17/24 23:55 Urine Legionella Urinary Antigen - Final
Negative for Legionella pneumophila Serogroup 1 antigen.
A negative result does not rule out the possiblity of
Legionella infection due to other serogroups or species of
Legionella. Clinical correlation is recommended.
03/17/24 16:22 Nasal Swab Influenza Types A & B (MARGOT) - Final
Negative for Influenza A & B, NAAT
Negative results must be combined with clinical observations
and patient history.
Nucleic Acid Amplification test (NAAT)performed on the
[employer] platform.
[2024-03-20 12:11] LABS: Glucose - Point of Care 80 mg/dl (70-99)
[2024-03-20] MEDS: 0.45% NACL with KCL 20 MEQ 1000 IV (12:16)
--- NOTE | 2024-03-20 13:44 | CM ---
CM following re: discharge planning.
Discussed in Rounds, reviewed pt's chart, met with pt.
Per Rounds meeting, Extubated yesterday 03/19/2024, currently off supplemental oxygen, continue nocturnal CPAP and pt will be downgraded from ICU level of care.
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 Pt is on bed hold at [facility].
Pt's clinical faxed to [facility] for a review.
D/C plan: return back to [facility] when medically stable.
CM will follow with discharge plan updates as hospitalization progresses
[2024-03-20] MEDS: LASIX 20 MG TUBE (16:26)
[2024-03-20] MEDS: COLACE LIQUID TUBE ×2 (16:26→20:59)
[2024-03-20] MEDS: PLAVIX 75 MG TUBE (16:27)
[2024-03-20] MEDS: ProAmatine TUBE (16:27)
[2024-03-20] MEDS: LYRICA TUBE (16:27)
[2024-03-20] MEDS: MIRALAX TUBE (16:27)
[2024-03-20 16:35] LABS: Hematocrit 26.3 % (39.0-52.0); Hemoglobin 8.4 g/dL (13.0-18.0)
[2024-03-20 16:42] LABS: APTT 92.7 Sec (23.4-35.0)
--- NOTE | 2024-03-20 17:20 | PTCARENOTE ---
Patient received in AM with assessment as noted. Continues minimally responsive, only weakly following directions and non-verbal. VS stable. NSR on monitor. Lungs decreased through out. Occasional loose cough. Sao2 97% on 2lnc. Failed swallow eval
in AM. Dobhoff feeding tube placed with good placement noted by auscultation and x-ray. No bowel movement today. Cabrera draining basil urine. For transfer to [address] and report called to Danisha on . Patient transferred via bed with meds,
belongings and chart.
[2024-03-20] MEDS: LIPITOR 40 MG TUBE (17:22)
[2024-03-20] MEDS: ProAmatine 5 MG TUBE (17:22)
[2024-03-20] MEDS: LYRICA 75 MG TUBE (17:22)
[2024-03-20 18:06] LABS: Glucose - Point of Care 61 mg/dl (70-99)
[2024-03-20] MEDS: DEXTROSE 50% SYRINGE 12.5 GRAMS IV (18:13)
[2024-03-20] MEDS: NOVOLOG FLEXPEN-HIGH RESISTANCE SC (18:19)
[2024-03-20 18:43] LABS: Glucose - Point of Care 98 mg/dl (70-99)
[2024-03-20 21:07] LABS: Glucose - Point of Care 77 mg/dl (70-99)
--- NOTE | 2024-03-20 22:34 | PTCARENOTE ---
Addendum entered by Vannesa Rivero RN 03/20/24 23:16:
With further discussion, CIRILO Wood instructed to place pt on CPAP HS as ordered, but also place video monitoring system in room. Respiratory notified. Continuous pulse ox remains in place
Original Note:
HOUSE MANAGER notified regarding pt's somnolent mentation and active CPAP order HS.
Instructed to hold CPAP tonight, keep pt on 2L NC. Pt placed on continuous pulse ox, SaO2 >95%.
--- NOTE | 2024-03-20 22:36 | PTCARENOTE ---
pt's HS blood sugar reading 77, CIRILO Pizano notified regarding active order of Lantus. Electronic order received to hold Lantus tonight
[2024-03-21] VITALS (8 sets, daily range): BP systolic 101–136; BP diastolic 63–78; PULSE 68–86; BMI 26.1
[2024-03-21] MEDS: DEXTROSE 50% SYRINGE 12.5 GRAMS IV (00:25)
[2024-03-21 00:26] LABS: Glucose - Point of Care 44 mg/dl (70-99)
[2024-03-21] MEDS: NOVOLOG FLEXPEN-HIGH RESISTANCE SC (00:33)
[2024-03-21 00:51] LABS: Glucose - Point of Care 101 mg/dl (70-99)
[2024-03-21] MEDS: 0.45% NACL with KCL 20 MEQ IV (00:53)
[2024-03-21] MEDS: D5W 1000 IV ×2 (00:59→18:30)
[2024-03-21 02:52] LABS: Glucose - Point of Care 108 mg/dl (70-99)
[2024-03-21] MEDS: ZOSYN 50 IV ×4 (04:01→21:28)
--- NOTE | 2024-03-21 04:05 | PTCARENOTE ---
received pt at change of shift on contact isolation precautions. day shift charge nurse made aware that pt is in a room with a roommate. day shift battery charger tester stated that admissions was made aware of different precautions between roommates. night
production supervisor off shift also made aware, pt remains in semi-private room at this time.
[2024-03-21 05:08] LABS: Glucose - Point of Care 111 mg/dl (70-99)
[2024-03-21] MEDS: HEPARIN 25000 UNITS/250 ML IV (05:16)
--- NOTE | 2024-03-21 05:41 | PTCARENOTE ---
Pt's AM blood sugar reading 111. Per Novolog high resistance protocol, 1 unit of insulin to be administered. CIRILO Pizano notified for concern of recent hypoglycemic event overnight. Received electronic order for insulin to be held
[2024-03-21 07:50] LABS: Hematocrit 26.1 % (39.0-52.0); Hemoglobin 8.3 g/dL (13.0-18.0); Mean Corp Hgb Conc. 31.8 g/dL (33.0-37.0); Mean Corpuscular Hgb 29.6 pg (27.0-31.0); Mean Corpuscular Volume 93.2 fL (80.0-94.0); Platelet Count 194 10^3/uL (130-400); Red Cell Dist. Width 14.3 % (11.5-14.5); White Blood Cell Count 8.9 10^3/uL (4.8-10.8)
[2024-03-21 07:59] LABS: Blood Urea Nitrogen 18 mg/dl (9-20); Calcium 7.8 mg/dl (8.4-10.2); Carbon Dioxide 27 mmol/L (22-30); Chloride 113 mmol/L (98-107); Estimated Creatinine Clearance 83 ml/min; Glucose 103 mg/dl (70-99); Potassium 3.3 mmol/L (3.5-5.1); Sodium 143 mmol/L (135-145); eGFR > 60.00
[2024-03-21] MEDS: LASIX 20 MG TUBE (08:23)
[2024-03-21] MEDS: LYRICA 50 MG TUBE (08:23)
[2024-03-21] MEDS: PLAVIX 75 MG TUBE (08:23)
[2024-03-21] MEDS: MIRALAX 17 GRAMS TUBE (08:24)
[2024-03-21] MEDS: COLACE LIQUID 100 MG TUBE ×2 (08:24→21:28)
[2024-03-21] MEDS: ProAmatine 5 MG TUBE ×2 (08:24→18:06)
[2024-03-21] MEDS: HEPARIN 5500 UNITS IV (08:30)
[2024-03-21 11:13] LABS: Glucose - Point of Care 122 mg/dl (70-99)
--- NOTE | 2024-03-21 12:45 | PTCARENOTE ---
Pt transferred to 334 d/t recent MRSA infection in urine 03/06. Report given to Jeannine Gibbs RN. VSS.
--- NOTE | 2024-03-21 13:24 | W.PN.HOSP.TC ---
Today's Communication/Plan
-
Start on tube feeds
Continue with antibiotics
Continue with IV heparin
Assessment / Plan
Assessment / Plan
#Acute hypoxic respiratory failure requiring intubation in the ED, likely multifactorial due to PE and HCAP
- CT chest- rounded pleural-based focus of consolidation in the posterior right lower lobe on image #69 which measures approximately 4.4 x 2.5 cm.. There are 2 small similar findings posterior and medially in the right lower lobe on image 45 and 47.
These findings are likely developing pneumonia in right lower lobe as well.
- cont respiratory care, Duo-Nebs prn
- Off of vent support and stable oxygenation caba on 2 L of oxygen via nasal cannula
-Not bacteremic. COVID/flu negative. Sputum culture pending. Legionella and streptococcal antigen negative. MRSA screen negative.
-cont IV Zosyn ; clinical concern is for aspiration pneumonia. Pt remains NPO .
-White count normalized.
#Small PE tiny thrombus in a segmental vessels supplying the right upper lobe
-cont Heparin gtt, monitor coags
- Will wait for swallow function to come back prior to swithing to oral AC
# Left superficial femoral vein thrombosis on recent admission-suspect PE from DVT.
#Anemia-drop in H&H noted without any obvious external bleeding. No rectal bleeding ,no hematemesis. Difficult historian so unable to localize if any bleeding source. In view of new anemia and significant drop a CT of the abdomen pelvis was
obtained and shows no intra-abdominal/retroperitoneal hemorrhage. His left thigh femur repair site looks clean without any hematoma. Continue to follow H&H- stable Aim to keep more than 7.
#Hypokalemia-replete
#Recent Acute left hip fracture. s/p left hip hemiarthroplasty on March 12, 2024. Stable, wound c/d/i at this time
- Plan at recent discharge was fpc with follow-up with orthopedics in 2 weeks.
#Recent MRSA bacteriuria/ possible UTI-was on doxycycline on discharge . UA neg on this adx - hold further abx from standpoint
# History of severe dysphagia - related to strokes. Was on modified diet. Speech therapist evaluation after extubation.
#History of CVA-continue with statins and Plavix
#Diabetes mellitus type 2-continue with sliding scale insulin. Hold Lantus.
#History essential hypertension-not on any medication in fact on midodrine.
Discussed with RN
DVT proph-hep gtt
Pt is Full Code
Total time spent on today's encounter was 52 minutes Case was discussed with nursing staff, All labs and imaging personally reviewed by me. Remainder the time spent in detailed review of previous records, lab data, imaging, and other medical
provider documentation.
Anticipated Discharge: > 48 hours
Subjective/Interval History
-
Date of Service: March 21, 2024
Patient is more responsive and awake
Doesnt converse.
Not following commands.
Objective Data
-
Labs:
Laboratory Results
03/21/24 03/21/24
07:29 15:00
WBC 8.9
Hgb 8.3 L
Hct 26.1 L
Plt Count 194
APTT 52.0 H Pending
Sodium 143
Potassium 3.3 L
Chloride 113 H
Carbon Dioxide 27
BUN 18
Creatinine 0.8
Glucose 103 H
Calcium 7.8 L
Vital Signs:
Vital Signs
Temp Pulse Resp BP Pulse Ox
98.6 F 64 16 120/64 100
03/21/24 11:17 03/21/24 11:17 03/21/24 11:17 03/21/24 11:17 03/21/24 11:17
I&O
03/20/24 03/21/24 03/22/24
06:59 06:59 06:59
Intake Total 1475.5 / 1485.5 1490 / 1490
Output Total 662 / 662 1425 / 1425
Balance 813.5 / 823.5 65 / 65
Review of Systems
-
Unable to obtain full review of systems at this time due to: Other (due to speech issues)
Physical Exam
-
General: No Apparent Distress
HEENT: Moist Mucous Membranes
Respiratory: Clear to Auscultation (anteriorly) and Non Labored Respirations; Negative Accessory Resp Muscle Use
Cardiac: Regular Rhythm and S1/S2
GI: Soft and Other (NG tube)
Neuro: Awake; Negative Alert (but improved consiciousness)
Psych: Calm
Data Reviewed
-
Labs: Labs Reviewed by me
[2024-03-21] MEDS: KCL ELIXIR 40 MEQ TUBE (13:59)
--- NOTE | 2024-03-21 14:40 | W.PN.UPDATE ---
Update Note
Progress Note Update
Cabrera was placed in ED [not on my order].
I saw patient for iatrogenic paraphimosis [now reduced]
As pt is now out of critical condition, Cabrera can be removed in AM -- order entered.
--- NOTE | 2024-03-21 15:25 | W.PN.PUL3 ---
Today's Communication / Plan
-
Continue antibiotics for possible pneumonia, consider transition to oral antibiotic
Remains on heparin therapy, eventual transition to oral anticoagulation
Anticoagulation for at least 3 months
Consider follow-up with pulmonary in 3 months or hematology to determine long-term plans for anticoagulation
Aspiration precautions. Dobbhoff tube in place
We will sign off. Please call with questions
Assessment
-
Assessment: 69-year-old male with a past medical history of CVA with expressive aphasia/dysarthria, DM type II, former tobacco use disorder, hypertension and hyperlipidemia who presents with altered mental status. Patient was transferred from
[facility] via EMS and had been declining over the last 3 weeks. In the ER, patient febrile to 102.9 �F, tachycardic to 147, tachypneic to 24 breaths/min, BP 139/79 and SpO2 87% on nonrebreather. Labs showed leukocytosis to 15.2, anemia 11.6,
hyperglycemia to 234, elevated lactate of 2.8, 2+ urine ketones with no signs of UTI, and COVID antigen negative. Blood cultures were collected. Initial CXR showed suspected LLL pneumonia versus atelectasis. Unfortunately patient's respiratory
distress worsened and he was intubated in the ER. CTA of the chest performed showing a left lower lobe + RLL pneumonia with a small RUL-segmental PE with no evidence of RV strain. He was given antibiotics in the ER with vancomycin/Zosyn, started
on heparin drip, given 1L of NS 0.9%, and started on propofol for sedation. Patient admitted to the ICU for further care, and critical care services consulted for additional management/recommendations.
Chronic conditions EDUCATIONAL ADVISER: Hypertension, hyperlipidemia, former tobacco use disorder, history of embolic CVA with expressive aphasia/dysarthria, DM type II, history of alcohol abuse, anxiety/depression, impaired vision, stress incontinence, Hx of
recent MRSA UTI
Impression:
#Acute respiratory failure with hypoxia on mechanical ventilation (intubated 03-17-2024 in ER)
#Multifocal pneumonia/HAP
#LLL atelectasis with mucous plugging - likely secondary to prolonged AMS prior to admission with aspiration and severe LLL pneumonia
#Acute pulmonary embolism without RV strain
#Hx of LLE DVT Dx on 03/08/2024
#Lactic acidosis
#Hyperglycemia
#Phimosis
#Chronic anemia (Hb baseline 12-13.5)
#Hx of CVA with residual expressive aphasia and dysarthria
Plan:
At this time, patient appears to be comfortable without any respiratory distress
Remains on nasal cannula, 100% saturation
Extubated 03/19/2024
Moving forward
Continue nocturnal CPAP as the patient has history of obstructive sleep apnea
Aspiration precaution
Nebulizers as needed for secretion clearance. Has not been needed.
Not bronchospastic on exam.
Continue Abx - Zosyn. Complete total of 7 days. Okay to switch to Augmentin if able to tolerate orals, Dobbhoff tube in place at this time.
Acute pulmonary embolism without RV strain
DVT left lower extremity.
Continue with systemic anticoagulation with heparin drip � eventual NOAC as per patient's insurance (case management can assist with this)
Follow PTT, therapeutic.
Dobbhoff tube in place
Speech evaluation as indicated
Disposition efforts
Follow-up imaging as indicated clinically
We will sign off. Please call with questions

Data:
CTA Chest 03-17-2024:
Tiny right upper lobe pulmonary embolus. Minimal clot burden. No evidence of right heart strain.
Moderate left lower lobe pneumonia. New
Probable developing mild right lower lobe pneumonia
Intubation.
CT head 03-17-2024:
No acute intracranial abnormality noted.
Moderate atrophy. Stable
Moderate periventricular small vessel ischemic disease. Stable
Old bilateral thalamic infarcts. Stable
CXR 03-18-2024:
1. Endotracheal and orogastric tubes in normal position.
2. SEVERE ACUTE LEFT LOWER LOBE ATELECTASIS secondary to ACUTE MUCOUS PLUGGING in the LEFT LOWER LOBE BRONCHUS as seen on the CT examination performed 03/17/2024. Possible large left lower lobe pneumonia. Airway aspiration is a diagnostic
possibility.
3. Mild to moderate right to left mediastinal shift secondary to progressive volume loss in the left lower lobe which has increased since 03/17/2024 at 3:40 PM.
CXR 03-17-2024: New findings is a mild left lower lobe pneumonia versus atelectasis. Clinical and laboratory correlation recommended
Subjective Data
-
Date of Service:
Date of Service: March 21, 2024
Subjective:
Patient unable to provide history. Appears to be comfortable. Dobbhoff tube in place. Family at bedside. 100% on nasal cannula
Objective Data
Data Reviewed
Vital Signs / I&O / Oxygen:
Vital Signs
Temp Pulse Resp BP Pulse Ox
98.6 F 64 16 120/64 100
03/21/24 11:17 03/21/24 11:17 03/21/24 11:17 03/21/24 11:17 03/21/24 11:17
Intake and Output
03/20/24 03/21/24 03/22/24
06:59 06:59 06:59
Intake Total 1475.5 / 1485.5 1490 / 1490
Output Total 662 / 662 1425 / 1425
Balance 813.5 / 823.5 65 / 65
SaO2 [A/C] 100
SaO2 100
Nasal Cannula flow liters per 2
minute
Physical Exam
General: Comfortable
HEENT: Normocephalic and Anicteric
Cardiovascular: S1-S2, Regular Rhythm, Murmur (n) and Rub (n)
Respiratory: Wheeze (n), Crackles (n), Rhonchi (n) and Other (Decreased at base)
GI: Soft, Non Distended, Non Tender and Feeding Tube (Dobbhoff tube)
Neurology: Lethargic (Opens eyes, does not follow commands)
Skin: Cyanosis (n), Jaundice (n) and Rash (n)
Labs/Micro/Reports
Lab Data
03/21/24 07:29
03/21/24 07:29
Laboratory Results
03/20/24 03/21/24
16:23 07:29
APTT 92.7 H 52.0 H
Microbiology
03/17/24 16:22 Blood/Venous Blood Culture - Preliminary
No Growth in 72 hours- Final report to follow
03/18/24 02:17 Sputum Respiratory Culture - Final
Usual Respiratory Nelly
03/18/24 02:17 Sputum Gram Stain - Final
[2024-03-21 16:33] LABS: APTT > 200 Sec (23.4-35.0)
[2024-03-21 17:27] LABS: Glucose - Point of Care 178 mg/dl (70-99)
[2024-03-21] MEDS: LIPITOR 40 MG TUBE (18:06)
[2024-03-21] MEDS: LYRICA 75 MG TUBE (18:07)
[2024-03-21] MEDS: NOVOLOG FLEXPEN-HIGH RESISTANCE 2 UNITS SC (18:47)
[2024-03-22] VITALS (7 sets, daily range): BP systolic 92–119; BP diastolic 61–67; PULSE 87
[2024-03-22 00:13] LABS: Glucose - Point of Care 240 mg/dl (70-99)
[2024-03-22] MEDS: NOVOLOG FLEXPEN-HIGH RESISTANCE 4 UNITS SC (00:19)
[2024-03-22 01:20] LABS: APTT 85.9 Sec (23.4-35.0)
[2024-03-22] MEDS: HEPARIN 25000 UNITS/250 ML IV (04:25)
[2024-03-22] MEDS: ZOSYN 50 IV ×2 (04:27→09:06)
[2024-03-22 05:58] LABS: Glucose - Point of Care 258 mg/dl (70-99)
[2024-03-22] MEDS: NOVOLOG FLEXPEN-HIGH RESISTANCE 7 UNITS SC ×3 (06:17→18:08)
[2024-03-22 07:34] LABS: Hematocrit 26.4 % (39.0-52.0); Hemoglobin 8.5 g/dL (13.0-18.0); Mean Corp Hgb Conc. 32.2 g/dL (33.0-37.0); Mean Corpuscular Hgb 29.6 pg (27.0-31.0); Mean Platelet Volume 11.4 fL (7.4-10.4); Platelet Count 193 10^3/uL (130-400); Red Blood Cell Count 2.87 10^6/uL (4.70-6.10); Red Cell Dist. Width 13.9 % (11.5-14.5); White Blood Cell Count 7.3 10^3/uL (4.8-10.8)
[2024-03-22 07:57] LABS: Blood Urea Nitrogen 19 mg/dl (9-20); Calcium 7.5 mg/dl (8.4-10.2); Carbon Dioxide 26 mmol/L (22-30); Chloride 108 mmol/L (98-107); Estimated Creatinine Clearance 83 ml/min; Glucose 215 mg/dl (70-99); Potassium 3.2 mmol/L (3.5-5.1); Sodium 138 mmol/L (135-145); eGFR > 60.00
[2024-03-22 08:05] LABS: APTT 76.3 Sec (23.4-35.0)
[2024-03-22] MEDS: ProAmatine 5 MG TUBE ×2 (09:05→18:07)
[2024-03-22] MEDS: LYRICA 50 MG TUBE (09:05)
[2024-03-22] MEDS: COLACE LIQUID 100 MG TUBE (09:05)
[2024-03-22] MEDS: PLAVIX 75 MG TUBE (09:06)
--- NOTE | 2024-03-22 09:49 | W.PN.URO.CBU ---
Today's Communication / Plan
-
Cabrera out
will sign off
Assessment / Plan
-
paraphimosis -- corrected
Diagnosis
-
Date of Service: March 22, 2024
-
Patient Diagnosis:
paraphimosis s/p manual reduction 03/18
Subjective
-
asleep
Objective
-
Vital Signs
Temp Pulse Resp BP Pulse Ox
97.9 F 94 18 92/62 99
03/22/24 07:00 03/22/24 07:00 03/22/24 07:00 03/22/24 07:00 03/22/24 07:00
Intake and Output
03/21/24 03/22/24 03/23/24
06:59 06:59 06:59
Intake Total 1490 / 1490 2004
Output Total 1425 / 1425
Balance 65 / 65 2004
Intake:
IV fluids (Total) 1290 / 1290 310 / 310
0.45% NACL with KCL 20 MEQ 20 200 / 200
meq In 1,000 ml @ 80 mls/hr IV
.[id number] SHIVANI Rx#:[id number]
heparin 80 / 80
IV piggybacks 200 / 200 220 / 220
Tube feeding 1205 / 1205
Feeding tube flush amount 270 / 270
Output:
Urine, Cabrera 1425 / 1425
Other:
How many times incontinent 1
MODERATE amount urine
How many times incontinent 1
SATURATED amount urine
Laboratory Results
03/22/24 07:14
03/22/24 07:14
Physical Exam
-
General - calm; NGT in place
--- NOTE | 2024-03-22 09:58 | WOUNDNOTE ---
WOC RN note: Anastacio Humphrey re: air mattress recommended at SNF if not already in place; patient has sacral and heel DTI pressure injuries.
[2024-03-22] MEDS: LASIX TUBE (10:53)
[2024-03-22] MEDS: MIRALAX TUBE (10:54)
[2024-03-22 12:18] LABS: Glucose - Point of Care 260 mg/dl (70-99)
--- NOTE | 2024-03-22 14:19 | W.PN.HOSP.TC ---
Today's Communication/Plan
-
Switch antibiotics to oral Augmentin.
Replete potassium.
Continue to speech therapy.
Continue with IV heparin.
Assessment / Plan
Assessment / Plan
#Acute hypoxic respiratory failure requiring intubation in the ED, likely multifactorial due to PE and HCAP
- CT chest- rounded pleural-based focus of consolidation in the posterior right lower lobe on image #69 which measures approximately 4.4 x 2.5 cm.. There are 2 small similar findings posterior and medially in the right lower lobe on image 45 and 47.
These findings are likely developing pneumonia in right lower lobe as well.
- cont respiratory care, Duo-Nebs prn
- Off of vent support and remains stable oxygenation caba on 2 L of oxygen via nasal cannula
-Not bacteremic. COVID/flu negative. Sputum culture Shows usual respiratory raad. Legionella and streptococcal antigen negative. MRSA screen negative.
- clinical concern is for aspiration pneumonia. Pt remains NPO . patient afebrile. Hemodynamically stable. White count normalized. Will switch antibiotics to oral Augmentin.
- cw speech therapies
#Small PE tiny thrombus in a segmental vessels supplying the right upper lobe
-cont Heparin gtt, monitor coags
- Will wait for swallow function to come back prior to switching to oral AC
# Left superficial femoral vein thrombosis on recent admission-suspect PE from DVT.
#Anemia-drop in H&H noted without any obvious external bleeding. No rectal bleeding ,no hematemesis. Difficult historian so unable to localize if any bleeding source. In view of new anemia and significant drop a CT of the abdomen pelvis was
obtained and shows no intra-abdominal/retroperitoneal hemorrhage. His left thigh femur repair site looks clean without any hematoma. Continue to follow H&H- stable. Aim to keep more than 7.
#Hypokalemia-replete
#Recent Acute left hip fracture. s/p left hip hemiarthroplasty on March 12, 2024. Stable, wound c/d/i at this time
- Plan at recent discharge was residential with follow-up with orthopedics in 2 weeks.
#Recent MRSA bacteriuria/ possible UTI-was on doxycycline on discharge . UA neg on this adx - hold further abx from standpoint
# History of severe dysphagia - related to strokes. Was on modified diet. Speech therapist evaluation after extubation.
#History of CVA-continue with statins and Plavix
#Diabetes mellitus type 2-continue with sliding scale insulin. Hold Lantus.
#History essential hypertension-not on any medication in fact on midodrine.
Discussed with RN
DVT proph-hep gtt
Pt is Full Code
Anticipated Discharge: 24 - 48 hours
Subjective/Interval History
-
Date of Service: March 22, 2024
Patient opens eyes to his name. Mumbles incomprehensible words.
Objective Data
-
Labs:
Laboratory Results
03/22/24
07:14
WBC 7.3
Hgb 8.5 L
Hct 26.4 L
Plt Count 193
APTT 76.3 H
Sodium 138
Potassium 3.2 L
Chloride 108 H
Carbon Dioxide 26
BUN 19
Creatinine 0.8
Glucose 215 H
Calcium 7.5 L
Vital Signs:
Vital Signs
Temp Pulse Resp BP Pulse Ox
97.7 F 75 16 114/62 94
03/22/24 11:00 03/22/24 11:00 03/22/24 11:00 03/22/24 11:00 03/22/24 11:00
I&O
03/21/24 03/22/24 03/23/24
06:59 06:59 06:59
Intake Total 1490 / 1490 2004
Output Total 1425 / 1425
Balance 65 / 65 2004
Review of Systems
-
Unable to obtain full review of systems at this time due to: Other (due to prior speech disturbances and language barrier)
Physical Exam
-
General: No Apparent Distress
HEENT: Moist Mucous Membranes
Respiratory: Clear to Auscultation (anteriorly), Non Labored Respirations and Accessory Resp Muscle Use
Cardiac: Regular Rhythm and S1/S2; Negative Tachycardic
GI: Soft
Neuro: Awake; Negative Alert
Psych: Calm
Data Reviewed
-
Labs: Labs Reviewed by me
--- NOTE | 2024-03-22 14:35 | CM ---
Addendum entered by Margarita Humphrey 03/22/24 15:00:
Spoke with Yaa at [facility] [phone]
Aware pt will need an air mattress when he returns to facility
Aware pt is not ready for d/c today
Original Note:
Case management following for d/c planning
Pt from [facility] - [facility] - plan is to return when medically stable
Pt will need an air mattress at facility - re - sacral and heel DTI PI
Case management will cont to follow for d/c needs
Plan - return to [facility] when medically ready
[2024-03-22] MEDS: KCL ELIXIR 40 MEQ TUBE (16:00)
[2024-03-22 17:56] LABS: Glucose - Point of Care 272 mg/dl (70-99)
[2024-03-22] MEDS: LYRICA 75 MG TUBE (18:07)
[2024-03-22] MEDS: LIPITOR 40 MG TUBE (18:07)
[2024-03-22 22:01] LABS: Glucose - Point of Care 306 mg/dl (70-99)
[2024-03-22] MEDS: LANTUS 0.140000000000000013 UNITS SC (22:17)
[2024-03-22] MEDS: AUGMENTIN 875 MG/125 MG 1 TABLET TUBE (22:18)
[2024-03-22] MEDS: COLACE LIQUID TUBE (22:18)
[2024-03-23 00:19] LABS: Glucose - Point of Care 333 mg/dl (70-99)
[2024-03-23] MEDS: NOVOLOG FLEXPEN-HIGH RESISTANCE 10 UNITS SC ×2 (00:35→11:41)
[2024-03-23 03:37] VITALS: BP 97/54
[2024-03-23] MEDS: HEPARIN 25000 UNITS/250 ML IV (04:56)
[2024-03-23 06:43] LABS: Hematocrit 27.4 % (39.0-52.0); Mean Corp Hgb Conc. 32.8 g/dL (33.0-37.0); Mean Corpuscular Hgb 29.6 pg (27.0-31.0); Mean Corpuscular Volume 90.1 fL (80.0-94.0); Mean Platelet Volume 11.7 fL (7.4-10.4); Platelet Count 227 10^3/uL (130-400); Red Blood Cell Count 3.04 10^6/uL (4.70-6.10); Red Cell Dist. Width 14.4 % (11.5-14.5); White Blood Cell Count 7.2 10^3/uL (4.8-10.8)
[2024-03-23 06:45] LABS: Glucose - Point of Care 367 mg/dl (70-99)
[2024-03-23] MEDS: NOVOLOG FLEXPEN-HIGH RESISTANCE 12 UNITS SC (06:47)
[2024-03-23 06:54] LABS: APTT 69.2 Sec (23.4-35.0)
[2024-03-23 07:00] VITALS: BP 109/63
[2024-03-23 07:11] LABS: Triglycerides 135 mg/dl (10-149)
[2024-03-23] MEDS: HEPARIN 2700 UNITS IV (07:15)
--- NOTE | 2024-03-23 09:10 | PTOTSP ---
Speech Language Pathology
Pt seen for dysphagia tx. P.O. trials of moderately thick liquids via tsp and puree provided. Decreased stripping of bolus from spoon noted, but this improved as trials progressed. Also with bolus holding on 1st trial, but oral manipulation
became more timely as trials progressed. No overt signs of aspiration, but pt is at a high risk for aspiration with known chronic dysphagia and admit at this time for respiratory failure.
Recommend:
(1) Continued NPO
(2) VSE
(3) Oral care 4x/day with suctioning as needed
(4) Will determine appropriateness for Aspiration Risk Hydration Protocol (ARHP) pending VSE
(5) Non-oral meds
(6) LETTER[employer] PRINTING MACHINIST to continue to follow
[2024-03-23] MEDS: ProAmatine 5 MG TUBE ×2 (10:03→17:54)
[2024-03-23] MEDS: PLAVIX 75 MG TUBE (10:03)
[2024-03-23] MEDS: AUGMENTIN 875 MG/125 MG 1 TABLET TUBE ×2 (10:04→23:39)
[2024-03-23] MEDS: MIRALAX TUBE (10:04)
[2024-03-23] MEDS: COLACE LIQUID 100 MG TUBE ×2 (10:04→23:39)
--- NOTE | 2024-03-23 10:53 | W.PN.HOSP.TC ---
Addendum entered and electronically signed by Mo Johns MD 03/23/24 17:55:
DTI sacrum
DTI b/l heels
Left great toe/Left 5th toe necrotic ulcers suspect r/t PAD, trauma
CW wound care
Pt on presented was noted to have change in MS with lethargy sec to TME secondary to infection .
Original Note:
Today's Communication/Plan
-
VSE today
Assessment / Plan
Assessment / Plan
#Acute hypoxic respiratory failure requiring intubation in the ED, likely multifactorial due to PE and HCAP
- CT chest- rounded pleural-based focus of consolidation in the posterior right lower lobe on image #69 which measures approximately 4.4 x 2.5 cm.. There are 2 small similar findings posterior and medially in the right lower lobe on image 45 and 47.
These findings are likely developing pneumonia in right lower lobe as well.
- cont respiratory care, Duo-Nebs prn
- Off of vent support and remains stable oxygenation caba on 2 L of oxygen via nasal cannula
-Not bacteremic. COVID/flu negative. Sputum culture Shows usual respiratory raad. Legionella and streptococcal antigen negative. MRSA screen negative.
- clinical concern is for aspiration pneumonia. Pt remains NPO . patient afebrile. Hemodynamically stable. White count normalized. switched antibiotics to oral Augmentin.
- cw speech therapies
#Small PE tiny thrombus in a segmental vessels supplying the right upper lobe
-cont Heparin gtt, monitor coags
- Will wait for swallow function to come back prior to switching to oral AC
# Left superficial femoral vein thrombosis on recent admission-suspect PE from DVT.
#Anemia-drop in H&H noted without any obvious external bleeding. No rectal bleeding ,no hematemesis. Difficult historian so unable to localize if any bleeding source. In view of new anemia and significant drop a CT of the abdomen pelvis was
obtained and shows no intra-abdominal/retroperitoneal hemorrhage. His left thigh femur repair site looks clean without any hematoma. Continue to follow H&H- stable. Aim to keep more than 7.
#Diabetes mellitus type 2- Hyperglycemia since going on tube feeds. Lasix dose uptitrated. Started on NovoLog 3 units every 6 hours. Once he is back on oral diet will hold his every 6 hours insulin ,do a sliding scale and once oral intake is
adequate then have a scheduled nutritional insulin.
#Recent Acute left hip fracture. s/p left hip hemiarthroplasty on March 12, 2024. Stable, wound c/d/i at this time
- Plan at recent discharge was correction with follow-up with orthopedics in 2 weeks.
#Recent MRSA bacteriuria/ possible UTI-was on doxycycline on discharge . UA neg on this adx - hold further abx from standpoint
# History of severe dysphagia - related to strokes. Was on modified diet. Speech therapist evaluation ongoing.
#History of CVA-continue with statins and Plavix
#History essential hypertension-not on any medication in fact on midodrine.
Discussed with RN
DVT proph-hep gtt
Pt is Full Code
VSE today.
Anticipated Discharge: > 48 hours
Subjective/Interval History
-
Date of Service: March 23, 2024
More alert today. Mumbles words. Open eyes to commands.
Objective Data
-
Labs:
Laboratory Results
03/23/24 03/23/24
06: 13:15
WBC 7.2
Hgb 9.0 L
Hct 27.4 L
Plt Count 227
APTT 69.2 H Pending
Vital Signs:
Vital Signs
Temp Pulse Resp BP Pulse Ox
98.3 F 85 16 109/63 97
03/23/24 07:00 03/23/24 07:00 03/23/24 07:00 03/23/24 10:03 03/23/24 07:00
I&O
03/22/24 03/23/24 03/24/24
06:59 06:59 06:59
Intake Total 20045 / 1045
Output Total
Balance 2004
Review of Systems
-
Unable to obtain full review of systems at this time due to: Other (due to speech impairment )
Physical Exam
-
General: No Apparent Distress
HEENT: Moist Mucous Membranes
Respiratory: Clear to Auscultation (Anteriorly)
Cardiac: Regular Rhythm and S1/S2
GI: Soft
Neuro: Awake; Negative Alert
Psych: Calm
Data Reviewed
-
Labs: Labs Reviewed by me
[2024-03-23] MEDS: NOVOLOG FLEXPEN 3 UNITS SC ×2 (11:42→17:55)
[2024-03-23 11:50] LABS: Glucose - Point of Care 313 mg/dl (70-99)
[2024-03-23 13:10] LABS: APTT 74.5 Sec (23.4-35.0)
--- NOTE | 2024-03-23 13:36 | PTOTSP ---
Video Swallow Examination
Complete epiglottic inversion, anterior hyoid movement and PES opening.
Patient's level of arousal remains a detriment to safe oral intake at this time.
Recommend
1. NPO until patient is able to maintain alertness for more sustained period of time.
2. Once more alert, initiate IDDSI 4/Moderately thick liquids.
3. Meds crushed in applesauce.
4. Supervision/assist with feeding
5. Make sure patient swallows before next mouthful.
ST will follow
[2024-03-23] MEDS: LYRICA TUBE (13:39)
[2024-03-23 15:02] VITALS: BP 107/67
[2024-03-23] MEDS: LIPITOR 40 MG TUBE (17:54)
[2024-03-23] MEDS: NOVOLOG FLEXPEN-HIGH RESISTANCE 7 UNITS SC ×2 (17:55→23:46)
[2024-03-23 17:56] LABS: Glucose - Point of Care 283 mg/dl (70-99)
[2024-03-23 19:00] VITALS: BP 134/72
[2024-03-23 21:47] LABS: APTT 95.7 Sec (23.4-35.0)
[2024-03-23 22:08] VITALS: PULSE 79
[2024-03-23 22:20] LABS: Glucose - Point of Care 276 mg/dl (70-99)
[2024-03-23] MEDS: LANTUS 0.280000000000000027 UNITS SC (23:39)
[2024-03-23 23:50] VITALS: BP 133/72
[2024-03-24] MEDS: NOVOLOG FLEXPEN 3 UNITS SC (00:18)
[2024-03-24 00:37] LABS: Glucose - Point of Care 286 mg/dl (70-99)
[2024-03-24] MEDS: HEPARIN 25000 UNITS/250 ML IV (03:03)
[2024-03-24 06:23] LABS: Glucose - Point of Care 334 mg/dl (70-99)
--- NOTE | 2024-03-24 06:44 | PTCARENOTE ---
Pt removed Dobhoff despite medsitter appox 0630. Pt alert most of the night, able to communicate simple needs and complaints. SAFETY GROOVING MACHINE OPERATOR aware. Dayshift will discuss about continuation of Dobhoff and diabetes management.
--- NOTE | 2024-03-24 06:45 | W.PN.UPDATE ---
Update Note
Progress Note Update
RN notified HISTOLOGY TECHNOLOGIST, patient pulled Dobhuff tube out, and blood sugar is 334. will update attending in AM to evaluate and replace if needed, will hold off insulin. Patient is less lethargic per nursing. stable VS
[2024-03-24 07:00] VITALS: BP 136/75
[2024-03-24 07:18] LABS: APTT 82.4 Sec (23.4-35.0)
--- NOTE | 2024-03-24 08:55 | CM ---
Patient from [facility], plan remains for her to return when medically stable as long as she is at baseline. Will review functional status/PT/OT notes prior to transfer back.
Plan: Case management will continue to follow and assist with discharge planning. [facility] when stable medically.
[2024-03-24 10:06] LABS: Glucose - Point of Care 340 mg/dl (70-99)
[2024-03-24] MEDS: PLAVIX 75 MG TUBE (10:21)
[2024-03-24] MEDS: AUGMENTIN 875 MG/125 MG 1 TABLET TUBE ×2 (10:22→22:42)
[2024-03-24] MEDS: ProAmatine TUBE (10:22)
[2024-03-24] MEDS: MIRALAX TUBE (10:43)
[2024-03-24] MEDS: COLACE LIQUID TUBE (10:43)
--- NOTE | 2024-03-24 10:56 | PTOTSP ---
Speech Therapy
Presentation: Patient was intermittently lethargic but alert enough to participate with verbal cues. Patient was seen positioned upright in his bed.
Swallowing Function: TRIM OPERATOR presented patient with honey thick liquids via tsp and puree solids via tsp in which patient appeared to tolerate as he did not exhibit any overt clinical s/sx of aspiration. Patient did, of note, demonstrate decreased oral
coordination as he was unable to pull the bolus from the tsp but when the tsp touched his top lip, patient was able to coordinate the musculature to pull the bolus from the spoon. TRIM OPERATOR educated RN on recommendations, findings, and strategies to
assist with PO intake in which RN verbalized an understanding.
TRIM OPERATOR observed patient with medications administered crushed in puree in which patient appeared to tolerate.
Recommendations:
1) IDDSI Levle 4; puree solids and moderately (honey) thick liquids via tsp
2) FULL assistance and supervision with PO
3) Utilization of using spoon to assist patient with oral coordination with PO trials
4) Medications as tolerated (crushed in puree)
5) Aspiration precautions
6) Vigorous oral care
Plan: TRIM OPERATOR will continue to follow; pending hospitalization.
[2024-03-24] MEDS: NOVOLOG FLEXPEN-HIGH RESISTANCE SC (11:07)
[2024-03-24] MEDS: NOVOLOG FLEXPEN-HIGH RESISTANCE 12 UNITS SC (11:08)
[2024-03-24] MEDS: NOVOLOG FLEXPEN SC (11:08)
[2024-03-24] MEDS: ELIQUIS 5 MG PO ×2 (11:12→22:43)
[2024-03-24 12:33] LABS: Glucose - Point of Care 302 mg/dl (70-99)
[2024-03-24 12:43] VITALS: BP 130/80; BP 140/86; PULSE 96; O2SAT 94
--- NOTE | 2024-03-24 13:14 | W.PN.URO.CBU ---
Today's Communication / Plan
-
wull sign off
Assessment / Plan
-
paraphimosis -- corrected
Diagnosis
-
Date of Service: March 24, 2024
-
Patient Diagnosis:
Post Op Day:
Patient Diagnosis:
paraphimosis s/p manual reduction 03/18
Subjective
-
no gu complaints
Objective
-
Vital Signs
Temp Pulse Resp BP Pulse Ox
98.2 F 82 16 136/75 95
03/24/24 07:00 03/24/24 07:00 03/24/24 07:00 03/24/24 07:00 03/24/24 07:00
Intake and Output
03/23/24 03/24/24 03/25/24
06:59 06:59 06:59
Intake Total 2250 / 2250
Output Total 0 / 0 1100 / 1100
Balance 0 / 0 1150 / 1150
Intake:
IV piggybacks 120 / 120
Tube feeding 1400 / 1400
Feeding tube flush amount 730 / 730
Output:
Urine, Voided 0 / 0 1100 / 1100
Other:
How many times incontinent 1
MODERATE amount urine
Laboratory Results
03/23/24 06:24
03/22/24 07:14
Review of Systems
-
: No Symptoms
Physical Exam
-
General - well developed, well nourished, no acute distress
Chest - clear bilaterally
Abdomen - soft, non-tender, positive bowel sounds, no CVAT, no incisional pain or distention
Genitalia - normal
Rectal - normal
Skin - warm & dry with no rash
Neuro - AOx3, no motor deficits
Extremities - no clubbing, no cyanosis, no edema
Incision - clean, dry
Dressing - clean, dry, intact
[2024-03-24] MEDS: NOVOLOG FLEXPEN-HIGH RESISTANCE 10 UNITS SC (13:25)
--- NOTE | 2024-03-24 14:36 | W.PN.HOSP.TC ---
Today's Communication/Plan
-
Started on oral diet
Started on oral Eliquis
Assessment / Plan
Assessment / Plan
#Acute hypoxic respiratory failure requiring intubation in the ED, likely multifactorial due to PE and HCAP
- CT chest- rounded pleural-based focus of consolidation in the posterior right lower lobe on image #69 which measures approximately 4.4 x 2.5 cm.. There are 2 small similar findings posterior and medially in the right lower lobe on image 45 and 47.
These findings are likely developing pneumonia in right lower lobe as well.
- cont respiratory care, Duo-Nebs prn
- Off of vent support and remains stable oxygenation caba on 2 L of oxygen via nasal cannula
-Not bacteremic. COVID/flu negative. Sputum culture Shows usual respiratory raad. Legionella and streptococcal antigen negative. MRSA screen negative.
- clinical concern is for aspiration pneumonia . patient afebrile. Hemodynamically stable. White count normalized. switched antibiotics to oral Augmentin.
- cw speech therapies -cleared for IDDSI 4 /Mod thick liquids
- He pulled his NG out ;more awake to have oral diet .
#Small PE tiny thrombus in a segmental vessels supplying the right upper lobe
-Switch to oral Eliquis now that he is on oral diet
# Left superficial femoral vein thrombosis on recent admission-suspect PE from DVT.
#Anemia-drop in H&H noted without any obvious external bleeding. No rectal bleeding ,no hematemesis. Difficult historian so unable to localize if any bleeding source. In view of new anemia and significant drop a CT of the abdomen pelvis was
obtained and shows no intra-abdominal/retroperitoneal hemorrhage. His left thigh femur repair site looks clean without any hematoma. Continue to follow H&H- stable. Aim to keep more than 7.
#Diabetes mellitus type 2- Hyperglycemia since going on tube feeds. Lantus dose uptitrated. cw SSI for now and Introduce nutritional insulin depending on oral intake.
#Recent Acute left hip fracture. s/p left hip hemiarthroplasty on March 12, 2024. Stable, wound c/d/i at this time
- Plan at recent discharge was fpc with follow-up with orthopedics in 2 weeks.
#Recent MRSA bacteriuria/ possible UTI-was on doxycycline on discharge . UA neg on this adx - hold further abx from standpoint
# History of severe dysphagia - related to strokes. Was on modified diet. Speech therapist evaluation ongoing.
#History of CVA-continue with statins and Plavix
#History essential hypertension-not on any medication in fact on midodrine.
Discussed with RN
DVT proph-hep gtt
Pt is Full Code
Anticipated Discharge: 24 - 48 hours
Subjective/Interval History
-
Date of Service: March 24, 2024
Pulled G-tube out last night.
Patient is little more alert and responsive today.
Objective Data
-
Labs:
Laboratory Results
03/24/24
06:48
APTT 82.4 H
Vital Signs:
Vital Signs
Temp Pulse Resp BP Pulse Ox
98.2 F 82 16 136/75 95
03/24/24 07:00 03/24/24 07:00 03/24/24 07:00 03/24/24 07:00 03/24/24 07:00
I&O
03/23/24 03/24/24 03/25/24
06:59 06:59 06:59
Intake Total 2250 / 2250
Output Total 0 / 0 1100 / 1100
Balance 0 / 0 1150 / 1150
Review of Systems
-
Unable to obtain full review of systems at this time due to: Patient Non-verbal
Physical Exam
-
General: No Apparent Distress
HEENT: Moist Mucous Membranes
Respiratory: Clear to Auscultation (anteriorly)
Cardiac: Regular Rhythm and S1/S2
GI: Soft
Neuro: Awake and Alert
Psych: Calm
Data Reviewed
-
Labs: Labs Reviewed by me
[2024-03-24 15:00] VITALS: BP 124/79
[2024-03-24 17:03] LABS: Glucose - Point of Care 143 mg/dl (70-99)
[2024-03-24] MEDS: ProAmatine 5 MG TUBE (17:14)
[2024-03-24] MEDS: LIPITOR 40 MG TUBE (17:14)
[2024-03-24] MEDS: NOVOLOG FLEXPEN-HIGH RESISTANCE 1 UNITS SC (17:15)
[2024-03-24 22:12] LABS: Glucose - Point of Care 81 mg/dl (70-99)
[2024-03-24] MEDS: LANTUS SC (22:42)
[2024-03-24] MEDS: COLACE LIQUID 100 MG TUBE (22:42)
[2024-03-24 23:00] VITALS: BP 138/76
[2024-03-24 23:51] VITALS: PULSE 98
[2024-03-25 07:00] VITALS: BP 132/70
[2024-03-25 07:24] LABS: Hematocrit 28.5 % (39.0-52.0); Hemoglobin 9.7 g/dL (13.0-18.0); Mean Corpuscular Hgb 29.9 pg (27.0-31.0); Mean Platelet Volume 12.1 fL (7.4-10.4); Platelet Count 147 10^3/uL (130-400); Red Blood Cell Count 3.24 10^6/uL (4.70-6.10); Red Cell Dist. Width 14.5 % (11.5-14.5)
[2024-03-25 08:33] LABS: Glucose - Point of Care 112 mg/dl (70-99)
[2024-03-25] MEDS: NOVOLOG FLEXPEN-HIGH RESISTANCE SC (09:31)
[2024-03-25] MEDS: MIRALAX TUBE (09:32)
[2024-03-25] MEDS: PLAVIX 75 MG TUBE (09:32)
[2024-03-25] MEDS: ELIQUIS 5 MG PO ×2 (09:32→21:12)
[2024-03-25] MEDS: AUGMENTIN 875 MG/125 MG 1 TABLET TUBE ×2 (09:32→21:12)
[2024-03-25] MEDS: ProAmatine 5 MG TUBE (09:32)
[2024-03-25] MEDS: COLACE LIQUID 100 MG TUBE ×2 (09:33→21:12)
[2024-03-25 12:15] LABS: Glucose - Point of Care 164 mg/dl (70-99)
[2024-03-25] MEDS: NOVOLOG FLEXPEN-HIGH RESISTANCE 2 UNITS SC ×2 (12:39→16:35)
--- NOTE | 2024-03-25 13:29 | W.PN.HOSP.TC ---
Today's Communication/Plan
-
cw abx
cw diet
DC planning
Assessment / Plan
Assessment / Plan
#Acute hypoxic respiratory failure requiring intubation in the ED, likely multifactorial due to PE and HCAP
- CT chest- rounded pleural-based focus of consolidation in the posterior right lower lobe on image #69 which measures approximately 4.4 x 2.5 cm.. There are 2 small similar findings posterior and medially in the right lower lobe on image 45 and 47.
These findings are likely developing pneumonia in right lower lobe as well.
- cont respiratory care, Duo-Nebs prn
- Off of vent support and off of O2 now
- Not bacteremic. COVID/flu negative. Sputum culture Shows usual respiratory raad. Legionella and streptococcal antigen negative. MRSA screen negative.
- clinical concern is for aspiration pneumonia . patient afebrile. Hemodynamically stable. White count normalized. switched antibiotics to oral Augmentin.
- cw speech therapies -cleared for IDDSI 4 /Mod thick liquids
#Small PE tiny thrombus in a segmental vessels supplying the right upper lobe
-Switched to oral Eliquis now that he is on oral diet
# Left superficial femoral vein thrombosis on recent admission-suspect PE from DVT.
#Anemia-drop in H&H noted without any obvious external bleeding. No rectal bleeding ,no hematemesis. Difficult historian so unable to localize if any bleeding source. In view of new anemia and significant drop a CT of the abdomen pelvis was
obtained and shows no intra-abdominal/retroperitoneal hemorrhage. His left thigh femur repair site looks clean without any hematoma. Continue to follow H&H- stable. Aim to keep more than 7.
#Diabetes mellitus type 2- Hyperglycemia since going on tube feeds. Lantus dose uptitrated. cw SSI for now and Introduce nutritional insulin depending on oral intake.
#Recent Acute left hip fracture. s/p left hip hemiarthroplasty on March 12, 2024. Stable, wound c/d/i at this time
- Plan at recent discharge was intermediate with follow-up with orthopedics in 2 weeks.
#Recent MRSA bacteriuria/ possible UTI-was on doxycycline on discharge . UA neg on this adx - hold further abx from standpoint
# History of severe dysphagia - related to strokes. Was on modified diet. Speech therapist evaluation ongoing.
#History of CVA-continue with statins and Plavix
#History essential hypertension-not on any medication in fact on midodrine.
Discussed with RN
DVT proph-hep gtt
Pt is Full Code
Anticipated Discharge: Within 24 hours
Subjective/Interval History
-
Date of Service: March 25, 2024
Patient more alert today.
Objective Data
-
Labs:
Laboratory Results
03/25/24
06:30
WBC 7.0
Hgb 9.7 L
Hct 28.5 L
Plt Count 147 D
Vital Signs:
Vital Signs
Temp Pulse Resp BP Pulse Ox
97.6 F 85 14 132/70 96
03/25/24 07:00 03/25/24 07:00 03/25/24 07:00 03/25/24 09:32 03/25/24 07:00
I&O
03/24/24 03/25/24 03/26/24
06:59 06:59 06:59
Intake Total 2250 / 2250 120 / 120 120 / 120
Output Total 1100 / 1100 1500 / 1500 450 / 450
Balance 1150 / 1150 -1380 / -1380 -330 / -330
Review of Systems
-
Unable to obtain full review of systems at this time due to: Language Barrier and Other (also aphasic from prior stroke)
Physical Exam
-
General: No Apparent Distress
HEENT: Moist Mucous Membranes
Respiratory: Clear to Auscultation
Cardiac: Regular Rhythm and S1/S2
GI: Soft
Neuro: Awake and Alert
Psych: Calm
Data Reviewed
-
Labs: Labs Reviewed by
[2024-03-25 15:00] VITALS: BP 143/102
[2024-03-25 16:30] LABS: Glucose - Point of Care 152 mg/dl (70-99)
[2024-03-25] MEDS: ProAmatine TUBE (17:06)
[2024-03-25] MEDS: LIPITOR 40 MG TUBE (17:09)
[2024-03-25 21:38] LABS: Glucose - Point of Care 163 mg/dl (70-99)
[2024-03-25 23:12] VITALS: BP 142/86
[2024-03-25] MEDS: LANTUS 0.280000000000000027 UNITS SC (23:55)
[2024-03-26 07:57] LABS: Triglycerides 114 mg/dl (10-149)
[2024-03-26 08:12] VITALS: BP 119/76
[2024-03-26] MEDS: ELIQUIS 5 MG PO ×2 (08:12→21:44)
[2024-03-26] MEDS: AUGMENTIN 875 MG/125 MG 1 TABLET TUBE (08:12)
[2024-03-26] MEDS: PLAVIX 75 MG TUBE (08:12)
[2024-03-26] MEDS: COLACE LIQUID 100 MG TUBE ×2 (08:12→21:44)
[2024-03-26] MEDS: MIRALAX 17 GRAMS TUBE (08:12)
[2024-03-26] MEDS: ProAmatine 5 MG TUBE ×2 (08:14→17:54)
[2024-03-26 08:21] LABS: Glucose - Point of Care 123 mg/dl (70-99)
[2024-03-26] MEDS: NOVOLOG FLEXPEN-HIGH RESISTANCE 1 UNITS SC ×2 (08:32→12:13)
--- NOTE | 2024-03-26 10:40 | PTOTSP ---
Speech Language Pathology
Pt seen for dysphagia tx. Baseline diet initiated 03/24. Per documentation, pt has only been consuming 5% of meals. Seen with tsp of puree and moderately thick liquids from breakfast tray. Pt consumed 1 container of yogurt and 1/2 cup of coffee
with QUALITY CONTROL SYSTEMS MANAGER feeding pt via tsp. Intermittent wet breath quality noted with large coughing episode x1 following puree and x1 following moderately thick liquids.
VSE completed this admission did not show any aspiration. However, given oral dysphagia, suspect intermittent aspiration at this time. WBC WNL, but pt is at high risk for aspiration and is currently admitted with VDRF secondary to PNA, so question
intermittent aspiration at baseline.
Recommend:
(1) Consider NPO
(2) GOC discussion
(3) Oral care 4x/day with suctioning as needed
(4) Meds crushed in puree
(5) Hold on Aspiration Risk Hydration Protocol (ARHP) given oral dysphagia and mentation
(6) QUALITY CONTROL SYSTEMS MANAGER to continue to follow
--- NOTE | 2024-03-26 11:05 | PTOTSP ---
Pt requires total care at baseline for functional mobility thus he does not have needs for PT. Will sign off. Discussed with RN and CM.
--- NOTE | 2024-03-26 11:42 | W.PN.HOSP.TC ---
Today's Communication/Plan
-
d/c planning
Assessment / Plan
Assessment / Plan
pt is a 69 year old male
Acute hypoxic respiratory failure requiring intubation in the ED, likely multifactorial due to PE and HCAP- CT chest- rounded pleural-based focus of consolidation in the posterior right lower lobe on image #69 which measures approximately 4.4 x 2.5
cm.. There are 2 small similar findings posterior and medially in the right lower lobe on image 45 and 47. These findings are likely developing pneumonia in right lower lobe as well- cont respiratory care, Duo-Nebs prn--Off of vent support and off
of O2 now- Not bacteremic. COVID/flu negative. Sputum culture shows usual respiratory raad. Legionella and streptococcal antigen negative. MRSA screen negative- clinical concern is for aspiration pneumonia . patient afebrile. Hemodynamically
stable. White count normalized. switched antibiotics to oral Augmentin- cw speech therapies -cleared for IDDSI 4 /Mod thick liquids
Small PE tiny thrombus in a segmental vessels supplying the right upper lobe -Switched to oral Eliquis now that he is on oral diet
Left superficial femoral vein thrombosis on recent admission-suspect PE from DVT.
Anemia--drop in H&H noted without any obvious external bleeding. No rectal bleeding ,no hematemesis. Difficult historian so unable to localize if any bleeding source. In view of new anemia and significant drop a CT of the abdomen pelvis was
obtained and shows no intra-abdominal/retroperitoneal hemorrhage. His left thigh femur repair site looks clean without any hematoma. Continue to follow H&H- stable. Aim to keep more than 7.
Diabetes mellitus type 2- Hyperglycemia since going on tube feeds. Lantus dose uptitrated. cw SSI for now and Introduce nutritional insulin depending on oral intake.
Recent Acute left hip fracture. s/p left hip hemiarthroplasty on March 12, 2024. Stable, wound c/d/i at this time- Plan at recent discharge was [facility] with follow-up with orthopedics in 2 weeks.
Recent MRSA bacteriuria/ possible UTI-was on doxycycline on discharge . UA neg on this adx - hold further abx from standpoint
History of severe dysphagia - related to strokes. Was on modified diet. Speech therapist evaluation ongoing.
History of CVA-continue with statins and Plavix
History essential hypertension-not on any medication in fact on midodrine.
Discussed with RN
DVT proph-hep gtt
Pt is Full Code--need to discuss with family
Anticipated Discharge: Within 24 hours
Subjective/Interval History
-
Date of Service: March 26, 2024
language barrier
Objective Data
-
Vital Signs:
max temp for 24 hours
03/25/24
15:00
Temp 98.7 F
Vital Signs
Temp Pulse Resp BP Pulse Ox
98.2 F 82 16 117/76 97
03/26/24 08:12 03/26/24 08:14 03/26/24 08:12 03/26/24 08:14 03/26/24 08:12
I&O
03/25/24 03/26/24 03/27/24
06:59 06:59 06:59
Intake Total 120 / 120 300 / 300
Output Total 1500 / 1500 2400 / 2400
Balance -1380 / -1380 -2100 / -2100
Review of Systems
-
Unable to obtain full review of systems at this time due to: Language Barrier
Physical Exam
-
General: Appears Chronically Ill
HEENT: Normocephalic and Atraumatic
Respiratory: Clear to Auscultation; Negative Wheezes or Rhonchi
Cardiac: Regular Rhythm and S1/S2; Negative Murmur
GI: Soft, Nontender, Nondistended and Normal Bowel Sounds
Musculoskeletal: No Clubbing, No Cyanosis and No Edema
Neuro: Awake
[2024-03-26 11:59] LABS: Glucose - Point of Care 108 mg/dl (70-99)
--- NOTE | 2024-03-26 12:04 | WOUNDNOTE ---
L 5TH TOE (LATERAL)
--- NOTE | 2024-03-26 12:05 | WOUNDNOTE ---
SACRAL/COCCYX (with photo flash)
--- NOTE | 2024-03-26 12:07 | WOUNDNOTE ---
L HEEL (lateral posterior)
--- NOTE | 2024-03-26 12:07 | WOUNDNOTE ---
R HEEL (POSTERIOR LATERAL)
--- NOTE | 2024-03-26 12:07 | WOUNDNOTE ---
R HEEL (POSTERIOR LATERAL)
--- NOTE | 2024-03-26 12:08 | WOUNDNOTE ---
R HEEL (with photo flash)
--- NOTE | 2024-03-26 12:09 | WOUNDNOTE ---
R HEEL (LATERAL POSTERIOR)
--- NOTE | 2024-03-26 12:10 | WOUNDNOTE ---
[facility] RN note: Patient's sacral ulcer open in center, pink with yellow fibrin suspect stage 3. Bilateral heel DTI without drainage. Dressings changed. Patient turned to R semi side lying position. Abductor splint maintained. L hip incision with
fabian D+I. Heels off bed with air chair cushions. Patient for possible transfer to SNF today. Penis distal shaft with serous blister anterior aspect. Assisted ESSENCE Guerrero with patient's condom cath removal. Barrier ointment applied. No condom cath to
be used at this time. Incontinence brief applied.
--- NOTE | 2024-03-26 13:30 | WOUNDNOTE ---
[facility] RN note: Updated Dr. Sebastian re: sacral ulcer and patient's condom cath removed d/t new penis serous blister. Dr. Sebastian approved update to wound care order. Care plan and discharge instructions updated.
[2024-03-26 15:25] VITALS: BP 107/73
--- NOTE | 2024-03-26 16:42 | CM ---
Addendum entered by Margarita Humphrey 03/27/24 15:24:
Spoke with Yaa at [facility] [phone] - aware pt for d/c. Can accept in AM
Spoke with pts wilson [facility] [phone] - updated regarding plan to return to [facility] tomorrow
Plan -anticipate return to [facility] tomorrow
Original Note:
Case management following for d/c planning
Pt from [facility] - plan to return when medically stable
Cm will cont to follow for d/c needs
Plan - [facility] when medically stable
[2024-03-26 17:48] LABS: Glucose - Point of Care 47 mg/dl (70-99)
[2024-03-26] MEDS: LIPITOR 40 MG TUBE (17:54)
[2024-03-26] MEDS: NOVOLOG FLEXPEN-HIGH RESISTANCE SC (17:54)
[2024-03-26 18:09] LABS: Glucose - Point of Care 50 mg/dl (70-99)
[2024-03-26 18:40] LABS: Glucose - Point of Care 68 mg/dl (70-99)
[2024-03-26 19:19] LABS: Glucose - Point of Care 96 mg/dl (70-99)
[2024-03-26] MEDS: TYLENOL ORAL SOLUTION 650 MG PO (21:44)
[2024-03-26 22:20] VITALS: PULSE 79
[2024-03-26 22:35] LABS: Glucose - Point of Care 95 mg/dl (70-99)
[2024-03-26] MEDS: LANTUS 0.280000000000000027 UNITS SC (22:56)
[2024-03-26 23:41] VITALS: BP 113/61
[2024-03-27 01:36] LABS: Glucose - Point of Care 97 mg/dl (70-99)
[2024-03-27] MEDS: DEXTROSE 50% SYRINGE 12.5 GRAMS IV ×2 (03:36→08:01)
[2024-03-27 03:39] LABS: Glucose - Point of Care 55 mg/dl (70-99)
[2024-03-27 03:58] LABS: Glucose - Point of Care 102 mg/dl (70-99)
[2024-03-27 05:50] LABS: Glucose - Point of Care 74 mg/dl (70-99)
[2024-03-27 07:00] VITALS: BP 123/63
[2024-03-27 07:05] LABS: Hematocrit 27.6 % (39.0-52.0); Hemoglobin 8.9 g/dL (13.0-18.0); Mean Corp Hgb Conc. 32.2 g/dL (33.0-37.0); Mean Corpuscular Hgb 29.5 pg (27.0-31.0); Mean Corpuscular Volume 91.4 fL (80.0-94.0); Mean Platelet Volume 10.4 fL (7.4-10.4); Platelet Count 286 10^3/uL (130-400); Red Blood Cell Count 3.02 10^6/uL (4.70-6.10); Red Cell Dist. Width 15.3 % (11.5-14.5); White Blood Cell Count 6.2 10^3/uL (4.8-10.8)
[2024-03-27 07:30] LABS: Blood Urea Nitrogen 11 mg/dl (9-20); Calcium 8.4 mg/dl (8.4-10.2); Carbon Dioxide 24 mmol/L (22-30); Chloride 106 mmol/L (98-107); Estimated Creatinine Clearance 110 ml/min; Glucose 60 mg/dl (70-99); Magnesium 2.1 mg/dl (1.6-2.3); Potassium 4.1 mmol/L (3.5-5.1); Sodium 135 mmol/L (135-145); eGFR > 60.00
[2024-03-27 07:52] LABS: Glucose - Point of Care 49 mg/dl (70-99)
[2024-03-27] MEDS: NOVOLOG FLEXPEN-HIGH RESISTANCE SC ×2 (07:55→12:17)
[2024-03-27 08:23] LABS: Glucose - Point of Care 86 mg/dl (70-99)
[2024-03-27] MEDS: MIRALAX 17 GRAMS TUBE (08:55)
[2024-03-27] MEDS: ProAmatine 5 MG TUBE ×2 (08:55→18:10)
[2024-03-27] MEDS: COLACE LIQUID 100 MG TUBE ×2 (08:55→21:19)
[2024-03-27] MEDS: ELIQUIS 5 MG PO ×2 (08:56→21:19)
[2024-03-27] MEDS: PLAVIX 75 MG TUBE (08:56)
[2024-03-27 12:00] LABS: Glucose - Point of Care 128 mg/dl (70-99)
--- NOTE | 2024-03-27 13:18 | W.PN.HOSP.TC ---
Today's Communication/Plan
-
plan for d/c back to [place] tomorrow
tried to call contact 03/26--will try again later today
Assessment / Plan
Assessment / Plan
pt is a 69 year old male
Acute hypoxic respiratory failure requiring intubation in the ED, likely multifactorial due to PE and HCAP- CT chest- rounded pleural-based focus of consolidation in the posterior right lower lobe on image #69 which measures approximately 4.4 x 2.5
cm.. There are 2 small similar findings posterior and medially in the right lower lobe on image 45 and 47. These findings are likely developing pneumonia in right lower lobe as well- cont respiratory care, Duo-Nebs prn--Off of vent support and off
of O2 now- Not bacteremic. COVID/flu negative. Sputum culture shows usual respiratory raad. Legionella and streptococcal antigen negative. MRSA screen negative- clinical concern is for aspiration pneumonia . patient afebrile. Hemodynamically
stable. White count normalized. switched antibiotics to oral Augmentin- cw speech therapies -cleared for IDDSI 4 /Mod thick liquids
Small PE tiny thrombus in a segmental vessels supplying the right upper lobe -Switched to oral Eliquis now that he is on oral diet
Left superficial femoral vein thrombosis on recent admission-suspect PE from DVT.
Anemia--drop in H&H noted without any obvious external bleeding. No rectal bleeding ,no hematemesis. Difficult historian so unable to localize if any bleeding source. In view of new anemia and significant drop a CT of the abdomen pelvis was
obtained and shows no intra-abdominal/retroperitoneal hemorrhage. His left thigh femur repair site looks clean without any hematoma. Continue to follow H&H- stable. Aim to keep more than 7.
Diabetes mellitus type 2- Hyperglycemia since going on tube feeds. Lantus dose uptitrated. cw SSI for now and Introduce nutritional insulin depending on oral intake.
Recent Acute left hip fracture. s/p left hip hemiarthroplasty on March 12, 2024. Stable, wound c/d/i at this time- Plan at recent discharge was long-term with follow-up with orthopedics in 2 weeks.
Recent MRSA bacteriuria/ possible UTI-was on doxycycline on discharge . UA neg on this adx - hold further abx from standpoint
History of severe dysphagia - related to strokes. Was on modified diet. Speech therapist evaluation ongoing.
History of CVA-continue with statins and Plavix
History essential hypertension-not on any medication in fact on midodrine.
Discussed with RN
DVT proph-hep gtt
Pt is Full Code--need to discuss with family
Anticipated Discharge: Within 24 hours
Subjective/Interval History
-
Date of Service: March 27, 2024
pt brighter--nursing reported at 75% of his meal--needs to be fed
Objective Data
-
Labs:
Laboratory Results
03/27/24
05:50
WBC 6.2
Hgb 8.9 L
Hct 27.6 L
Plt Count 286 D
Sodium 135
Potassium 4.1
Chloride 106
Carbon Dioxide 24
BUN 11
Creatinine 0.6 L
Glucose 60 L
Calcium 8.4
Vital Signs:
max temp for 24 hours
03/26/24
23:41
Temp 98.7 F
Vital Signs
Temp Pulse Resp BP Pulse Ox
97.7 F 86 18 123/63 97
03/27/24 07:00 03/27/24 08:55 03/27/24 07:00 03/27/24 08:55 03/27/24 07:00
I&O
03/26/24 03/27/24 03/28/24
06:59 06:59 06:59
Intake Total 300 / 300 120 / 120
Output Total 2400 / 2400 400 / 400
Balance -2100 / -2100 -280 / -280
Review of Systems
-
Unable to obtain full review of systems at this time due to: Patient Non-verbal
Physical Exam
-
General: Well Developed, Well Nourished and No Apparent Distress
HEENT: Normocephalic and Atraumatic
Respiratory: Clear to Auscultation; Negative Wheezes or Rhonchi
Cardiac: Regular Rhythm and S1/S2; Negative Murmur
GI: Soft, Nontender, Nondistended and Normal Bowel Sounds
Musculoskeletal: No Clubbing, No Cyanosis and No Edema
Neuro: Other (left arm contracture)
--- NOTE | 2024-03-27 14:30 | PTOTSP ---
Speech Language Pathology
Pt seen for dysphagia tx. Per discussion with RN, he consumed 75% of breakfast with no coughing episodes. Seen with lunch tray. Pt awake upon arrival. Repositioned for upright position in bed. Oral care completed with use of suction toothbrush.
Provided 4 tsps of moderately thick liquids. Incoordinated breath-swallow noted at times with pt exhaling while accepting bite x1 and spraying liquid off spoon with exhale. However, he tolerated these 4 tsps well. Trialed tsp of puree with
immediate prolonged significant coughing episode. Pt coughed puree out of oral cavity. Once this cleared, trialed another tsp of moderately thick liquids with same coughing response. Asked pt if it felt like it went down the wrong way, and he
shook his head 'yes.' When asked if he wanted to try more, he shook his head 'no.'
Continue to suspect that pt is intermittently aspirating. WBC WNL, but pt is at high risk for aspiration and is currently admitted with VDRF secondary to PNA, so question intermittent aspiration at baseline.
Recommend:
(1) NPO
(2) GOC discussion
(3) Oral care 4x/day with suctioning as needed
(4) Meds crushed in puree
(5) Hold on Aspiration Risk Hydration Protocol (ARHP) given oral dysphagia and mentation
(6) ROOM SERVICE SERVER to continue to follow
[2024-03-27 15:00] VITALS: BP 118/72
--- NOTE | 2024-03-27 15:45 | W.PN.UPDATE ---
Update Note
Progress Note Update
Spoke with patient's cousin Fili RE: concerns with speech and swallow, risk for aspiration, DNR, feeding tubes, etc.
Found out that patient is fluent in both Swedish and Macedonian but as recently he has not been talking and his cousin does not understand why... Approximately 1 year ago patient was DNR/DNI and essentially said 'let me go' but his cousin stated that he
had lost his recently and then had the stroke.
He wants to try to speak with his cousin regarding what his wishes would be however, he stated that if this is his current 'new stable' state; he would not want any feeding tubes moving forward. I did suggest that perhaps the best plan would be to
return him to [facility] tomorrow with ongoing discussions regarding CODE STATUS, feeding tubes, hospice etc. pending on the patient's progress.
For now, no changes.
[2024-03-27 16:55] LABS: Glucose - Point of Care 185 mg/dl (70-99)
[2024-03-27] MEDS: LIPITOR 40 MG TUBE (18:10)
[2024-03-27] MEDS: NOVOLOG FLEXPEN-HIGH RESISTANCE 2 UNITS SC (18:13)
[2024-03-27 21:34] LABS: Glucose - Point of Care 116 mg/dl (70-99)
[2024-03-27 22:00] VITALS: PULSE 80
[2024-03-27] MEDS: LANTUS 0.280000000000000027 UNITS SC (22:24)
[2024-03-27 23:10] VITALS: BP 142/86
[2024-03-28 07:00] VITALS: BP 118/71
[2024-03-28 08:08] LABS: Glucose - Point of Care 53 mg/dl (70-99)
[2024-03-28] MEDS: COLACE LIQUID 100 MG TUBE (08:12)
[2024-03-28] MEDS: NOVOLOG FLEXPEN-HIGH RESISTANCE SC (08:12)
[2024-03-28] MEDS: MIRALAX 17 GRAMS TUBE (08:12)
[2024-03-28] MEDS: PLAVIX 75 MG TUBE (08:13)
[2024-03-28] MEDS: ProAmatine 5 MG TUBE (08:13)
[2024-03-28] MEDS: ELIQUIS 5 MG PO (08:13)
[2024-03-28 08:44] LABS: Glucose - Point of Care 68 mg/dl (70-99)
--- NOTE | 2024-03-28 08:50 | PTOTSP ---
Speech Language Pathology
Pt seen for dysphagia tx with breakfast tray. PCT had started breakfast and reported coughing episode with pureed waffles in syrup. Same coughing episode noted with [employer] PIPING DESIGNER with pureed waffles, so did not provide these further. No coughing with 1
bite of eggs, 1 bite of cream of rice, yogurt, or pureed peaches. Trialed 10 tsps of moderately thick liquids with significant wet coughing episode x1. Suspect aspiration. Pt continues to demonstrate inconsistent aspiration events with P.O. and
is at a high risk for negative consequences of aspiration given dependence on feeding, dental caries, and bedbound status.
Recommend:
(1) Continue to recommend NPO. MD discussing overall plan with family.
(2) If diet is to be continued, IDDSI Level 4 (Puree) and Moderately thick liquids via tsp best option, but aspiration likely to occur intermittently. If cough noted with specific item, do not provide further
(3) Meds crushed in puree
(4) [employer] PIPING DESIGNER to continue to follow
[2024-03-28 09:11] LABS: Glucose - Point of Care 110 mg/dl (70-99)
--- NOTE | 2024-03-28 09:11 | CM ---
Addendum entered by Margarita Humphrey 03/28/24 10:51:
Transport arranged for 1200PM
Yaa at [facility] made aware
Spoke with Fili, pts cousin at bedside - aware of transport time
Pt currently MA pending - Discussed with Fili payment for ambulance - reports he will pay for transport
Given phone number to call for payment [phone]
Original Note:
Case management following for d/c planning
Pt for discharge
Plan - to return to [facility]
R - [phone], ext [phone]
F - [phone]
--- NOTE | 2024-03-28 09:55 | W.PN.HOSP.TC ---
Today's Communication/Plan
-
d/c
Assessment / Plan
Assessment / Plan
pt is a 69 year old male
Acute hypoxic respiratory failure requiring intubation in the ED, likely multifactorial due to PE and HCAP- CT chest- rounded pleural-based focus of consolidation in the posterior right lower lobe on image #69 which measures approximately 4.4 x 2.5
cm.. There are 2 small similar findings posterior and medially in the right lower lobe on image 45 and 47. These findings are likely developing pneumonia in right lower lobe as well- cont respiratory care, Duo-Nebs prn--Off of vent support and off
of O2 now- Not bacteremic. COVID/flu negative. Sputum culture shows usual respiratory raad. Legionella and streptococcal antigen negative. MRSA screen negative- clinical concern is for aspiration pneumonia . patient afebrile. Hemodynamically
stable. White count normalized. switched antibiotics to oral Augmentin- cw speech therapies -cleared for IDDSI 4 /Mod thick liquids
Small PE tiny thrombus in a segmental vessels supplying the right upper lobe -Switched to oral Eliquis now that he is on oral diet
Left superficial femoral vein thrombosis on recent admission-suspect PE from DVT.
Anemia--drop in H&H noted without any obvious external bleeding. No rectal bleeding ,no hematemesis. Difficult historian so unable to localize if any bleeding source. In view of new anemia and significant drop a CT of the abdomen pelvis was
obtained and shows no intra-abdominal/retroperitoneal hemorrhage. His left thigh femur repair site looks clean without any hematoma. Continue to follow H&H- stable. Aim to keep more than 7.
Diabetes mellitus type 2- Hyperglycemia since going on tube feeds. Lantus dose uptitrated. cw SSI for now and Introduce nutritional insulin depending on oral intake.
Recent Acute left hip fracture. s/p left hip hemiarthroplasty on March 12, 2024. Stable, wound c/d/i at this time- Plan at recent discharge was long-term with follow-up with orthopedics in 2 weeks.
Recent MRSA bacteriuria/ possible UTI-was on doxycycline on discharge . UA neg on this adx - hold further abx from standpoint
History of severe dysphagia - related to strokes. Was on modified diet. Speech therapist evaluation ongoing.
History of CVA-continue with statins and Plavix
History essential hypertension-not on any medication in fact on midodrine.
Discussed with RN
DVT proph-hep gtt
Pt is Full Code--discussed with family--see update note
Anticipated Discharge: Today
Subjective/Interval History
-
Date of Service: March 28, 2024
pt nonverbal with me
Objective Data
-
Vital Signs:
max temp for 24 hours
03/27/24
23:10
Temp 98.5 F
Vital Signs
Temp Pulse Resp BP Pulse Ox
97.9 F 85 16 118/71 94
03/28/24 07:00 03/28/24 08:13 03/28/24 07:00 03/28/24 08:13 03/28/24 07:00
I&O
03/27/24 03/28/24 03/29/24
06:59 06:59 06:59
Intake Total 120 / 120 180 / 180
Output Total 400 / 400
Balance -280 / -280 180 / 180
Review of Systems
-
Unable to obtain full review of systems at this time due to: Patient Non-verbal
Physical Exam
-
General: Well Developed, Well Nourished and No Apparent Distress
HEENT: Normocephalic and Atraumatic
Respiratory: Clear to Auscultation and Wheezes; Negative Rhonchi
Cardiac: Regular Rhythm and S1/S2; Negative Murmur
GI: Soft, Nontender, Nondistended and Normal Bowel Sounds
Musculoskeletal: No Clubbing, No Cyanosis and No Edema
Neuro: Other (residual stroke effects)
--- NOTE | 2024-03-28 12:09 | W.PN.UPDATE ---
Update Note
Progress Note Update
Spoke with patient's cousin, Fili--he tells me that he did have a conversation with the patient who does not wish to have a feeding tube, and he wishes to reinstate the DNR status.
He is agreeable with him going back to the [facility] today.
[2024-03-28 12:27] VITALS: BP 141/81
--- NOTE | 2024-03-28 14:26 | W.DCSUMMARY ---
Discharge Summary
Discharge Data
Date of Admission: 03/17/24
Date of Discharge: 03/28/24
-
Pending Results: No
Hospital Course
Primary care physician : Jesus Guerra
Principal Discharge diagnosis : Acute hypoxemic respiratory failure requiring intubation due to pulmonary embolism and healthcare acquired pneumonia
Chronic Discharge diagnosis : Left superficial femoral vein thrombosis, acute anemia without obvious bleeding, type 2 diabetes mellitus, recent acute left hip fracture status post left hip hemiarthroplasty on March 12, 2024, recent MRSA bacteriuria,
history of severe dysphagia, history of stroke, essential hypertension
Hospital Course : Patient was a 69-year-old male who was here from 03/06 through 03/14 with toxic metabolic encephalopathy due to methicillin-resistant Staphylococcus aureus urinary tract infection with sepsis and bacteremia and an acute left hip
fracture with repair who presented this admission being unresponsive and short of breath. He was intubated in the emergency department. Paperwork provided to EMS at the time of admission showed that the patient was comfort measures only, DNR/DNI
however patient recently rescinded that and wished for full aggressive care. Patient was thereafter intubated and admitted to the intensive care unit.
Problem #1: Acute hypoxemic respiratory failure requiring intubation. Likely due to pulmonary embolism and healthcare acquired pneumonia. Patient was started on broad-spectrum antibiotics as well as anticoagulation. Sputum culture showed normal
respiratory raad. Patient was not bacteremic. COVID and flu were negative. Legionella and streptococcal antigen was negative. MRSA screen was negative. Patient was able to be extubated. He was seen in consultation by pulmonary/eddy current inspector
while he was here in the hospital. He completed his course of Augmentin here in the hospital. Anticoagulation was continued.
Problem #2: All other medical issues. These include Left superficial femoral vein thrombosis, acute anemia without obvious bleeding, type 2 diabetes mellitus, recent acute left hip fracture status post left hip hemiarthroplasty on March 12, 2024,
recent MRSA bacteriuria, history of severe dysphagia, history of stroke, essential hypertension. These medical issues were stable during his hospitalization. Medications were continued as able.
Problem #3: Severe dysphagia. This is likely due from his previous strokes. He was seen in consultation by speech and did have a video swallow however despite 'passing' his VSD speech was concerned about aspiration and significant coughing with
oral intake. They recommended goals of care discussion. I did speak with the patient's cousin and power of commonwealth attorney, Fili. He did have a conversation with the patient who stated to him that he (the patient) would not want a feeding tube and
wanted to reinstate his DNR status. Ongoing discussions regarding comfort measures, palliative care, hospice should be carried out at the senior care.
Patient is stable for discharge to the senior care at this time. If there are any questions regarding this dictation or his hospital stay, please not hesitate to call. Our office number is [phone].
Time for discharge 38 minutes.
Discharge Plan
-
Patient Disposition: [facility]NF
Discharge Diagnosis/Procedures: Acute hypoxemic respiratory failure requiring intubation multifactorial from pulmonary embolism and healthcare acquired pneumonia, left superficial femoral vein thrombosis, anemia likely of chronic disease, type 2
diabetes mellitus, recent acute left hip fracture with repair, recent MRSA bacteriuria, history of severe dysphagia, history of stroke, essential hypertension
Condition: Fair
Diet: Other diet
Additional Diets: pureed with moderately think liquids
Activity: As tolerated
Driving Restrictions: No driving
Bathing Restrictions: None
Activity Restrictions/Additional Instructions:
Wound Care Instructions
Sacrum-clean with saline or soap and water, no sting barrier wipe (allow to dry), honey gel prn yellow slough, silicone border foam, change daily and prn loosened dressing (add alginate prior to foam prn large amount of drainage).
Bilateral heels-no sting barrier wipe (allow to dry), foam dressing, change q 3 days and prn loosened dressing.
Penis blister-barrier ointment BID.
L hip incisional fabian due to be removed 03/26/24, check with ortho Dr. Bean or orthopedic PA Anel Nelson. Follow up with orthopedic surgeon.
Air mattress.
Turning schedule
elevate heels off bed with pillow/s and air chair cushion/s.
High end pressure redistributing chair cushion (i.e. Roho).
Follow up with wound home care aide or at wound care center call for an appointment.
Spoke with patient's cousin, Fili 03/27/24. Ongoing discussions regarding CODE STATUS and goals of care (hospice, palliative care, etc.) given patient's significant aspiration history and significant concern of speech. Fili wants to try to talk to
the patient regarding his wishes; however, he believes that he would not want any aggressive measures if his condition does not improve
As mentioned, ongoing discussions once he gets back to his senior care
Instructions: Generalized Weakness (DC), BLOOD PRESSURE
Referrals:
Jesus Guerra, DO [Family Provider] - in less than 1 week
Prescriptions:
New
polyethylene glycol 3350 [HealthyLax] 17 gram Powder In Packet
17 g feeding tube DAILY Qty: 0 0RF
Eliquis 5 mg Tablet
5 mg PO BID Qty: 0 0RF
Continued
midodrine 5 mg Tablet
5 mg PO BID
Rx Instructions:
hold for sbp>140
magnesium hydroxide [Milk of Magnesia] 400 mg/5 mL Suspension
30 ml PO DAILY PRN (Reason: if no bm x3 days)
nystatin 100,000 unit/gram Powder
1 applic TOPICAL BID
Rx Instructions:
apply to rash on groin area
bisacodyl 10 mg suppository
10 mg SD DAILY PRN (Reason: if mom ineffective)
atorvastatin 40 mg tablet
40 mg PO QPM
thiamine HCl (vitamin B1) 100 mg tablet
100 mg PO BID
clopidogrel 75 mg tablet
75 mg PO DAILY
Fleet Enema 19-7 gram/118 mL Enema
118 ml SD DAILY PRN (Reason: if suppository is ineffective)
mupirocin 2 % Ointment
1 applic TOPICAL DAILY
Patient Comments:
03/06/2024: apply L foot great toe
furosemide 20 mg Tablet
20 mg PO DAILY
cyclobenzaprine 5 mg Tablet
5 mg PO DAILY
melatonin 1 mg Tablet
8 mg PO DAILY@1999
pregabalin [Lyrica] 50 mg capsule
50 mg PO DAILY
pregabalin [Lyrica] 75 mg capsule
75 mg PO QPM
insulin glargine [Lantus Solostar U-100 Insulin] 100 unit/mL (3 mL) insulin pen
21 unit SC HS
tamsulosin 0.4 mg Capsule
0.4 mg PO DAILYPRN PRN (Reason: bladder scan volume > 400 mL) Qty: 0 0RF
sennosides-docusate sodium [Stool Softener-Stimulant Laxat] 8.6-50 mg Tablet
1 tab PO BIDPRN PRN (Reason: constipation) Qty: 0 0RF
docusate sodium 100 mg Capsule
100 mg PO BID Qty: 0 0RF
acetaminophen [Tylenol Extra Strength] 500 mg tablet
1,000 mg PO Q6
insulin aspart U-100 100 unit/mL (3 mL) insulin pen
2 unit SC AC
Discontinued
doxycycline hyclate 100 mg capsule
100 mg PO Q12
Rx Instructions:
take for 6 more days
Discharge Orders:
Discharge Patient (As Directed); Ordered 03/28/24
Ordered By: Annie Sebastian
Discharge Date and Time
Discharge Date/Time: 03/28/24 12:37
Print Language: BENINESE
== END 2024-03-28 12:37 | DRG 208 ==
LOC: 3 WEST ACU 20:14
PROVIDERS: Internal Medicine; Internal Medicine Critical Care Medicine; Nurse Practitioner Primary Care; ADMITTING PHYSICIAN Internal Medicine; ATTENDING PHYSICIAN Internal Medicine; CONSULT PHYSICIAN Internal Medicine Critical Care Medicine; CONSULT PHYSICIAN Specialist; EMERGENCY PHYSICIAN Emergency Medicine; FAMILY PHYSICIAN Internal Medicine
PROC: 5A1945Z Respiratory Ventilation, 24-96 Consecutive Hours (ICD-10-PCS; 2024-03-17)
DX: J96.01 Acute respiratory failure with hypoxia (principal); J18.9 Pneumonia, unspecified organism; G92.8 Other toxic encephalopathy; I26.99 Other pulmonary embolism without acute cor pulmonale; I82.412 Acute embolism and thrombosis of left femoral vein; I10 Essential (primary) hypertension; N47.2 Paraphimosis; Y95 Nosocomial condition; D63.8 Anemia in other chronic diseases classified elsewhere; I69.320 Aphasia following cerebral infarction; E11.65 Type 2 diabetes mellitus with hyperglycemia; Z11.52 Encounter for screening for COVID-19
CPT/HCPCS: 31500; 36600; 43752; 51702; 70450; 71045; 71275; 74018; 74176; 74230; 80048; 80053; 80076; 81003; 82140; 82550; 82805; 82962; 83605; 83735; 84100; 84478; 85014; 85018; 85025; 85027; 85045; 85610; 85730; 87040; 87070; 87205; 87449; 87502; 87641; 87811; 92526; 92610; 92611; 93005; 94002; 94003; 94640; 94660; 96365; 96366; 96367; 96375; 97163; 97167; 97530; 99291; J3480; Q9967